=== PATIENT | female | born 1940 | race Caucasian/White ===

== ENCOUNTER 2018-08-11 09:06 | Inpatient (IN) | payer MEDICARE, OTHER ==
[~2018-08-11] VITALS: Ht 172.7 cm; Wt 84.6 kg
--- OUTSIDE RECORDS SUMMARY | 2018-08-11 09:10 | XMS REPORT | Continuity of Care Document ---
Author Author [facility] Interface Address Unknown Phone Unavailable Problems Problem Status Onset Date Classification Date Reported Comments Source ARANESP 100 MCG / [id number] / [id number] / D Active 07/06/2017 [facility] FERAHEME 510MG / [id number] / [id number] / DX: Active 04/09/2017 [facility] M25.561 - PAIN IN RIGHT KNEE Active 12/31/2015 [facility] [place] CKD (<span ID="[id number]">Confirmed</span>) Resolved Problem 08/16/2017 [facility] DM (<span ID="[id number]">Confirmed</span>) Resolved Problem 08/16/2017 [facility] HTN (<span ID="[id number]">Confirmed</span>) Resolved Problem 08/16/2017 [facility] Iron deficiency anemia Resolved Problem 08/16/2017 [facility] Arthritis Resolved Problem 08/16/2017 [facility] ANEMIA IN CHRONIC KIDNEY DISEASE Active [facility] CHRONIC KIDNEY DISEASE, UNSPECIFIED Active [facility] CHRONIC KIDNEY DISEASE, STAGE 4 (SEVERE) Active [facility] Medications Medication Details Route Status Patient Instructions Ordering Provider Order Date Source darbepoetin ryan 100 microgram, 1 mL, Route: SUB-Q, Drug form: INJ, ONCALL, Start date: 07/23/17 11:00:00 CDT, Duration: 8 hr, Stop date: 07/23/17 18:59:00 CDTNotes: (Same as: Aranesp) Non-Formulary Inactive 07/23/2017 [facility] darbepoetin ryan 100 microgram, 1 mL, Route: SUB-Q, Drug form: INJ, ONCALL, Start date: 07/16/17 11:00:00 CDT, Duration: 8 hr, Stop date: 07/16/17 18:59:00 CDTNotes: (Same as: Aranesp) Non-Formulary Inactive 07/16/2017 [facility] darbepoetin ryan 100 microgram, 1 mL, Route: SUB-Q, Drug form: INJ, ONCALL, Start date: 07/15/17 16:00:00 CDT, Duration: 6 hr, Stop date: 07/15/17 21:59:00 CDTNotes: (Same as: Aranesp) Non-Formulary No Longer Active 07/15/2017 [facility] Feraheme + sodium chloride 0.9% 100 mL INJ (for IV set) 100 mL 510 mg, 17 mL, 200 ml/hr, Infuse Over: 30 minutes, Route: IVPB, 100, ONCALL, Start date: 05/05/17 9:00:00 CDT, Duration: 10 hr, Stop date: 05/05/17 18:59:00 CDTNotes: USE IMMEDIATELY - PT IS ON CAMPUS ALREADY Same as: Feraheme Non- Formulary DO NOT administer undiluted IVP. This agent is reserved for use by Nephrologists in patients who are unable to tolerate oral therapy. MEDICATION WASTE Product Size: 510 mg Product Wasted: ___ mg Inactive 05/05/2017 [facility] Feraheme + sodium chloride 0.9% 100 mL INJ (for IV set) 100 mL 510 mg, 200 ml/hr, Infuse Over: 30 minutes, Route: IVPB, 100, ONCALL, Start date: 04/20/17 9:00:00 CDT, Duration: 10 hr, Stop date: 04/20/17 18:59:00 CDTNotes: Same as: Feraheme Non-Formulary DO NOT administer undiluted IVP. This agent is reserved for use by Nephrologists in patients who are unable to tolerate oral therapy. MEDICATION WASTE Product Size: 510 mg Product Wasted: ___ mg Inactive 04/20/2017 [facility] donepezil 10 mg, PO, Bedtime, 0 Refill(s) Active 04/13/2017 [facility] carvedilol 25 MG Oral Tablet [Coreg] 25 mg=1 tab, PO, BID, # 60 tab, 0 Refill(s) Active 04/13/2017 [facility] Insulin Glargine 100 UNT/ML Injectable Solution [Lantus] 24 unit, SUB-Q, Bedtime, 0 Refill(s) Active 04/13/2017 [facility] Diphenhydramine Hydrochloride 25 MG Oral Capsule [Benadryl] 25 mg=1 cap, PO, Bedtime, 0 Refill(s) Active 04/13/2017 [facility] Aspirin 81 mg, PO, Daily, 0 Refill(s) Active 04/13/2017 [facility] Iron Chews 65 mg, PO, BID, 0 Refill(s) Active 04/13/2017 [facility] pravastatin 20 mg oral tablet 20 mg=1 tab, PO, Bedtime, # 30 tab, 0 Refill(s) Active 04/13/2017 [facility] NovoLog 8 unit, SUB-Q, Daily, 0 Refill(s) Active 04/13/2017 [facility] Amlodipine 10 mg, PO, Daily, 0 Refill(s) Active 04/13/2017 [facility] Feraheme + sodium chloride 0.9% 100 mL INJ (for IV set) 100 mL 510 mg, 200 ml/hr, Infuse Over: 30 minutes, Route: IVPB, 100, ONCALL, Start date: 04/13/17 9:00:00 CDT, Duration: 10 hr, Stop date: 04/13/17 18:59:00 CDTNotes: Same as: Feraheme Non-Formulary DO NOT administer undiluted IVP. This agent is reserved for use by Nephrologists in patients who are unable to tolerate oral therapy. MEDICATION WASTE Product Size: 510 mg Product Wasted: ___ mg Inactive 04/13/2017 [facility] Allergies, Adverse Reactions, Alerts Substance Category Reaction Severity Reaction type Status Date Reported Comments Source Immunizations Immunization Date Given Site Status Last Updated Comments Source Results Order Name Results Value Reference Range Date Interpretation Comments Source HEMATOLOGY Hct 37.5 % 36.0 - 48.0 08/05/2017 [facility] HEMATOLOGY Hgb 12.3 g/dL 12.0 - 16.0 08/05/2017 [facility] HEMATOLOGY Hct 35.8 % 36.0 - 48.0 07/29/2017 [facility] HEMATOLOGY Hgb 11.5 g/dL 12.0 - 16.0 07/29/2017 [facility] HEMATOLOGY Hct 32.0 % 36.0 - 48.0 07/22/2017 [facility] HEMATOLOGY Hgb 10.6 g/dL 12.0 - 16.0 07/22/2017 [facility] Knee 1-2 Views unilateral DX Knee 1-2 Views unilateral DX EXAMINATION: Right knee AP and lateral. HISTORY: pain in right knee; right knee arthritis FINDINGS: Frontal and lateral views of the right knee are performed without comparison. There is a 3 component right total knee arthroplasty in near anatomic alignment without periprosthetic fracture or osteolysis. There is no right knee effusion. Arterial atherosclerotic calcifications are noted. IMPRESSION: 1. Right total knee arthroplasty in near-anatomic alignment. 12/31/2015 - - Read by: oJhann Charles MD Dictated Date/time: 12/31/15 14:25 Electronically Signed by: Johann Charles MD 12/31/15 14:26 FINAL REPORT [facility] Vital Signs Vital Sign Value Date Comments Source Heart Rate 60 07/22/2017 [facility] Respitory Rate 18 07/22/2017 [facility] Temperature Oral (F) 97.9 F 07/22/2017 [facility] Systolic (mm Hg) 122 07/22/2017 [facility] Diastolic (mm Hg) 73 07/22/2017 [facility] Height 172.72 cm 07/15/2017 [facility] Weight 76.818 07/15/2017 [facility] BMI Calculated 25.75 07/15/2017 [facility] Heart Rate 61 07/15/2017 [facility] Temperature Oral (F) 97.9 F 07/15/2017 [facility] Respitory Rate 18 07/15/2017 [facility] Systolic (mm Hg) 123 07/15/2017 [facility] Diastolic (mm Hg) 75 07/15/2017 [facility] Systolic (mm Hg) 164 05/05/2017 [facility] Diastolic (mm Hg) 75 05/05/2017 [facility] Respitory Rate 16 05/05/2017 [facility] Heart Rate 58 05/05/2017 [facility] Temperature Oral (F) 97.8 F 05/05/2017 [facility] Respitory Rate 18 04/13/2017 [facility] Systolic (mm Hg) 156 04/13/2017 [facility] Diastolic (mm Hg) 74 04/13/2017 [facility] Heart Rate 64 04/13/2017 [facility] Temperature Oral (F) 98.2 F 04/13/2017 [facility] Weight 79 04/12/2017 [facility] BMI Calculated 27.34 04/12/2017 [facility] Height 170 cm 04/12/2017 [facility] Encounters Location Location Details Encounter Type Encounter Number Reason For Visit Attending Provider ADM Date DC Date Status Source [facility] [id number] Cortez Carrillo Jr 12/31/2015 01/01/2016 [facility] Recurring [id number] Dimple Shepard 04/13/2017 05/13/2017 [facility] Recurring [id number] [place] Josesitojose 07/15/2017 08/14/2017 [facility] Procedures Procedure Code Date Perfomer Comments Source Bladder surveillance - check cystoscopy [id number] [facility] Hip replacement [id number] [facility] Hysterectomy [id number] [facility] Parathyroidectomy [id number] [facility]
--- OUTSIDE RECORDS SUMMARY | 2018-08-11 09:10 | XMS REPORT | Summary of Care ---
Author Author [facility] Organization [facility] Address Unknown Phone Unavailable Encounter VENTURA Mari(FIN) [id number] Date(s): 04/13/17 - 05/12/[address] [facility] [address] [place] [address]- Discharge Disposition: Home or Self Care Attending Physician: Dimple Shepard MD Referring Physician: Dimple Shepard MD Vital Signs Most recent to 1 2 oldest [Reference Range]: Height 170 cm (04/12/17 3:06 PM) Temperature Oral 97.8 DegF 98.2 DegF [96.4-99.1 DegF] (05/05/17 9:18 AM) (04/13/17 9:15 AM) Blood Pressure 164/75 mmHg 156/74 mmHg [90-140/60-90 mmHg] *HI* *HI* (05/05/17 9:18 AM) (04/13/17 9:15 AM) Respiratory Rate 16 BRMIN 18 BRMIN [14-20 BRMIN] (05/05/17 9:18 AM) (04/13/17 9:15 AM) Peripheral Pulse 58 bpm 64 bpm Rate [60-100 bpm] *LOW* (04/13/17 9:15 AM) (05/05/17 9:18 AM) Weight 79 kg (04/12/17 3:06 PM) Body Mass Index 27.34 m2 (04/12/17 3:06 PM) Problem List Condition Effective Dates Status Health Status Informant CKD (chronic kidney Resolved disease)(Confirmed) DM (diabetes Resolved mellitus)(Confirmed) HTN Resolved (hypertension)(Confi rmed) Iron deficiency Resolved anemia(Confirmed) Arthritis(Confirmed) Resolved Allergies, Adverse Reactions, Alerts Substance Reaction Severity Status NKDA Active Medications amLODIPine 10 mg, PO, Daily, 0 Refill(s) Start Date: 04/13/17 Status: Ordered aspirin 81 mg, PO, Daily, 0 Refill(s) Start Date: 04/13/17 Status: Ordered Benadryl 25 mg oral capsule 25 mg=1 cap, PO, Bedtime, 0 Refill(s) Start Date: 04/13/17 Status: Ordered Coreg 25 mg oral tablet 25 mg=1 tab, PO, BID, # 60 tab, 0 Refill(s) Start Date: 04/13/17 Status: Ordered donepezil 10 mg, PO, Bedtime, 0 Refill(s) Start Date: 04/13/17 Status: Ordered Feraheme + sodium chloride 0.9% 100 mL INJ (for IV set) 100 mL 510 mg, 200 ml/hr, Infuse Over: 30 minutes, Route: IVPB, 100, ONCALL, Start date : 04/20/17 9:00:00 CDT, Duration: 10 hr, Stop date: 04/20/17 18:59:00 CDT Notes: Same as: FerahemeNon-FormularyDO NOT administer undiluted IVP. This agen t is reserved for use by Nephrologists in patients who are unable to tolerate or al therapy. MEDICATION WASTE Product Size: 510 mgProduct Wasted: ___ mg Start Date: 04/20/17 Stop Date: 04/20/17 Status: Ordered Feraheme + sodium chloride 0.9% 100 mL INJ (for IV set) 100 mL 510 mg, 17 mL, 200 ml/hr, Infuse Over: 30 minutes, Route: IVPB, 100, ONCALL, Sta rt date: 05/05/17 9:00:00 CDT, Duration: 10 hr, Stop date: 05/05/17 18:59:00 CDT Notes: USE IMMEDIATELY - PT IS ON CAMPUS ALREADYSame as: FerahemeNon-FormularyDO NOT administer undiluted IVP. This agent is reserved for use by Nephrologists in patients who are unable to tolerate oral therapy. MEDICATION WASTE Prod uct Size: 510 mgProduct Wasted: ___ mg Start Date: 05/05/17 Stop Date: 05/05/17 Status: Completed Feraheme + sodium chloride 0.9% 100 mL INJ (for IV set) 100 mL 510 mg, 200 ml/hr, Infuse Over: 30 minutes, Route: IVPB, 100, ONCALL, Start date : 04/13/17 9:00:00 CDT, Duration: 10 hr, Stop date: 04/13/17 18:59:00 CDT Notes: Same as: Scott-FormularyDO NOT administer undiluted IVP. This agen t is reserved for use by Nephrologists in patients who are unable to tolerate or al therapy. MEDICATION WASTE Product Size: 510 mgProduct Wasted: ___ mg Start Date: 04/13/17 Stop Date: 04/13/17 Status: Completed Iron Chews 65 mg, PO, BID, 0 Refill(s) Start Date: 04/13/17 Status: Ordered Lantus 100 units/mL 24 unit, SUB-Q, Bedtime, 0 Refill(s) Start Date: 04/13/17 Status: Ordered NovoLOG 8 unit, SUB-Q, Daily, 0 Refill(s) Start Date: 04/13/17 Status: Ordered pravastatin 20 mg oral tablet 20 mg=1 tab, PO, Bedtime, # 30 tab, 0 Refill(s) Start Date: 04/13/17 Status: Ordered Results No data available for this section Immunizations No data available for this section Procedures Procedure Date Related Diagnosis Body Site Bladder surveillance - check cystoscopy Hip replacement Hysterectomy Parathyroidectomy Social History Social History Type Response Smoking Status Never smoker; Ready to change: Yes; Concerns about tobacco use in household: Yes; Exposure to Tobacco Smoke None; Cigarette Smoking Last 365 Days No; Reg Smoking Cessation Counseling Yes Assessment and Plan No data available for this section
--- OUTSIDE RECORDS SUMMARY | 2018-08-11 09:10 | XMS REPORT | Summary of Care ---
Author Author [facility] Organization [facility] Address Unknown Phone Unavailable Encounter VENTURA Mari(PATRICK) [id number] Date(s): 07/15/17 - 08/13/17 [facility] [address] [place] [address]- [phone] Discharge Disposition: Home or Self Care Attending Physician: Dimple Shepard MD Referring Physician: Franklin Suggs MD Vital Signs Most recent to 1 2 oldest [Reference Range]: Height 172.72 cm (07/15/17 3:35 PM) Temperature Oral 97.9 DegF 97.9 DegF [96.4-99.1 DegF] (07/22/17 1:30 PM) (07/15/17 2:01 PM) Blood Pressure 122/73 mmHg 123/75 mmHg [90-140/60-90 mmHg] (07/22/17 1:30 PM) (07/15/17 2:01 PM) Respiratory Rate 18 BRMIN 18 BRMIN [14-20 BRMIN] (07/22/17 1:30 PM) (07/15/17 2:01 PM) Peripheral Pulse 60 bpm 61 bpm Rate [60-100 bpm] (07/22/17 1:30 PM) (07/15/17 2:01 PM) Weight 76.818 kg (07/15/17 3:35 PM) Body Mass Index 25.75 m2 (07/15/17 3:35 PM) Problem List Condition Effective Dates Status Health Status Informant CKD (chronic kidney Resolved disease)(Confirmed) DM (diabetes Resolved mellitus)(Confirmed) HTN Resolved (hypertension)(Confi rmed) Iron deficiency Resolved anemia(Confirmed) Arthritis(Confirmed) Resolved Allergies, Adverse Reactions, Alerts Substance Reaction Severity Status NKDA Active Medications darbepoetin ryan 100 microgram, 1 mL, Route: SUB-Q, Drug form: INJ, ONCALL, Start date: 07/15/17 16:00:00 CDT, Duration: 6 hr, Stop date: 07/15/17 21:59:00 CDT Notes: (Same as: Radha)Non-Formulary Start Date: 07/15/17 Stop Date: 07/22/17 Status: Deleted darbepoetin ryan 100 microgram, 1 mL, Route: SUB-Q, Drug form: INJ, ONCALL, Start date: 07/23/17 11:00:00 CDT, Duration: 8 hr, Stop date: 07/23/17 18:59:00 CDT Notes: (Same as: Radha)Non-Formulary Start Date: 07/23/17 Stop Date: 07/23/17 Status: Ordered darbepoetin ryan 100 microgram, 1 mL, Route: SUB-Q, Drug form: INJ, ONCALL, Start date: 07/16/17 11:00:00 CDT, Duration: 8 hr, Stop date: 07/16/17 18:59:00 CDT Notes: (Same as: Radha)Non-Formulary Start Date: 07/16/17 Stop Date: 07/16/17 Status: Completed Results HEMATOLOGY 1 2 3 Most recent to oldest [Reference Range]: 12.3 g/dL (08/05/17 2:02 PM) 11.5 g/dL *LOW* (07/29/17 1:59 PM) 10.6 g/dL *LOW* (07/22/17 1:37 PM) Hgb [12.0-16.0 g/dL] 37.5 % (08/05/17 2:02 PM) 35.8 % *LOW* (07/29/17 1:59 PM) 32.0 % *LOW* (07/22/17 1:37 PM) Hct [36.0-48.0 %] Immunizations No data available for this section [...]
--- OUTSIDE RECORDS SUMMARY | 2018-08-11 09:10 | XMS REPORT | Summary of Care ---
Author Author [facility] [place] Organization [facility] [place] Address Unknown Phone Unavailable Encounter [facility] Janer_devaughnmildred(FIN) [id number] Date(s): 12/31/15 - 12/31/15 [facility] [place] [address] [place], [place] [address] [phone] Discharge Disposition: Home Attending Physician: Cortez Scott MD Vital Signs No data available for this section Problem List No data available for this section Allergies, Adverse Reactions, Alerts No data available for this section Medications No data available for this section Results No data available for this section Immunizations No data available for this section Procedures No data available for this section Social History No data available for this section Assessment and Plan No data available for this section
--- OUTSIDE RECORDS SUMMARY | 2018-08-11 09:10 | XMS REPORT | Clinical Summary ---
Author Author [facility] Organization [facility] Address Unknown Phone Unavailable Care Team Providers Care Marketing Traffic Coordinator Name Role Phone Chris Hartmann MD PCP Allergies Active Allergy Reactions Severity Noted Date Comments Codeine 11/08/2017 Current Medications Prescription Sig. Disp. Refills Start End Date Status Date amLODIPine (NORVASC) 10 Take 10 mg by mouth Active mg tablet daily. donepezil (ARICEPT) 10 MG Take 10 mg by mouth Active tablet nightly. aspirin (ECOTRIN) 81 MG Take 81 mg by mouth Active enteric coated tablet daily. pravastatin (PRAVACHOL) Take 20 mg by mouth Active 20 MG tablet daily. lisinopril Take 20 mg by mouth Active (PRINIVIL,ZESTRIL) 20 mg daily. tablet ferrous sulfate 325 (65 Take 65 mg by mouth 2 Active FE) MG tablet (two) times a day. carvedilol (COREG) 25 MG Take 25 mg by mouth 2 Active tablet (two) times a day with meals. insulin ASPART (NovoLOG) Inject 3 Units under the Active 100 unit/mL injection skin 3 (three) times a day before meals. insulin GLARGINE (LANTUS) Inject 13 Units under the Active 100 unit/mL injection skin nightly. (vial) diphenhydrAMINE Take 25 mg by mouth Active (BENADRYL) 25 mg tablet nightly as needed for sleep. hydroCHLOROthiazide Take 12.5 mg by mouth 11/11/19 Discontin (MICROZIDE) 12.5 mg every morning. 18 ued capsule Active Problems Problem Noted Date Dialysis patient (HCC) 11/09/2017 End stage renal disease (HCC) 11/08/2017 Encounters Date Type Specialty Care Team Description 11/08/2017 [facility] General Surgery Maxx Iverson MD End stage renal disease - Encounter (Primary Dx); 11/11/2017 Dialysis patient after 08/10/2017 Social History Tobacco Use Types Packs/Day Years Used Date Former Smoker Quit: 11/08/1998 Smokeless Tobacco: Former User Alcohol Use Drinks/Week oz/Week Comments No Sex Assigned at Date Recorded Not on file Last Filed Vital Signs Vital Sign Reading Time Taken Blood Pressure 130/70 11/11/2017 10:58 AM [employer] Pulse 60 11/11/2017 10:58 AM [employer]EL AUTOM[employer] TECHNICIAN Temperature 36.8 C (98.2 F) 11/11/2017 10:58 AM [employer]IESEL AUTOMOTIVE TECHNICIAN Respiratory Rate 20 11/11/2017 10:58 AM [employer]EL AUTOMOTIVE TECHNICIAN Oxygen Saturation 98% 11/11/2017 10:58 AM [employer]EL AUTOMOTIVE TECHNICIAN Inhaled Oxygen - - Concentration Weight - - Height 172.7 cm (5' 8") 11/09/2017 6:00 AM DIESEL AUTOMOTIVE TECHNICIAN Body Mass Index - - Plan of Treatment Health Maintenance Due Date Last Done Comments SHINGRIX VACCINE (#1) 1990 ZOSTER VACCINE 2000 PNEUMOCOCCAL 2005 POLYSACCHARIDE VACCINE AGE 65 AND OVER PNEUMOCOCCAL-13 2005 INFLUENZA VACCINE 05/04/2018 Procedures Procedure Name Priority Date/Time Associated Diagnosis Comments POC GLUCOSE Routine 11/11/2017 Results for this 11:32 AM [employer]EL [employer] TECHNICIAN procedure are in the results section. POC GLUCOSE Routine 11/11/2017 Results for this 5:41 AM DIESEL AUTOMOTIVE TECHNICIAN procedure are in the results section. POC GLUCOSE Routine 11/10/2017 Results for this 8:13 PM [employer]EL AUTOMOTIVE TECHNICIAN procedure are in the results section. POC GLUCOSE Routine 11/10/2017 Results for this 4:12 PM [employer]EL AUTOMOTIVE TECHNICIAN procedure are in the results section. POC GLUCOSE Routine 11/10/2017 Results for this 11:33 AM DIESEL AUTOMOTIVE TECHNICIAN procedure are in the results section. POC GLUCOSE Routine 11/10/2017 Results for this 9:44 AM DIESEL AUTOMOTIVE TECHNICIAN procedure are in the results section. POC GLUCOSE Routine 11/10/2017 Results for this 5:42 AM DIESEL AUTOMOTIVE TECHNICIAN procedure are in the results section. POC GLUCOSE Routine 11/09/2017 Results for this 4:58 PM [employer]IESEL AUTOMOTIVE TECHNICIAN procedure are in the results section. POC GLUCOSE Routine 11/09/2017 Results for this 12:45 PM [employer]EL AUTOMOTIVE TECHNICIAN procedure are in the results section. POC GLUCOSE Routine 11/09/2017 Results for this 11:53 AM DIESEL AUTOMOTIVE TECHNICIAN procedure are in the results section. XR CHEST 2 VW Routine 11/09/2017 Results for this 9:15 AM DIESEL AUTOMOTIVE TECHNICIAN procedure are in the results section. POC GLUCOSE Routine 11/09/2017 Results for this 6:29 AM DIESEL AUTOMOTIVE TECHNICIAN procedure are in the results section. POC GLUCOSE Routine 11/09/2017 Results for this 5:52 AM DIESEL AUTOMOTIVE TECHNICIAN procedure are in the results section. HEPATITIS B SURFACE AB, Routine 11/09/2017 Results for this QUANTITATIVE 4:26 AM [employer]IESEL AUTOMOTIVE TECHNICIAN procedure are in the results section. ZZESTIMATED GFR Routine 11/09/2017 Results for this 4:16 AM DIESEL AUTOMOTIVE TECHNICIAN procedure are in the results section. HEPATIC FUNCTION PANEL Routine 11/09/2017 Results for this 4:16 AM DIESEL AUTOMOTIVE TECHNICIAN procedure are in the results section. BASIC METABOLIC PANEL Routine 11/09/2017 Results for this 4:16 AM DIESEL AUTOMOTIVE TECHNICIAN procedure are in the results section. HC COMPLETE BLD COUNT Routine 11/09/2017 Results for this W/AUTO DIFF 4:16 AM DIESEL AUTOMOTIVE TECHNICIAN procedure are in the results section. ECG 12-LEAD Routine 11/09/2017 Results for this 2:16 AM DIESEL AUTOMOTIVE TECHNICIAN procedure are in the results section. POC GLUCOSE Routine 11/08/2017 Results for this 9:06 PM [employer]IESEL AUTOMOTIVE TECHNICIAN procedure are in the results section. ZZESTIMATED GFR Routine 11/08/2017 Results for this 8:00 PM DIESEL AUTOMOTIVE TECHNICIAN procedure are in the results section. PROTHROMBIN TIME WITH INR Routine 11/08/2017 Results for this 8:00 PM [employer]IESEL AUTOMOT[employer] TECHNICIAN procedure are in the results section. HC COMPLETE BLD COUNT Routine 11/08/2017 Results for this W/AUTO DIFF 8:00 PM DIESEL AUTOMOTIVE TECHNICIAN procedure are in the results section. BASIC METABOLIC PANEL Routine 11/08/2017 Results for this 8:00 PM DIESEL AUTOMOTIVE TECHNICIAN procedure are in the results section. HEPATITIS B CORE ANTIBODY Routine 11/08/2017 Results for this TOTAL 8:00 PM [employer]IESEL AUTOMOT[employer] TECHNICIAN procedure are in the results section. HEPATITIS C ANTIBODY Routine 11/08/2017 Results for this 8:00 PM [employer]IESEL AUTOMOTIVE TECHNICIAN procedure are in the results section. HEPATITIS B CORE ANTIBODY Routine 11/08/2017 Results for this IGM 8:00 PM [employer]IESEL AUTOMOTIVE TECHNICIAN procedure are in the results section. HEPATITIS B SURFACE Routine 11/08/2017 Results for this ANTIBODY 8:00 PM DIESEL AUTOMOTIVE TECHNICIAN procedure are in the results section. HEPATITIS B SURFACE Routine 11/08/2017 Results for this ANTIGEN 8:00 PM DIESEL AUTOMOTIVE TECHNICIAN procedure are in the results section. HEMODIALYSIS Routine 11/08/2017 4:41 PM DIESEL AUTOMOTIVE TECHNICIAN after 08/10/2017 Results * POC glucose (11/11/2017 11:32 AM) Only the most recent of 13 results within the time period is included. POC glucose 113 (H) 65 - 99 mg/dL [facility] DEPARTMENT OF Comment: PATHOLOGY AND Meter ID: [id number] GENOMIC MEDICINE Construction Grip: Jasbir Vincent Performing Organization Address City/State/Zipcode Phone Number [facility] [place] [address] [place] [address] PATHOLOGY AND GENOMIC MEDICINE * XR Chest 2 Vw (11/09/2017 9:15 AM) Narrative Performed At EXAMINATION:XR CHEST 2 VW RADIANT CLINICAL HISTORY:dialysis setup COMPARISON:July 14, 2016 FINDINGS: The heart is enlarged. The mediastinum is otherwise unremarkable with mild tortuosity of the thoracic aorta. Severe hypertrophic degenerative changes are present involving the thoracic spine. There are chronic changes throughout the lungs with scarring bilaterally. An element of mild interstitial edema is not excluded. There is slight blunting of the right costophrenic sulcus which is stable and probably represents mild pleural thickening. IMPRESSION: Cardiomegaly with chronic changes. An element of mild interstitial edema is not excluded although the findings are probably mostly chronic [id number] Procedure Note Hm Interface, Radiology Results Incoming - 11/09/2017 9:45 AM DIESEL AUTOMOTIVE TECHNICIAN EXAMINATION: XR CHEST 2 VW CLINICAL HISTORY: dialysis setup COMPARISON: July 14, 2016 FINDINGS: The heart is enlarged. The mediastinum is otherwise unremarkable with mild tortuosity of the thoracic aorta. Severe hypertrophic degenerative changes are present involving the thoracic spine. There are chronic changes throughout the lungs with scarring bilaterally. An element of mild interstitial edema is not excluded. There is slight blunting of the right costophrenic sulcus which is stable and probably represents mild pleural thickening. IMPRESSION: Cardiomegaly with chronic changes. An element of mild interstitial edema is not excluded although the findings are probably mostly chronic [id number] Performing Organization Address City/[facility]/Zipcode Phone Number [facility] [address] [place] [address] * Hepatitis B surface Ab, quantitative (11/09/2017 4:26 AM) Hepatitis B surface Ab <3.10 IU/L [facility] Comment: The anti-HBs is less than 10 IU/L and is therefore negative. There is no evidence of recovery from hepatitis B infection or evidence of antibody response to HBV vaccination. An anti-HBs result greater than or equal to 10 IU/L implies immunity. For post-vaccination antibody testing guidelines for the general public refer to MMWR September 25, 2005/Vol. 54(No. 16);10-26, and for healthcare workers refer to MMWR September 22, 2013/Vol. 62(No. 10);10-22. Reference Interval: anti-HBs 9.99 IU/L or less ....... Negative 10.00 IU/L or greater .... Positive Results greater than 1,000.00 IU/L are reported as greater than 1,000.00 IU/L. This assay should not be used for blood donor screening, associated re-entry protocols, or for screening Human Cell, Tissues and Cellular and Tissue-Based Products (HCT/P). Performed by [employer], [address] [place] [address] [id number] [email or web address], Ronnie Antoine MD - Lab. Director Specimen Serum Performing Organization Address City/[facility] Phone Number [employer] [facility] [address] [place] [address] * Estimated GFR (11/09/2017 4:16 AM) Only the most recent of 2 results within the time period is included. GFR Non Af Amer 20 (A) mL/min/1.73 m2 [facility] DEPARTMENT OF PATHOLOGY AND GENOMIC MEDICINE GFR Af Amer 24 (A) mL/min/1.73 m2 [facility] DEPARTMENT OF Comment: PATHOLOGY AND Chronic kidney disease: <60 GENOMIC MEDICINE mL/min/1.73m2 Kidney failure: <15 mL/min/1.73m2 The estimated GFR is calculated from the IDMS-traceable Modification of Diet in Renal Disease Equation. The accuracy of the calculation is poor when the creatinine is normal. Calculated values >90 mL/min/1.73m2 are not reported. This equation has not been validated in children (<18 years), women, the elderly (>70 years), or ethnic groups other than Caucasians and Americans. Specimen Plasma specimen Performing Organization Address City/State/Zipcode Phone Number [facility] DEPARTMENT OF [facility] [place] [address] PATHOLOGY AND GENOMIC MEDICINE * CBC with platelet and differential (11/09/2017 4:16 AM) Only the most recent of 2 results within the time period is included. WBC 6.92 4.50 - 11.00 k/uL [facility] DEPARTMENT OF PATHOLOGY AND GENOMIC MEDICINE RBC 2.95 (L) 4.20 - 5.50 m/uL [facility] DEPARTMENT OF PATHOLOGY AND GENOMIC MEDICINE HGB 9.2 (L) 12.0 - 16.0 g/dL [facility] DEPARTMENT OF PATHOLOGY AND GENOMIC MEDICINE HCT 27.8 (L) 37.0 - 47.0 % [facility] DEPARTMENT OF PATHOLOGY AND GENOMIC MEDICINE MCV 94.2 82.0 - 100.0 fL [facility] DEPARTMENT OF PATHOLOGY AND GENOMIC MEDICINE MCH 31.2 27.0 - 34.0 pg [facility] DEPARTMENT OF PATHOLOGY AND GENOMIC MEDICINE MCHC 33.1 31.0 - 37.0 g/dL [facility] DEPARTMENT OF PATHOLOGY AND GENOMIC MEDICINE RDW - SD 47.1 37.0 - 55.0 fL [facility] DEPARTMENT OF PATHOLOGY AND GENOMIC MEDICINE MPV 15.0 (H) 8.8 - 13.2 fL [facility] DEPARTMENT OF PATHOLOGY AND GENOMIC MEDICINE Platelet count 92 (L) 150 - 400 k/uL [facility] DEPARTMENT OF PATHOLOGY AND GENOMIC MEDICINE Nucleated RBC 0.00 /100 WBC [facility] DEPARTMENT OF PATHOLOGY AND GENOMIC MEDICINE Neutrophils 62.0 39.0 - 69.0 % [facility] DEPARTMENT OF PATHOLOGY AND GENOMIC MEDICINE Lymphocytes 22.4 (L) 25.0 - 45.0 % [facility] DEPARTMENT OF PATHOLOGY AND GENOMIC MEDICINE Monocytes 9.2 0.0 - 10.0 % [facility] DEPARTMENT OF PATHOLOGY AND GENOMIC MEDICINE Eosinophils 5.3 (H) 0.0 - 5.0 % [facility] DEPARTMENT OF PATHOLOGY AND GENOMIC MEDICINE Basophils 0.7 0.0 - 1.0 % [facility] DEPARTMENT OF PATHOLOGY AND GENOMIC MEDICINE Immature granulocytes 0.4Comment: "Immature 0.0 - 1.0 % [facility] DEPARTMENT OF granulocytes" (promyelocytes, PATHOLOGY AND myelocytes, metamyelocytes) [facility] Specimen Blood Performing Organization Address City/State/Zipcode Phone [place] [facility] [place] [address] [place] [address] PATHOLOGY AND GENOMIC MEDICINE * Hepatic function panel (11/09/2017 4:16 AM) Albumin 3.7 3.5 - 5.0 g/dL [facility] DEPARTMENT OF PATHOLOGY AND GENOMIC MEDICINE Total bilirubin 0.3 0.0 - 1.2 mg/dL [facility] DEPARTMENT OF PATHOLOGY AND GENOMIC MEDICINE Bilirubin direct <0.1 0.0 - 0.3 mg/dL [facility] DEPARTMENT OF PATHOLOGY AND GENOMIC MEDICINE Alkaline phosphatase 77 35 - 104 U/L [facility] DEPARTMENT OF PATHOLOGY AND GENOMIC MEDICINE Protein 6.2 (L) 6.3 - 8.3 g/dL [facility] DEPARTMENT OF Comment: PATHOLOGY AND [facility] MEDICINE 4.6-7.0 g/dL 1 week 4.4-7.6 g/dL 7 months-1year 5.1-7.3 g/dL 1-2 years5.6-7 .5 g/dL >3 years6.0-8 .0 g/dL 18-150 6.3-8.3 g/dL ALT 12 5 - 50 U/L [facility] DEPARTMENT OF PATHOLOGY AND GENOMIC MEDICINE AST 10 10 - 35 U/L [facility] DEPARTMENT OF PATHOLOGY AND GENOMIC MEDICINE Specimen Plasma specimen Performing Organization Address City/[facility] Phone Number [place] [phone] [place] [address] PATHOLOGY [facility] * Basic metabolic panel (11/09/2017 4:16 AM) Only the most recent of 2 results within the time period is included. Sodium 145 135 - 148 mEq/L [facility] DEPARTMENT OF PATHOLOGY AND GENOMIC MEDICINE Potassium 3.1 (L) 3.5 - 5.0 mEq/L [facility] DEPARTMENT OF PATHOLOGY AND GENOMIC MEDICINE Chloride 103 98 - 112 mEq/L [facility] DEPARTMENT OF PATHOLOGY AND GENOMIC MEDICINE CO2 29 24 - 31 mEq/L [facility] DEPARTMENT OF PATHOLOGY AND GENOMIC MEDICINE Anion gap 13 7 - 15 mEq/L [facility] DEPARTMENT OF Comment: PATHOLOGY AND Starting from January [facility] , anion gap calculation no longer incorporates potassium. Please note the change. BUN 30 (H) 8 - 23 mg/dL [facility] DEPARTMENT OF PATHOLOGY AND GENOMIC MEDICINE Creatinine 2.4 (H) 0.5 - 0.9 mg/dL [facility] DEPARTMENT OF PATHOLOGY AND GENOMIC MEDICINE Glucose 65 65 - 99 mg/dL [facility] DEPARTMENT OF PATHOLOGY AND GENOMIC MEDICINE Calcium 9.3 8.8 - 10.2 mg/dL [facility] DEPARTMENT OF PATHOLOGY AND GENOMIC MEDICINE Specimen Plasma specimen Performing Organization Address City/[facility]/Zipcode Phone Number [address] [place] [address] PATHOLOGY AND GENOMIC MEDICINE * ECG 12 lead (11/09/2017 2:16 AM) Ventricular rate 69 [facility] Atrial rate 69 [facility] OK interval 194 [facility] QRSD interval 154 [facility] QT interval 436 [facility] QTC interval 467 [facility] P axis 1 56 [facility] QRS axis 1 -54 [facility] T wave axis 10 [facility] EKG impression Normal sinus rhythm-Left axis [facility] deviation-Nonspecific intraventricular block-Abnormal ECG-In automated comparison with ECG of 09-NOV-2017 02:15,-No significant change was found-Right bundle branch block- Performing Organization Address [facility]/Zipcode [place] [address] * Hepatitis C antibody (11/08/2017 8:00 PM) Hepatitis C Ab Nonreactive Non-reactive [facility] DEPARTMENT OF PATHOLOGY AND GENOMIC MEDICINE Specimen Blood Performing Organization Address [facility] Phone Number [address] [place] [address] PATHOLOGY AND [facility] MEDICINE * Hepatitis B core antibody IgM (11/08/2017 8:00 PM) Hepatitis B core IgM Nonreactive Non-reactive [facility] DEPARTMENT PATHOLOGY AND [facility] Specimen Blood Performing Organization Address [facility] Phone Number [address] [place] [address] PATHOLOGY AND [facility] MEDICINE * Hepatitis B core antibody total (11/08/2017 8:00 PM) Hepatitis B core total Ab Non-reactive Non-reactive [facility] DEPARTMENT OF PATHOLOGY AND GENOMIC MEDICINE Specimen Blood Performing Organization Address City/[facility]/[place] [address] PATHOLOGY AND [facility] MEDICINE * Hepatitis B surface antibody (11/08/2017 8:00 PM) Hepatitis B surface Ab Nonreactive Non-reactive [facility] DEPARTMENT OF PATHOLOGY AND GENOMIC MEDICINE Specimen Blood Performing Organization Address City/[facility]/Zipcode Phone Number [address] [place] [address] PATHOLOGY AND GENOMIC MEDICINE * Hepatitis B surface antigen (11/08/2017 8:00 PM) Hepatitis B surface Ag Nonreactive Non-reactive [facility] DEPARTMENT OF PATHOLOGY AND GENOMIC MEDICINE Specimen Blood Performing Organization Address City/[facility]/Zipcode Phone Number [facility] DEPARTMENT OF [address] [place] [address] [place] [address] PATHOLOGY AND GENOMIC MEDICINE * Prothrombin time with INR (11/08/2017 8:00 PM) Prothrombin time 14.5 12.0 - 15.0 sec [facility] DEPARTMENT OF PATHOLOGY AND GENOMIC MEDICINE INR 1.1 [facility] DEPARTMENT OF Comment: PATHOLOGY AND The International Normalized GENOMIC MEDICINE Ratio (INR) is a therapeutic monitoring tool for patients who are stable on oral anticoagulant therapy. An INR of 2.0-3.0 is suggested for deep vein thrombosis/pulmonary embolism. Specimen Blood Performing Organization Address [facility] Phone Number [facility] DEPARTMENT [address] [place] [address] PATHOLOGY AND GENOMIC MEDICINE after 08/10/2017 Insurance Payer Benefit Subscriber ID Type Phone Address Plan / Group [facility] MEDIC[facility] UNITED/CAR xxxxxxxxx HMO E CORINNA HULL
[2018-08-11] MEDS ORDERED: MORPHINE SULFATE 2 MG/ML SYR IV STA (10:24)
[2018-08-11] MEDS ORDERED: ONDANSETRON HCL INJ 2 MG/ML VIAL IV STA (10:24)
[2018-08-11] MEDS ORDERED: SODIUM CHLORIDE 0.9% 250ML 250 ML IV ONE (10:30)
[2018-08-11] MEDS ORDERED: MORPHINE SULFATE 2 MG/ML SYR ONE (11:00)
[2018-08-11] MEDS ORDERED: ONDANSETRON HCL INJ 2 MG/ML VIAL ONE (11:00)
[2018-08-11 11:20] LABS: BASOPHILS # (AUTO) 0.1 (0.0-0.1); BASOPHILS % 0.5 % (0.0-1.0); EOSINOPHILS # (AUTO) 0.4 (0.0-0.4); EOSINOPHILS % 2.8 % (0.0-6.0); HEMATOCRIT 30.1 % (34.2-44.1); HEMOGLOBIN 9.9 g/dL (12.0-16.0); LYMPHOCYTES % 6.9 % (18.0-39.1); MEAN CORPUSCULAR HEMOGLOBIN 33.1 pg (28-32); MEAN CORPUSCULAR HGB CONC 32.9 g/dL (31-35); MEAN CORPUSCULAR VOLUME 100.7 fL (81-99); MONOCYTES # (AUTO) 0.4 (0.2-0.8); MONOCYTES % 2.5 % (4.4-11.3); NEUTROPHILS % 86.6 % (38.7-80.0); PLATELET COUNT 109 x10e3/uL (140-360); RED BLOOD COUNT 2.99 x10e6/uL (3.6-5.1); RED CELL DISTRIBUTION WIDTH 14.1 % (11.7-14.4)
[2018-08-11 11:33] LABS: INR 1.05; PROTHROMBIN TIME 14.7 seconds (11.9-14.5)
[2018-08-11 11:34] LABS: PARTIAL THROMBOPLASTIN TIME 28.8 seconds (23.8-35.5)
[2018-08-11 11:43] LABS: ALBUMIN 3.6 g/dL (3.5-5.0); ALBUMIN/GLOBULIN RATIO 1.1 (0.8-2.0); ANION GAP 20.5 mmol/L (8-16); CALCIUM 9.2 mg/dL (8.4-10.2); CREATININE, SERUM 7.11 mg/dL (0.57-1.11); POTASSIUM 4.5 mmol/L (3.5-5.1)
--- NOTE | 2018-08-11 12:17 | Diagnostic Imaging Report ---
Exam: Left hip radiographs two views, AP radiograph of the pelvis History: Left hip injury Comparison: <None.> Findings: There is a displaced, comminuted left intertrochanteric femoral neck fracture. There is associated apex lateral angulation and impaction measuring up to 3 cm. The femoroacetabular alignment is maintained. AP radiograph of the pelvis demonstrates right hip arthroplasty with severe degenerative changes of bilateral hips. There are moderate degenerative changes of the pubic symphysis and sacroiliac joints bilaterally. Diffuse osteopenia and bowel gas markedly limits evaluation of the sacrum. Atherosclerotic vascular calcifications. Impression: Displaced, comminuted left intertrochanteric femoral neck fracture. Status post right hip arthroplasty. Inability to evaluate the sacrum due to osteopenia and overlying bowel gas. Signed by: Dr. Primo Gale MD on 08/11/2018 12:13 PM
--- NOTE | 2018-08-11 12:21 | Diagnostic Imaging Report ---
EXAMINATION: CHEST SINGLE (PORTABLE) COMPARISON: None FINDINGS: TUBES and LINES: None. LUNGS: Lungs are well inflated. Mild patchy bibasilar opacities, likely atelectasis. There is no evidence of pneumonia or pulmonary edema. PLEURA: No pleural effusion or pneumothorax. Biapical pleural parenchymal opacity. HEART AND MEDIASTINUM: Mildly enlarged cardiomediastinal silhouette. Atherosclerotic calcification of the aortic arch. BONES AND SOFT TISSUES: No acute osseous lesion. Soft tissues are unremarkable. UPPER ABDOMEN: No free air under the diaphragm. IMPRESSION: No acute radiographic abnormality. Mild patchy bibasilar opacities, likely atelectasis. Mild cardiomegaly without pulmonary edema. Signed by: Dr. Primo Gale MD on 08/11/2018 12:18 PM
[2018-08-11 13:45] LABS: BILIRUBIN,URINE NEGATIVE (NEGATIVE); CLARITY,URINE CLEAR (CLEAR); COLOR,URINE YELLOW (YELLOW); KETONES,URINE NEGATIVE (NEGATIVE); LEUKOCYTE ESTERASE ,URINE NEGATIVE (NEGATIVE); NITRITE,URINE NEGATIVE (NEGATIVE); PROTEIN,URINE DIPSTICK 2+ (NEGATIVE); URINE UROBILINOGEN 0.2 mg/dL (0.2 - 1)
[2018-08-11 14:01] LABS: BACTERIA,URINE RARE /HPF; EPITHELIAL CELLS,URINE RARE /LPF; WBC,URINE (MAN) 0-5 /HPF (0-5)
[2018-08-11] MEDS ORDERED: SODIUM CHLORIDE FLUSH 10 ML SYR INJ PRN (14:45)
[2018-08-11] MEDS ORDERED: DEXTROSE 50% SYRINGE 50 ML IV PRN (14:45)
[2018-08-11] MEDS ORDERED: HYDROMORPHONE 1MG/1ML INJ IV PRN (14:45)
--- OUTSIDE RECORDS SUMMARY | 2018-08-11 14:51 | XMS REPORT ---
Author Author [facility] Address Unknown Phone Unavailable Care Team Providers Care Supervisor Claims Name Role Phone Rl HELLER Unavailable Unavailable Problems This patient has no known problems. Allergies, Adverse Reactions, Alerts This patient has no known allergies or adverse reactions. Medications This patient has no known medications. Results Test Description Test Time Test Comments Text Results Atomic Results Result Comments HIP LEFT 2-3 VW (+/- PELVIS) 2018-08-11 12:07:00 [place] [id number] Patient Name: BEN GALLAGHER MR #: [id number] : 1940 Age/Sex: 78/F Req #: [id number] Adm Physician: Ordered by: BHAKTI HELLER MD Report #: [id number] Location: ER Room/Bed: Procedure: [id number] DX/HIP LEFT 2-3 VW (+/- PELVIS) Exam Date: Exam Time: REPORT STATUS: Signed Exam: Left hip radiographs two views, AP radiograph of the pelvis History: Left hip injury Comparison: <None.> Findings: There is a displaced, comminuted left intertrochanteric femoral neck fracture. There is associated apex lateral angulation and impaction measuring up to 3 cm. The femoroacetabular alignment is maintained. AP radiograph of the pelvis demonstrates right hip arthroplasty with severe degenerative changes of bilateral hips. There are moderate degenerative changes of the pubic symphysis and sacroiliac joints bilaterally. Diffuse osteopenia and bowel gas markedly limits evaluation of the sacrum. Atherosclerotic vascular calcifications. Impression: Displaced, comminuted left intertrochanteric femoral neck fracture. Status post right hip arthroplasty. Inability to evaluate the sacrum due to osteopenia and overlying bowel gas. Signed by: Dr. Yo Munoz MD on 08/11/2018 12:13 PM Dictated By: YO MUNOZ MD 1213 Transcribed By: GAYLA on 08/11/18 1213 COPY TO: BHAKTI HELLER MD CHEST SINGLE (PORTABLE) 2018-08-11 12:05:00 [place] [id number] Patient Name: BEN GALLAGHER MR #: [id number] : 1940 Age/Sex: 78/F Req #: [id number] Adm Physician: Ordered by: BHAKTI HELLER MD Report #: [id number] Location: ER Room/Bed: Procedure: [id number] DX/CHEST SINGLE (PORTABLE) Exam Date: 08/11/18 Exam Time: 1110 REPORT STATUS: Signed EXAMINATION: CHEST SINGLE (PORTABLE) COMP ARISON: None FINDINGS: TUBES and LINES: None. LUNGS: Lungs are well inflated. Mild patchy bibasilar opacities, likely atelectasis. There is no evidence of pneumonia or pulmonary edema. PLEURA: No pleural effusion or pneumothorax. Biapical pleural parenchymal opacity. HEART AND MEDIASTINUM: Mildly enlarged cardiomediastinal silhouette. Atherosclerotic calcification of the aortic arch. BONES AND SOFT TISSUES: No acute osseous lesion. Soft tissues are unremarkable. UPPER ABDOMEN: No free air under the diaphragm. IMPRESSION: No acute radiographic abnormality. Mild patchy bibasilar opacities, likely atelectasis. Mild cardiomegaly without pulmonary edema. Signed by: Dr. Yo Munoz MD on 08/11/2018 12:18 PM Dictated By: YO MUNOZ MD 1218 Transcribed By: GAYLA on 08/11/18 1218 COPY TO: BHAKTI HELLER MD
--- OUTSIDE RECORDS SUMMARY | 2018-08-11 14:51 | XMS REPORT | Clinical Summary ---
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 Name Role Phone Chris Hartmann MD PCP [...] Date Type Specialty Care Team Description 11/08/2017 [facility] General Surgery Maxx Iverson MD End [...] Taken Blood Pressure 130/70 11/11/2017 10:58 AM [employer] Pulse 60 11/11/2017 10:58 AM [employer] Temperature 36.8 C (98.2 F) 11/11/2017 10:58 AM [employer] Respiratory Rate 20 11/11/2017 10:58 AM [employer] Oxygen Saturation 98% 11/11/2017 10:58 AM [employer] Inhaled Oxygen - - Concentration Weight - - Height 172.7 cm (5' 8") 11/09/2017 6:00 AM [employer] Body Mass Index - - Plan of Treatment Health Maintenance Due Date Last Done Comments SHINGRIX VACCINE (#1) 1990 ZOSTER VACCINE 2000 PNEUMOCOCCAL 2005 POLYSACCHARIDE VACCINE AGE 65 AND OVER PNEUMOCOCCAL-13 2005 INFLUENZA VACCINE 05/04/2018 Procedures Procedure Name Priority Date/Time Associated Diagnosis Comments POC GLUCOSE Routine 11/11/2017 Results for this 11:32 AM [employer] procedure are in the results section. POC GLUCOSE Routine 11/11/2017 Results for this 5:41 AM [employer] procedure are in the results section. POC GLUCOSE Routine 11/10/2017 Results for this 8:13 PM [employer] procedure are in the results section. POC GLUCOSE Routine 11/10/2017 Results for this 4:12 PM [employer] procedure are in the results section. POC GLUCOSE Routine 11/10/2017 Results for this 11:33 AM [employer] procedure are in the results section. POC GLUCOSE Routine 11/10/2017 Results for this 9:44 AM [employer] procedure are in the results section. POC GLUCOSE Routine 11/10/2017 Results for this 5:42 AM [employer] procedure are in the results section. POC GLUCOSE Routine 11/09/2017 Results for this 4:58 PM [employer] procedure are in the results section. POC GLUCOSE Routine 11/09/2017 Results for this 12:45 PM [employer] procedure are in the results section. POC GLUCOSE Routine 11/09/2017 Results for this 11:53 AM [employer] procedure are in the results section. XR CHEST 2 VW Routine 11/09/2017 Results for this 9:15 AM [employer] procedure are in the results section. POC GLUCOSE Routine 11/09/2017 Results for this 6:29 AM [employer] procedure are in the results section. POC GLUCOSE Routine 11/09/2017 Results for this 5:52 AM [employer] procedure are in the results section. HEPATITIS B SURFACE AB, Routine 11/09/2017 Results for this QUANTITATIVE 4:26 AM [employer] procedure are in the results section. ZZESTIMATED GFR Routine 11/09/2017 Results for this 4:16 AM [employer] procedure are in the results section. HEPATIC FUNCTION PANEL Routine 11/09/2017 Results for this 4:16 AM [employer] procedure are in the results section. BASIC METABOLIC PANEL Routine 11/09/2017 Results for this 4:16 AM [employer] procedure are in the results section. HC COMPLETE BLD COUNT Routine 11/09/2017 Results for this W/AUTO DIFF 4:16 AM [employer] procedure are in the results section. ECG 12-LEAD Routine 11/09/2017 Results for this 2:16 AM [employer] procedure are in the results section. POC GLUCOSE Routine 11/08/2017 Results for this 9:06 PM [employer] procedure are in the results section. ZZESTIMATED GFR Routine 11/08/2017 Results for this 8:00 PM [employer] procedure are in the results section. PROTHROMBIN TIME WITH INR Routine 11/08/2017 Results for this 8:00 PM [employer] procedure are in the results section. HC COMPLETE BLD COUNT Routine 11/08/2017 Results for this W/AUTO DIFF 8:00 PM [employer] procedure are in the results section. BASIC METABOLIC PANEL Routine 11/08/2017 Results for this 8:00 PM [employer] procedure are in the results section. HEPATITIS B CORE ANTIBODY Routine 11/08/2017 Results for this TOTAL 8:00 PM [employer] procedure are in the results section. HEPATITIS C ANTIBODY Routine 11/08/2017 Results for this 8:00 PM [employer] procedure are in the results section. HEPATITIS B CORE ANTIBODY Routine 11/08/2017 Results for this IGM 8:00 PM [employer] procedure are in the results section. HEPATITIS B SURFACE Routine 11/08/2017 Results for this ANTIBODY 8:00 PM [employer] procedure are in the results section. HEPATITIS B SURFACE Routine 11/08/2017 Results for this ANTIGEN 8:00 PM [employer] procedure are in the results section. HEMODIALYSIS Routine 11/08/2017 4:41 PM [employer] after 08/10/2017 Results * POC glucose (11/11/2017 11:32 AM) Only the most recent of 13 results within the time period is included. POC glucose 113 (H) 65 - 99 mg/dL [facility] DEPARTMENT OF Comment: PATHOLOGY AND Meter ID: [id number] GENOMIC MEDICINE Instrument Maintenance Supervisor: Jasbir Vincent Performing Organization Address City/State/Zipcode Phone Number [place] [address] [place] [address] PATHOLOGY AND GENOMIC MEDICINE * XR Chest [...] although the findings are probably mostly chronic [id number] Procedure Note Hm Interface, Radiology Results Incoming - 11/09/2017 9:45 AM [employer] EXAMINATION: XR CHEST 2 VW CLINICAL HISTORY: [...] although the findings are probably mostly chronic [id number] Performing Organization Address City/[facility]/Zipcode Phone Number [facility] [address] [place] [address] * Hepatitis B surface Ab, quantitative (11/09/2017 [...] Cellular and Tissue-Based Products (HCT/P). Performed by [employer], [address] [place] [address] [id number] [email or web address], [email or web address] Antoine MD - Lab. Director Specimen Serum Performing Organization Address City/[facility] Cent[facility]ode Phone Number [employer] ([place]) [facility] [address] [place] [address] * Estimated GFR (11/09/2017 4:16 AM) Only the most recent of 2 results within the time period is included. GFR Non Af Amer 20 (A) mL/min/1.73 m2 [facility] DEPARTMENT OF PATHOLOGY AND GENOMIC MEDICINE GFR Af Amer 24 (A) mL/min/1.73 m2 [facility] DEPARTMENT OF Comment: PATHOLOGY AND Chronic kidney [...] specimen Performing Organization Address City/State/Zipcode Phone Number [facility] DEPARTMENT OF [facility] [place] [address] PATHOLOGY AND GENOMIC MEDICINE * CBC with platelet and differential (11/09/2017 4:16 AM) Only the most recent of 2 results within the time period is included. WBC 6.92 4.50 - 11.00 k/uL [facility] DEPARTMENT OF PATHOLOGY AND GENOMIC MEDICINE RBC 2.95 (L) 4.20 - 5.50 m/uL [facility] DEPARTMENT OF PATHOLOGY AND GENOMIC MEDICINE HGB 9.2 (L) 12.0 - 16.0 g/dL [facility] DEPARTMENT OF PATHOLOGY AND GENOMIC MEDICINE HCT 27.8 (L) 37.0 - 47.0 % [facility] DEPARTMENT OF PATHOLOGY AND GENOMIC MEDICINE MCV 94.2 82.0 - 100.0 fL [facility] DEPARTMENT OF PATHOLOGY AND GENOMIC MEDICINE MCH 31.2 27.0 - 34.0 pg [facility] DEPARTMENT OF PATHOLOGY AND GENOMIC MEDICINE MCHC 33.1 31.0 - 37.0 g/dL [facility] DEPARTMENT OF PATHOLOGY AND GENOMIC MEDICINE RDW - SD 47.1 37.0 - 55.0 fL [facility] DEPARTMENT OF PATHOLOGY AND GENOMIC MEDICINE MPV 15.0 (H) 8.8 - 13.2 fL [facility] DEPARTMENT OF PATHOLOGY AND GENOMIC MEDICINE Platelet count 92 (L) 150 - 400 k/uL [facility] DEPARTMENT OF PATHOLOGY AND GENOMIC MEDICINE Nucleated RBC 0.00 /100 WBC [facility] DEPARTMENT OF PATHOLOGY AND GENOMIC MEDICINE Neutrophils 62.0 39.0 - 69.0 % [facility] DEPARTMENT OF PATHOLOGY AND GENOMIC MEDICINE Lymphocytes 22.4 (L) 25.0 - 45.0 % [facility] DEPARTMENT OF PATHOLOGY AND GENOMIC MEDICINE Monocytes 9.2 0.0 - 10.0 % [facility] DEPARTMENT OF PATHOLOGY AND GENOMIC MEDICINE Eosinophils 5.3 (H) 0.0 - 5.0 % [facility] DEPARTMENT OF PATHOLOGY AND GENOMIC MEDICINE Basophils 0.7 0.0 - 1.0 % [facility] DEPARTMENT OF PATHOLOGY AND GENOMIC MEDICINE Immature granulocytes 0.4Comment: "Immature 0.0 - 1.0 % [facility] DEPARTMENT OF granulocytes" (promyelocytes, PATHOLOGY AND myelocytes, metamyelocytes) [facility] Specimen Blood Performing Organization Address City/State/Zipcode Phone Number [facility] [address] [place] [address] PATHOLOGY AND GENOMIC MEDICINE * Hepatic function panel (11/09/2017 4:16 AM) Albumin 3.7 3.5 - 5.0 g/dL [facility] DEPARTMENT OF PATHOLOGY AND GENOMIC MEDICINE Total bilirubin 0.3 0.0 - 1.2 mg/dL [facility] DEPARTMENT OF PATHOLOGY AND GENOMIC MEDICINE Bilirubin direct <0.1 0.0 - 0.3 mg/dL [facility] DEPARTMENT OF PATHOLOGY AND GENOMIC MEDICINE Alkaline phosphatase 77 35 - 104 U/L [facility] DEPARTMENT OF PATHOLOGY AND GENOMIC MEDICINE Protein 6.2 (L) 6.3 - 8.3 g/dL [facility] DEPARTMENT OF Comment: PATHOLOGY AND [facility] MEDICINE 4.6-7.0 g/dL 1 week 4.4-7.6 g/dL 7 months-1year 5.1-7.3 g/dL 1-2 years5.6-7 .5 g/dL >3 years6.0-8 .0 g/dL 18-150 6.3-8.3 g/dL ALT 12 5 - 50 U/L [facility] DEPARTMENT OF PATHOLOGY AND GENOMIC MEDICINE AST 10 10 - 35 U/L [facility] DEPARTMENT OF PATHOLOGY AND GENOMIC MEDICINE Specimen Plasma specimen Performing Organization Address City/[facility] Phone Number [place] [phone] [place] [address] PATHOLOGY [facility] * Basic metabolic panel (11/09/2017 4:16 AM) Only the most recent of 2 results within the time period is included. Sodium 145 135 - 148 mEq/L [facility] DEPARTMENT OF PATHOLOGY AND GENOMIC MEDICINE Potassium 3.1 (L) 3.5 - 5.0 mEq/L [facility] DEPARTMENT OF PATHOLOGY AND GENOMIC MEDICINE Chloride 103 98 - 112 mEq/L [facility] DEPARTMENT OF PATHOLOGY AND GENOMIC MEDICINE CO2 29 24 - 31 mEq/L [facility] DEPARTMENT OF PATHOLOGY AND GENOMIC MEDICINE Anion gap 13 7 - 15 mEq/L [facility] DEPARTMENT OF Comment: PATHOLOGY AND Starting from January [facility] , anion gap calculation no longer incorporates potassium. Please note the change. BUN 30 (H) 8 - 23 mg/dL [facility] DEPARTMENT OF PATHOLOGY AND GENOMIC MEDICINE Creatinine 2.4 (H) 0.5 - 0.9 mg/dL [facility] DEPARTMENT OF PATHOLOGY AND GENOMIC MEDICINE Glucose 65 65 - 99 mg/dL [facility] DEPARTMENT OF PATHOLOGY AND GENOMIC MEDICINE Calcium 9.3 8.8 - 10.2 mg/dL [facility] DEPARTMENT OF PATHOLOGY AND GENOMIC MEDICINE Specimen Plasma specimen Performing Organization Address City/[facility]/Zipcode Phone Number [address] [place] [address] PATHOLOGY AND GENOMIC MEDICINE * ECG 12 lead (11/09/2017 2:16 AM) Ventricular rate 69 [facility] Atrial rate 69 [facility] SC interval 194 [facility] QRSD interval 154 [...] found-Right bundle branch block- Performing Organization Address [facility]/[place] [address] * Hepatitis C antibody (11/08/2017 8:00 PM) Hepatitis C Ab Nonreactive Non-reactive [facility] DEPARTMENT OF PATHOLOGY AND GENOMIC MEDICINE Specimen Blood Performing Organization Address [facility] Centercode Phone Number [address] [place] [address] PATHOLOGY AND [facility] MEDICINE * Hepatitis B core antibody IgM (11/08/2017 8:00 PM) Hepatitis B core IgM Nonreactive Non-reactive [facility] DEPARTMENT PATHOLOGY AND [facility] Specimen Blood Performing Organization Address [facility] Cent[facility]ode Phone Number [address] [place] [address] PATHOLOGY AND [facility] MEDICINE * Hepatitis B core antibody total (11/08/2017 8:00 PM) Hepatitis B core total Ab Non-reactive Non-reactive [facility] DEPARTMENT OF PATHOLOGY AND GENOMIC MEDICINE Specimen Blood Performing Organization Address City/[facility]/[place] [address] PATHOLOGY AND [facility] MEDICINE * Hepatitis B surface antibody (11/08/2017 8:00 PM) Hepatitis B surface Ab Nonreactive Non-reactive [facility] DEPARTMENT OF PATHOLOGY AND GENOMIC MEDICINE Specimen Blood Performing Organization Address City/[facility]/Zipcode Phone Number [address] [place] [address] PATHOLOGY AND GENOMIC MEDICINE * Hepatitis B surface antigen (11/08/2017 8:00 PM) Hepatitis B surface Ag Nonreactive Non-reactive [facility] DEPARTMENT OF PATHOLOGY AND GENOMIC MEDICINE Specimen Blood Performing Organization Address City/[facility]/Zipcode Phone Number [facility] DEPARTMENT OF [address] [place] [address] [place] [address] PATHOLOGY AND GENOMIC MEDICINE * Prothrombin time with INR (11/08/2017 8:00 PM) Prothrombin time 14.5 12.0 - 15.0 sec [facility] DEPARTMENT OF PATHOLOGY AND GENOMIC MEDICINE INR 1.1 [facility] DEPARTMENT OF Comment: PATHOLOGY AND The International Normalized GENOMIC MEDICINE Ratio (INR) is a therapeutic monitoring tool for patients who are stable on oral anticoagulant therapy. An INR of 2.0-3.0 is suggested for deep vein thrombosis/pulmonary embolism. Specimen Blood Performing Organization Address [facility] [place] [facility] Centercoco Phone Number [facility] DEPARTMENT [address] [place] [address] PATHOLOGY AND GENOMIC MEDICINE after 08/10/2017 Insurance Payer Benefit Subscriber ID Type Phone Address Plan / Group [facility] MEDICARE UNITED/CAR xxxxxxxxx HMO E CORINNA HULL
[2018-08-11] MEDS ORDERED: LISINOPRIL40 MG PO (15:53)
[2018-08-11] MEDS ORDERED: RENVELA800 MG PO (15:53)
[2018-08-11] MEDS ORDERED: PRAVASTATIN SOD20 MG PO (15:53)
[2018-08-11] MEDS ORDERED: VITAMIN E400 UNI1 (15:53)
[2018-08-11] MEDS ORDERED: CARVEDILOL25 MG PO (15:53)
[2018-08-11] MEDS ORDERED: ASPIRIN EC81 MG PO (15:53)
[2018-08-11] MEDS ORDERED: DIPHENHYDRAMINE25 M1 (15:53)
[2018-08-11] MEDS ORDERED: FERROUS SULFAT325 MG (15:53)
[2018-08-11] MEDS ORDERED: VITAMIN D1000 UNI1 PO (15:53)
[2018-08-11] MEDS ORDERED: DONEPEZIL HCL10 MG PO (15:53)
[2018-08-11] MEDS ORDERED: FULL SPECTRUM0.8 MG PO (15:53)
[2018-08-11] MEDS ORDERED: HYDROCHLOROTH12.5 MG PO (15:53)
[2018-08-11] MEDS: HYDROMORPHONE 2MG/ML 2 MG/ML ML IV PRN ×2 (16:15→23:06)
[2018-08-11] MEDS: ONDANSETRON HCL INJ 2 MG/ML VIAL IV PRN ×2 (16:18→23:06)
[2018-08-11] MEDS: INSULIN REGULAR, HUMAN 100 UNIT/1 ML 3ML VIAL SQ SCH ×2 (16:30→21:30)
[2018-08-11 17:36] VITALS: BP 140/72
[2018-08-11 18:13] VITALS: BP 140/72
[2018-08-11] MEDS: EPOETIN ALFA 10000 UNIT/ML VIAL SC SCH (18:30)
--- NOTE | 2018-08-11 19:17 | Consultation ---
DATE OF CONSULTATION: August 11, 2018 REASON FOR CONSULTATION: End-stage renal disease. HISTORY OF PRESENT ILLNESS: The patient is a very pleasant, 78-year-old female with past medical history of diabetes type 2, diabetic neuropathy, hypertension, end-stage renal disease on hemodialysis Wednesday, , Wednesday. She was admitted after a fall and found to have left hip fracture. The patient missed dialysis Wednesday and today. Her last dialysis was Wednesday. Per the patient, she had her birthday on Wednesday and that is why she did not want to go, and this morning she fell while she was trying to sit in a chair, and then felt lightheaded and fell on the floor and started having severe left hip pain. The patient was found to have left hip fracture, and was seen by orthopedics already. Surgery has been planned, but no date yet. PAST MEDICAL HISTORY: As above. PAST SURGICAL HISTORY: Left upper extremity with fistula creation. ALLERGIES: ETODOLAC AND CODEINE. MEDICATIONS: As per MAR. REVIEW OF SYSTEMS: Pertinent positive as per HPI. PHYSICAL EXAMINATION VITAL SIGNS: Blood pressure 140/72, pulse 75, respirations 16, temperature 97.1, pulse oximetry 95% on room air. GENERAL: Awake, alert and oriented times 3. Very pleasant. Not in apparent distress. HEENT: PERRLA. Extraocular muscles intact. NECK: No JVD. HEART: S1 and S2. LUNGS: Clear to auscultation bilaterally. ABDOMEN: Soft. Bowel sounds positive. EXTREMITIES: No edema. NEUROLOGICAL: No focal deficits. LABORATORY DATA: Sodium 137, potassium 4.5, chloride 101, CO2 of 20, BUN 87, creatinine 7.1, glucose 134. White cell count is 15. Hemoglobin 9.9, platelet count 109,000. INR 1.05. ASSESSMENT AND PLAN: 1. End-stage renal disease. Will do hemodialysis tonight and then back on her schedule on Wednesday. 2. Hypertension, controlled. Continue with the home medications. 3. Diabetes type 2 per primary care. 4. Left hip fracture. The patient is cleared from nephrology point of view. 5. Surgery. Orthopedics is on the case. 6. Anemia of chronic kidney disease. Start the patient on luann 7. I discussed with the at bedside. I want to thank Dr. Hathaway for the consult. Job#: [id number] GH MTDD
[2018-08-11 20:00] VITALS: BP 177/78
[2018-08-12] VITALS: BP 135/58
[2018-08-12 04:00] VITALS: BP 163/74
[2018-08-12 06:03] LABS: BASOPHILS % 0.4 % (0.0-1.0); EOSINOPHILS # (AUTO) 0.1 (0.0-0.4); EOSINOPHILS % 0.6 % (0.0-6.0); HEMATOCRIT 27.8 % (34.2-44.1); HEMOGLOBIN 9.4 g/dL (12.0-16.0); LYMPHOCYTES # (AUTO) 0.7 (1.0-3.2); LYMPHOCYTES % 8.5 % (18.0-39.1); MEAN CORPUSCULAR HEMOGLOBIN 32.8 pg (28-32); MEAN CORPUSCULAR HGB CONC 33.8 g/dL (31-35); MEAN CORPUSCULAR VOLUME 96.9 fL (81-99); MONOCYTES # (AUTO) 0.4 (0.2-0.8); MONOCYTES % 4.6 % (4.4-11.3); NEUTROPHILS # (AUTO) 7.3 (2.1-6.9); NEUTROPHILS % 85.5 % (38.7-80.0); PLATELET COUNT 101 x10e3/uL (140-360); RED BLOOD COUNT 2.87 x10e6/uL (3.6-5.1); RED CELL DISTRIBUTION WIDTH 14.1 % (11.7-14.4)
[2018-08-12 06:14] LABS: ANION GAP 16.9 mmol/L (8-16); CALCIUM 9.4 mg/dL (8.4-10.2); CREATININE, SERUM 4.08 mg/dL (0.57-1.11); POTASSIUM 3.9 mmol/L (3.5-5.1)
[2018-08-12] MEDS: INSULIN REGULAR, HUMAN 100 UNIT/1 ML 3ML VIAL SQ SCH ×4 (07:30→21:00)
[2018-08-12 09:11] LABS: CHOL/HDL RATIO 3.1 (3.0-3.6)
[2018-08-12] MEDS: ONDANSETRON HCL INJ 2 MG/ML VIAL IV PRN ×3 (09:20→20:30)
[2018-08-12 10:06] VITALS: BP 151/67
[2018-08-12] MEDS: HYDROMORPHONE 2MG/ML 2 MG/ML ML IV PRN ×2 (10:30→20:30)
[2018-08-12] MEDS: HYDROCHLOROTHIAZIDE 25 MG TAB PO SCH (10:36)
[2018-08-12] MEDS: FOLIC ACID/CYANOCOB/PYRIDOXINE TAB PO SCH (10:37)
[2018-08-12] MEDS: FERROUS SULFATE 325 MG TAB PO SCH ×2 (10:37→17:25)
[2018-08-12] MEDS: SEVELAMER CARBONATE 800 MG TAB PO SCH ×2 (12:00→17:25)
[2018-08-12] MEDS ORDERED: PROMETHAZINE 12.5MG/ NACL 0.9% 12.5 MG/50 ML BAG IV PRN (12:30)
--- NOTE | 2018-08-12 13:06 | History and Physical ---
PRIMARY CARE PHYSICIAN: Dr. Chris Hartmann. [employer] ESTATE INTERNSHIP: Dr. Shepard. CHIEF COMPLAINT: Fall with hip pain. HISTORY OF PRESENT ILLNESS: This is a 78-year-old woman with a history of end-stage renal disease, who had missed dialysis 1 or 2 sessions. Patient tripped at home while walking in living room with trauma to her hip, brought to the hospital, found to have left hip fracture. She was admitted for further evaluation and management. PAST MEDICAL HISTORY: Parathyroid disease; end-stage renal disease, on hemodialysis Wednesday, and Wednesday; hypertension; diabetes mellitus type 2; diabetic neuropathy. PAST SURGICAL HISTORY: Left upper extremity fistula, cataract surgery, parathyroidectomy, hip replacement, and knee replacement. ALLERGIES: PER ELECTRONIC MEDICAL RECORD. FAMILY AND SOCIAL HISTORY: Patient is . She has 2 children. No alcohol, illicits, or cigarettes. MEDICATIONS: Per electronic medical record. REVIEW OF SYSTEMS: Denies any fever, chills, sweats, nausea, vomiting, diarrhea, headache, chest pain, back pain, or vision changes. PHYSICAL EXAMINATION VITAL SIGNS: Have been reviewed. GENERAL: A tired-appearing woman, resting in bed. HEENT: Anicteric. Pupils respond to light. No oral lesions. CARDIOVASCULAR: Normal S1 and S2. LUNGS: Bilateral breath sounds. ABDOMEN: Soft, nontender, nondistended. EXTREMITIES: Left arm fistula is present. Left leg is in traction. SKIN: Dry. PSYCHIATRIC: Flat affect. NEUROLOGIC: Alert and oriented x3. Moving all extremities. LABS: Reviewed. MEDICATIONS: Reviewed. ASSESSMENT: A 78-year-old woman. 1. Acute left hip fracture. 2. Elderly fall with hip fracture. 3. End-stage renal disease, on hemodialysis. 4. Diabetic nephropathy with end-stage renal disease. 5. Diabetic neuropathy. 6. Pulmonary edema. 7. Anemia of chronic disease. 8. Dementia. 9. Hypertension. 10. Hyperlipidemia. PLAN 1. Orthopedic consultation. 2. May need cardiology preoperative evaluation. 3. Nephrology consultation for dialysis. 4. Attempt to remove some fluid by dialysis as patient does have pulmonary edema. 5. Blood pressure control and diabetes control. 1. Obtain hemoglobin A1c and lipid panel. 2. Diabetic diet today. 3. Lovenox if surgery is postponed. 4. Prophylaxis, Lovenox and Pepcid. 5. Disposition, cardiology preoperative evaluation. Job#: [id number] SHARON
--- NOTE | 2018-08-12 14:35 | Consultation ---
DATE OF CONSULTATION: CARDIOLOGY CONSULTATION REQUESTING PHYSICIAN: Juan Pablo Hathaway MD REASON FOR CONSULTATION: Preop clearance. HISTORY OF PRESENT ILLNESS: Ms. Joy is a 78-year-old lady with past medical history as listed below. Reportedly went to sit on a chair yesterday, and she fell down. She was brought to the hospital and was noted to have a left hip fracture. The patient is scheduled to undergo surgery. Denies any chest pain, shortness of breath or palpitations. Denies any loss of consciousness. REVIEW OF SYMPTOMS CONSTITUTIONAL: Has some fatigue and weakness. HEENT: No headache, blurring of vision, seizures or syncope. CARDIOVASCULAR: No chest pain, dyspnea, orthopnea or PND. RESPIRATORY: No cough, fever or expectoration. GI: No abdominal pain, vomiting or diarrhea. : No dysuria, frequency, incontinence. ALLERGIES: SEE LIST. ETODOLAC AND CODEINE. MEDICATIONS: See list. PAST MEDICAL HISTORY 1. History of hypertension. 2. History of diabetes mellitus. 3. History of end-stage renal disease on dialysis 3 times a week. Apparently had dialysis yesterday. PAST SURGICAL HISTORY: History of left upper extremity fistula. SOCIAL HISTORY: Does not smoke or drink. FAMILY HISTORY: Noncontributory. PHYSICAL EXAMINATION GENERAL: A moderately built and nourished lady. Awake, alert, not in any obvious distress. VITALS: Heart rate is 72. Blood pressure 151/67. Respirations 16. Temperature 99.2. HEENT: Atraumatic. NECK: No JVD, bruit, thyromegaly, lymphadenopathy. CHEST: Decreased air entry at the bases. No adventitious sounds appreciated. CARDIOVASCULAR: First and second heart sounds heard. No murmurs, rubs or gallops appreciated. ABDOMEN: Soft, nontender. EXTREMITIES: No edema. LABS: EKG showed sinus rhythm at 75 beats per minute, right bundle branch block and secondary ST-T changes. WBC 8.5, hemoglobin 9.4, hematocrit 27.8, platelets 101. Sodium is 140, potassium 3.9, chloride 102, bicarb 25, BUN 36, creatinine 4.0. Triglycerides 103, cholesterol 144, LDL 77, HDL 46. Chest x-ray shows mild cardiomegaly without pulmonary edema. IMPRESSION 1. Left hip fracture. 2. End-stage renal disease on hemodialysis. 3. Hypertension. 4. Diabetes mellitus. 5. Anemia. PLAN 1. Patient is essentially asymptomatic from cardiac point of view. She is not in CHF. There is no significant cardiac history other than hypertension. 2. She is otherwise hemodynamically stable. Patient can proceed with surgery from cardiac point of view. 3. I discussed my impression and plan of management with the patient, and she understands. As always, I appreciate and thank you very much for your referrals. Job#: [id number]
[2018-08-12 14:53] VITALS: BP 194/91
[2018-08-12 16:15] VITALS: BP 141/79
[2018-08-12] MEDS: ENOXAPARIN SOD INJ 40 MG/0.4 ML SYR SC SCH (17:25)
[2018-08-12 20:00] VITALS: BP 157/70
[2018-08-12] MEDS: DONEPEZIL HCL 5 MG TAB PO SCH (20:30)
[2018-08-12] MEDS: PRAVASTATIN 20 MG TAB PO SCH (20:30)
[2018-08-13] VITALS: BP 149/67
[2018-08-13 04:00] VITALS: BP 148/67
[2018-08-13] MEDS ORDERED: CEFAZOLIN SOD 2 GM in WATER STERILE 10ML VIAL 10 ML IV SCH (05:00)
[2018-08-13 07:24] LABS: ALBUMIN 3.2 g/dL (3.5-5.0); ANION GAP 18.1 mmol/L (8-16); CALCIUM 9.3 mg/dL (8.4-10.2); CREATININE, SERUM 5.23 mg/dL (0.57-1.11); POTASSIUM 4.1 mmol/L (3.5-5.1)
[2018-08-13] MEDS: INSULIN REGULAR, HUMAN 100 UNIT/1 ML 3ML VIAL SQ SCH ×4 (07:30→21:35)
[2018-08-13 08:10] VITALS: BP 169/74
[2018-08-13] MEDS: LISINOPRIL 20 MG TAB PO SCH (09:00)
[2018-08-13] MEDS: SEVELAMER CARBONATE 800 MG TAB PO SCH ×3 (09:00→16:25)
[2018-08-13] MEDS: METOPROLOL TARTRATE 25 MG TAB PO SCH ×2 (09:00→16:24)
[2018-08-13] MEDS: HYDROCHLOROTHIAZIDE 25 MG TAB PO SCH (09:00)
[2018-08-13] MEDS: SODIUM CHLORIDE 0.9% 1000ML 1,000 ML IV SCH ×2 (10:00)
[2018-08-13] MEDS: FERROUS SULFATE 325 MG TAB PO SCH ×2 (10:00→16:24)
[2018-08-13] MEDS: FOLIC ACID/CYANOCOB/PYRIDOXINE TAB PO SCH (10:00)
[2018-08-13] MEDS ORDERED: SODIUM CHLORIDE 0.9% 1000ML 2,000 ML IV PRN (10:15)
[2018-08-13] MEDS ORDERED: EPOETIN ALFA 10000 UNIT/ML VIAL SC PRN (10:15)
[2018-08-13] MEDS: ENOXAPARIN SOD INJ 40 MG/0.4 ML SYR SC SCH (10:27)
[2018-08-13 13:44] VITALS: BP 136/69
[2018-08-13 16:22] VITALS: BP 158/71
[2018-08-13] MEDS: EPOETIN ALFA 10000 UNIT/ML VIAL SC SCH (16:29)
[2018-08-13 20:00] VITALS: BP 140/67
[2018-08-13] MEDS: PRAVASTATIN 20 MG TAB PO SCH (21:34)
[2018-08-13] MEDS: DONEPEZIL HCL 5 MG TAB PO SCH (21:34)
[2018-08-14] VITALS: BP 142/66
[2018-08-14 04:00] VITALS: BP 155/68
[2018-08-14] MEDS: ONDANSETRON HCL INJ 2 MG/ML VIAL IV PRN ×2 (04:30→18:05)
[2018-08-14 05:55] LABS: BASOPHILS % 0.4 % (0.0-1.0); EOSINOPHILS # (AUTO) 0.3 (0.0-0.4); EOSINOPHILS % 2.7 % (0.0-6.0); HEMATOCRIT 28.5 % (34.2-44.1); HEMOGLOBIN 9.4 g/dL (12.0-16.0); LYMPHOCYTES # (AUTO) 1.3 (1.0-3.2); LYMPHOCYTES % 11.9 % (18.0-39.1); MEAN CORPUSCULAR HEMOGLOBIN 33.6 pg (28-32); MEAN CORPUSCULAR VOLUME 101.8 fL (81-99); MONOCYTES % 9.7 % (4.4-11.3); NEUTROPHILS # (AUTO) 7.9 (2.1-6.9); NEUTROPHILS % 74.6 % (38.7-80.0); PLATELET COUNT 114 x10e3/uL (140-360); RED CELL DISTRIBUTION WIDTH 14.3 % (11.7-14.4)
[2018-08-14] MEDS ORDERED: BACITRACIN 50,000 UNIT VIAL ONE (06:49)
[2018-08-14] MEDS: INSULIN REGULAR, HUMAN 100 UNIT/1 ML 3ML VIAL SQ SCH ×4 (07:30→22:38)
[2018-08-14] MEDS ORDERED: CEFAZOLIN SOD 2 GM/D5W 50ML 50 ML IV ONE (07:47)
[2018-08-14 07:56] LABS: ANION GAP 15.9 mmol/L (8-16); CALCIUM 9.5 mg/dL (8.4-10.2); CREATININE, SERUM 4.62 mg/dL (0.57-1.11); POTASSIUM 3.9 mmol/L (3.5-5.1)
[2018-08-14] MEDS: SEVELAMER CARBONATE 800 MG TAB PO SCH ×3 (08:00→16:23)
[2018-08-14] MEDS: HYDROCHLOROTHIAZIDE 25 MG TAB PO SCH (08:18)
[2018-08-14] MEDS: LISINOPRIL 20 MG TAB PO SCH (08:18)
[2018-08-14] MEDS: FOLIC ACID/CYANOCOB/PYRIDOXINE TAB PO SCH (08:18)
[2018-08-14] MEDS: METOPROLOL TARTRATE 25 MG TAB PO SCH ×2 (08:18→16:23)
[2018-08-14] MEDS: FERROUS SULFATE 325 MG TAB PO SCH ×2 (08:18→16:22)
[2018-08-14] MEDS ORDERED: ONDANSETRON HCL INJ 2 MG/ML VIAL IV PRN (10:00)
[2018-08-14] MEDS ORDERED: HYDROMORPHONE 0.2MG/ML-SOD CHL 30ML PCA SYRINGE IV PRN (10:00)
[2018-08-14] MEDS ORDERED: NALOXONE HCL INJ 0.4 MG/ML AMP IV PRN (10:00)
[2018-08-14 10:28] VITALS: BP 143/67
[2018-08-14] MEDS: SODIUM CHLORIDE 0.9% 1000ML 1,000 ML IV SCH ×4 (10:30→21:47)
[2018-08-14] MEDS ORDERED: ONDANSETRON HCL INJ 2 MG/ML VIAL ONE (10:33)
[2018-08-14] MEDS ORDERED: HYDROMORPHONE 0.2MG/ML-SOD CHL 30ML PCA SYRINGE IV ONE (10:43)
--- NOTE | 2018-08-14 11:08 | Diagnostic Imaging Report ---
HIP LEFT 2-3 VW (+/- PELVIS) - 2 views HISTORY: Pain COMPARISON: 08/11/2018 FINDINGS: Limited by body habitus. Interval intramedullary disha and screw fixation of left femoral intertrochanteric fracture. Hardware is intact. Mild postsurgical soft tissue emphysema, swelling, and skin erin. Severe degenerative changes of the left hip. Again seen right hip arthroplasty. Intact hardware. IMPRESSION: Interval intramedullary disha and screw fixation of left femoral intertrochanteric fracture. Hardware is intact. Mild postsurgical soft tissue emphysema, swelling, and skin erin. Signed by: Dr. Kamlesh Parish MD on 08/14/2018 11:05 AM
--- NOTE | 2018-08-14 11:09 | Diagnostic Imaging Report ---
FEMUR ONE VIEW LEFT - 1 view HISTORY: Pain COMPARISON: 08/11/2018 FINDINGS: See impression. IMPRESSION: Interval intramedullary disha and screw fixation of left femoral intertrochanteric fracture. Hardware is intact. Mild postsurgical soft tissue emphysema, swelling, and skin erin. Signed by: Dr. Kamlesh Parish MD on 08/14/2018 11:06 AM
[2018-08-14] MEDS: CEFAZOLIN SOD 1 GM/D5W 50ML 50 ML IV SCH ×2 (13:09→22:20)
[2018-08-14 13:52] VITALS: BP 155/70
[2018-08-14] MEDS: ENOXAPARIN SOD INJ 40 MG/0.4 ML SYR SC SCH (16:23)
[2018-08-14 17:11] VITALS: BP 150/66
[2018-08-14 20:00] VITALS: BP 131/66
[2018-08-14] MEDS: DONEPEZIL HCL 5 MG TAB PO SCH (21:47)
[2018-08-14] MEDS: PRAVASTATIN 20 MG TAB PO SCH (21:47)
[2018-08-15] VITALS (8 sets, daily range): BP systolic 124–152; BP diastolic 60–68
[2018-08-15] MEDS: CEFAZOLIN SOD 1 GM/D5W 50ML 50 ML IV SCH (06:20)
[2018-08-15] MEDS: SODIUM CHLORIDE 0.9% 1000ML 1,000 ML IV SCH ×3 (06:30→16:30)
[2018-08-15 06:34] LABS: CALCIUM 8.9 mg/dL (8.4-10.2); CREATININE, SERUM 5.51 mg/dL (0.57-1.11)
[2018-08-15 07:18] LABS: BASOPHILS % 0.2 % (0.0-1.0); EOSINOPHILS # (AUTO) 0.4 (0.0-0.4); EOSINOPHILS % 3.4 % (0.0-6.0); HEMATOCRIT 23.5 % (34.2-44.1); HEMOGLOBIN 7.6 g/dL (12.0-16.0); LYMPHOCYTES # (AUTO) 0.9 (1.0-3.2); LYMPHOCYTES % 8.1 % (18.0-39.1); MEAN CORPUSCULAR HGB CONC 32.3 g/dL (31-35); MEAN CORPUSCULAR VOLUME 102.2 fL (81-99); MONOCYTES # (AUTO) 0.8 (0.2-0.8); MONOCYTES % 7.5 % (4.4-11.3); NEUTROPHILS # (AUTO) 8.9 (2.1-6.9); NEUTROPHILS % 80.1 % (38.7-80.0); PLATELET COUNT 95 x10e3/uL (140-360); RED CELL DISTRIBUTION WIDTH 14.6 % (11.7-14.4)
[2018-08-15] MEDS: INSULIN REGULAR, HUMAN 100 UNIT/1 ML 3ML VIAL SQ SCH ×4 (08:30→21:26)
[2018-08-15] MEDS: SEVELAMER CARBONATE 800 MG TAB PO SCH ×3 (09:16→18:00)
[2018-08-15] MEDS: FERROUS SULFATE 325 MG TAB PO SCH ×2 (09:16→18:00)
[2018-08-15] MEDS: HYDROCHLOROTHIAZIDE 25 MG TAB PO SCH (09:16)
[2018-08-15] MEDS: METOPROLOL TARTRATE 25 MG TAB PO SCH ×2 (09:16→16:56)
[2018-08-15] MEDS: LISINOPRIL 20 MG TAB PO SCH (09:16)
[2018-08-15] MEDS: FOLIC ACID/CYANOCOB/PYRIDOXINE TAB PO SCH (09:16)
[2018-08-15] MEDS: ACETAMINOPHEN 1000 MG/100 ML IV PRN ×2 (09:16→16:56)
[2018-08-15] MEDS ORDERED: SODIUM CHLORIDE 0.9% 250ML 250 ML IV ONE (09:45)
[2018-08-15] MEDS ORDERED: KETAMINE HCL INJ 50 MG/ML 10 ML VIAL ONE (14:47)
[2018-08-15] MEDS ORDERED: FENTANYL CITRATE/PF 100MCG/2 ML INJ ONE (14:47)
[2018-08-15] MEDS ORDERED: MORPHINE SULFATE INJ 10 MG/ML ONE (14:47)
[2018-08-15] MEDS ORDERED: LIDOCAINE HCL 2% LOCAL INJ 5 ML SDV VIAL INJ ONE (14:51)
[2018-08-15] MEDS ORDERED: ONDANSETRON HCL INJ 2 MG/ML VIAL ONE (14:51)
[2018-08-15] MEDS ORDERED: PROPOFOL IV EMULSION 10 MG/ML 20 ML VIAL ONE (14:51)
[2018-08-15] MEDS ORDERED: DESFLURANE 240 ML BTL INH ONE (14:51)
[2018-08-15] MEDS ORDERED: ETOMIDATE 2 MG/ML 10 ML INJ IV ONE (14:51)
[2018-08-15] MEDS ORDERED: ACETAMINOPHEN 1000 MG/100 ML IV ONE (14:51)
[2018-08-15] MEDS ORDERED: SODIUM CHLORIDE 0.9% 250ML 250 ML ONE (15:56)
[2018-08-15] MEDS: RIVAROXABAN 10 MG TABLET PO SCH (18:00)
[2018-08-15 20:56] LABS: HEMATOCRIT 27.9 % (34.2-44.1); HEMOGLOBIN 9.4 g/dL (12.0-16.0)
[2018-08-15] MEDS: PRAVASTATIN 20 MG TAB PO SCH (21:26)
[2018-08-15] MEDS: DONEPEZIL HCL 5 MG TAB PO SCH (21:26)
[2018-08-16] VITALS (7 sets, daily range): BP systolic 123–177; BP diastolic 60–84
[2018-08-16] MEDS: TRAMADOL/APAP 37.5MG-325MG TAB PO PRN ×2 (00:05→17:50)
[2018-08-16] MEDS: SODIUM CHLORIDE 0.9% 1000ML 1,000 ML IV SCH (02:30)
[2018-08-16 05:53] LABS: HEMOGLOBIN 9.4 g/dL (12.0-16.0)
[2018-08-16] MEDS: INSULIN REGULAR, HUMAN 100 UNIT/1 ML 3ML VIAL SQ SCH ×4 (07:30→22:12)
[2018-08-16] MEDS: SEVELAMER CARBONATE 800 MG TAB PO SCH ×3 (08:00→17:50)
[2018-08-16] MEDS: LISINOPRIL 20 MG TAB PO SCH (09:00)
[2018-08-16] MEDS: HYDROCHLOROTHIAZIDE 25 MG TAB PO SCH (09:00)
[2018-08-16] MEDS: METOPROLOL TARTRATE 25 MG TAB PO SCH ×2 (09:00→17:50)
[2018-08-16] MEDS: FERROUS SULFATE 325 MG TAB PO SCH ×2 (13:32→17:50)
[2018-08-16] MEDS: DOCUSATE SODIUM 100 MG CAP PO SCH ×3 (13:32→22:10)
[2018-08-16] MEDS: FOLIC ACID/CYANOCOB/PYRIDOXINE TAB PO SCH (13:32)
[2018-08-16] MEDS: SENNOSIDES 8.6 MG TAB PO SCH ×3 (13:37→22:10)
[2018-08-16] MEDS: RIVAROXABAN 10 MG TABLET PO SCH (17:50)
[2018-08-16] MEDS: EPOETIN ALFA 10000 UNIT/ML VIAL SC SCH (17:50)
--- NOTE | 2018-08-16 18:06 | Operative Report ---
DATE OF PROCEDURE: August 14, 2018 PREOPERATIVE DIAGNOSIS: Left intertrochanteric hip fracture. POSTOPERATIVE DIAGNOSIS: Left intertrochanteric hip fracture. PROCEDURE PERFORMED: Closed reduction of the left intertrochanteric hip fracture followed by a left gamma nail. GAS STATION MANAGER: None. ANESTHESIA: General endotracheal intubation anesthesia. IV FLUIDS: Per the anesthesia record. BRIEF DESCRIPTION OF THE PATIENT'S OPERATIVE PROCEDURE: Ms. Joy was taken to the operating room and placed in supine position on the fracture table. Following the induction of general anesthesia as well as endotracheal intubation, the patient's left lower extremity was placed in well-padded longitudinal traction and the right lower extremity was placed in well-padded lithotomy position. Fluoroscopic evaluation of the hip joint demonstrated displaced intertrochanteric hip fracture on the left. Traction was applied to the left lower extremity and the leg was manipulated and a repeat fluoroscopy demonstrated acceptable reduction of the injury. The patient's thigh and flank were then prepped and draped in standard surgical fashion. The case was begun by creating incision roughly at the level of the greater trochanter. This incision was carried through the skin only. Blunt dissection was used to deepen incision to the level of the greater trochanter. A cannulated awl was placed on the tip of the trochanter and advanced within the femur. A guidewire was advanced within the medullary canal of the femur. Position of the guidewire was confirmed using fluoroscopy in both the AP and lateral planes. Sequential reaming was undertaken. Measurements were taken and appropriate sized nail was chosen. The nail was inserted in the medullary canal without difficulty. A 2nd incision was carried somewhat more distally down the lateral aspect of the thigh. Dissection was carried to the lateral aspect of the femur. The guide to the compression screw was advanced into the lateral aspect of the femur and the guide pin was advanced from lateral to medial through the neck and into the head of the femur. The position of the guide pin was again checked using fluoroscopy in both AP and lateral planes. Measurements were taken and a reamer was used to create a channel for the implant. The compression screw was then advanced through the neck into the head of the femur and compression was placed across patient's fracture site. The nail was visualized proximally in both the AP and lateral planes and reduction was found to be appropriate. The nail was then locked distally with 2 screws using a free-hand technique. All wounds were copiously irrigated. The nail was visualized in it entirety and found to be in appropriate position and the fracture was found to be reduced. All wounds were then closed in a multilayer fashion. Sterile dressings were applied. The patient was then awakened and taken to post anesthesia care unit in stable condition. Job#: [id number] NEGRITO
[2018-08-16] MEDS: DONEPEZIL HCL 5 MG TAB PO SCH (22:10)
[2018-08-16] MEDS: PRAVASTATIN 20 MG TAB PO SCH (22:10)
[2018-08-16] MEDS: INSULIN DETEMIR 100 UNIT/ML PEN SQ SCH (22:11)
[2018-08-17] VITALS (7 sets, daily range): BP systolic 130–161; BP diastolic 65–74
[2018-08-17] MEDS: INSULIN DETEMIR 100 UNIT/ML PEN SQ SCH ×2 (07:30→20:20)
[2018-08-17] MEDS: INSULIN REGULAR, HUMAN 100 UNIT/1 ML 3ML VIAL SQ SCH ×4 (07:30→20:20)
[2018-08-17 08:08] LABS: BASOPHILS # (AUTO) 0.1 (0.0-0.1); BASOPHILS % 0.5 % (0.0-1.0); EOSINOPHILS # (AUTO) 0.5 (0.0-0.4); EOSINOPHILS % 4.1 % (0.0-6.0); HEMATOCRIT 29.1 % (34.2-44.1); HEMOGLOBIN 9.7 g/dL (12.0-16.0); LYMPHOCYTES # (AUTO) 1.1 (1.0-3.2); LYMPHOCYTES % 10.1 % (18.0-39.1); MEAN CORPUSCULAR HEMOGLOBIN 32.9 pg (28-32); MEAN CORPUSCULAR HGB CONC 33.3 g/dL (31-35); MEAN CORPUSCULAR VOLUME 98.6 fL (81-99); NEUTROPHILS # (AUTO) 8.2 (2.1-6.9); NEUTROPHILS % 75.5 % (38.7-80.0); PLATELET COUNT 110 x10e3/uL (140-360); RED BLOOD COUNT 2.95 x10e6/uL (3.6-5.1); RED CELL DISTRIBUTION WIDTH 16.1 % (11.7-14.4)
[2018-08-17] MEDS: SEVELAMER CARBONATE 800 MG TAB PO SCH ×3 (09:07→17:31)
[2018-08-17] MEDS: HYDROCHLOROTHIAZIDE 25 MG TAB PO SCH (09:28)
[2018-08-17] MEDS: DOCUSATE SODIUM 100 MG CAP PO SCH ×2 (09:28→20:20)
[2018-08-17] MEDS: FERROUS SULFATE 325 MG TAB PO SCH ×2 (09:28→17:30)
[2018-08-17] MEDS: LISINOPRIL 20 MG TAB PO SCH (09:29)
[2018-08-17] MEDS: CEPHALEXIN 500 MG CAP PO SCH ×2 (09:29→20:22)
[2018-08-17] MEDS: SENNOSIDES 8.6 MG TAB PO SCH ×2 (09:29→20:20)
[2018-08-17] MEDS: METOPROLOL TARTRATE 25 MG TAB PO SCH ×2 (09:29→17:31)
[2018-08-17] MEDS: FOLIC ACID/CYANOCOB/PYRIDOXINE TAB PO SCH (09:29)
[2018-08-17] MEDS: TRAMADOL/APAP 37.5MG-325MG TAB PO PRN (15:31)
[2018-08-17] MEDS: RIVAROXABAN 10 MG TABLET PO SCH (17:31)
[2018-08-17] MEDS: PRAVASTATIN 20 MG TAB PO SCH (20:20)
[2018-08-17] MEDS: DONEPEZIL HCL 5 MG TAB PO SCH (20:20)
[2018-08-18] VITALS (7 sets, daily range): BP systolic 129–174; BP diastolic 61–80
[2018-08-18] MEDS: TRAMADOL/APAP 37.5MG-325MG TAB PO PRN (06:00)
[2018-08-18] MEDS: INSULIN DETEMIR 100 UNIT/ML PEN SQ SCH ×2 (07:30→21:15)
[2018-08-18] MEDS: INSULIN REGULAR, HUMAN 100 UNIT/1 ML 3ML VIAL SQ SCH ×4 (07:30→21:15)
[2018-08-18] MEDS: CEPHALEXIN 500 MG CAP PO SCH ×2 (09:04→20:40)
[2018-08-18] MEDS: METOPROLOL TARTRATE 25 MG TAB PO SCH ×2 (09:04→19:04)
[2018-08-18] MEDS: FERROUS SULFATE 325 MG TAB PO SCH ×2 (09:04→19:04)
[2018-08-18] MEDS: SEVELAMER CARBONATE 800 MG TAB PO SCH ×3 (09:04→19:04)
[2018-08-18] MEDS: HYDROCHLOROTHIAZIDE 25 MG TAB PO SCH (09:04)
[2018-08-18] MEDS: DOCUSATE SODIUM 100 MG CAP PO SCH ×2 (09:04→20:42)
[2018-08-18] MEDS: SENNOSIDES 8.6 MG TAB PO SCH ×2 (09:05→20:40)
[2018-08-18] MEDS: LISINOPRIL 20 MG TAB PO SCH (09:05)
[2018-08-18] MEDS: NIFEDIPINE CR 30 MG TAB PO SCH (09:05)
[2018-08-18] MEDS: FOLIC ACID/CYANOCOB/PYRIDOXINE TAB PO SCH (09:05)
[2018-08-18] MEDS ORDERED: SODIUM CHLORIDE 0.9% 1000ML 2,000 ML IV PRN (11:00)
[2018-08-18] MEDS: RIVAROXABAN 10 MG TABLET PO SCH (19:04)
[2018-08-18] MEDS: PRAVASTATIN 20 MG TAB PO SCH (20:40)
[2018-08-18] MEDS: DONEPEZIL HCL 5 MG TAB PO SCH (20:40)
[2018-08-19] VITALS (7 sets, daily range): BP systolic 123–150; BP diastolic 64–79
[2018-08-19] MEDS: TRAMADOL/APAP 37.5MG-325MG TAB PO PRN ×2 (00:29→10:32)
[2018-08-19] MEDS: INSULIN REGULAR, HUMAN 100 UNIT/1 ML 3ML VIAL SQ SCH ×3 (07:30→16:30)
[2018-08-19] MEDS: DOCUSATE SODIUM 100 MG CAP PO SCH (08:44)
[2018-08-19] MEDS: SEVELAMER CARBONATE 800 MG TAB PO SCH ×3 (08:44→17:28)
[2018-08-19] MEDS: FOLIC ACID/CYANOCOB/PYRIDOXINE TAB PO SCH (08:57)
[2018-08-19] MEDS: HYDROCHLOROTHIAZIDE 25 MG TAB PO SCH (08:57)
[2018-08-19] MEDS: FERROUS SULFATE 325 MG TAB PO SCH ×2 (08:57→17:28)
[2018-08-19] MEDS: CEPHALEXIN 500 MG CAP PO SCH (08:57)
[2018-08-19] MEDS: METOPROLOL TARTRATE 25 MG TAB PO SCH ×2 (08:58→17:41)
[2018-08-19] MEDS: LISINOPRIL 20 MG TAB PO SCH (08:58)
[2018-08-19] MEDS: SENNOSIDES 8.6 MG TAB PO SCH (08:59)
[2018-08-19] MEDS: NIFEDIPINE CR 30 MG TAB PO SCH (08:59)
[2018-08-19] MEDS: INSULIN DETEMIR 100 UNIT/ML PEN SQ SCH (09:32)
[2018-08-19] MEDS: RIVAROXABAN 10 MG TABLET PO SCH (17:28)
--- NOTE | 2018-08-19 17:49 | Discharge Summary ---
DISCHARGE DIAGNOSES: 1. Status post left hip open reduction and internal fixation performed by Orthopedics. 2. Medically debilitated. 3. End-stage renal disease on dialysis. 4. Diabetic nephropathy. 5. Diabetes. 6. Pulmonary edema. 7. Anemia of chronic disease. 8. Dementia. 9. Hypertension. CONSULTANTS: We had Orthopedics, Nephrology and Cardiology. VITAL SIGNS: Temperature is 97.1, pulse 67, respiratory rate is 18, blood pressure 131/79, pulse ox 94% on room air. LAB FINDINGS: Show white count of 7.8, hemoglobin 11.7, hematocrit , platelets of 110. Coagulations are normal. CHEMISTRY: Sodium is 136, potassium is 4, chloride is 104, bicarbonate is 21, anion gap of 15, BUN is 46, creatinine is 5.5, glucose is 190. LFTs were normal. Urinalysis was negative. MICROBIOLOGY: Urine culture was negative. IMAGING STUDIES: Hip x-ray showed a displaced comminuted left intertrochanteric femoral neck fracture, and then postop x-ray shows interval intramedullary disha and screw fixation of left femoral intertrochanteric fracture. HOSPITAL COURSE: This is a 78-year-old female who came in after having a fall, found to have a left intertrochanteric femur fracture on imaging studies. Cardiology was consulted for cardiac clearance. Orthopedics was consulted, in which the patient underwent a status post left intratrochanteric ORIF. Patient did well throughout the hospital course. Patient is a known hemodialysis patient, in which Nephrology was consulted. Patient received several dialysis treatments while here in the hospital. Patient's labs were stable. Patient worked with PT and OT. Patient will be discharged to a detention facility for further rehabilitation. Patient also received 2 units of packed RBCs while in the hospital. On the day of discharge vital signs stable, labs reviewed and stable. Patient seen and evaluated and examined thoroughly on the day of discharge with no new complaints. Patient verbalized understanding and agreed with the plan of care, to follow up accordingly as an outpatient with the primary care physician in 1 week and Orthopedics in 2 weeks' time. DISCHARGE MEDICATIONS: See med reconciliation form. DISPOSITION: senior care facility. CONDITION: Stable. DIET: Heart healthy. In the event of any worsening symptoms, the patient is advised to come back to the ED for further evaluation. Discharge summary took greater than 35 minutes. HARRY MENDIOLA MD Job#: [id number] EV
== END 2018-08-19 17:38 | DRG 480 ==
LOC: ER 09:06 → ERHOLD 14:48 → MED/SURG 17:37
PROVIDERS: ADMIT Internal Medicine; ATTEND Internal Medicine
PROC: 5A1D70Z Performance of Urinary Filtration, Intermittent, Less than 6 Hours Per Day (ICD-10-PCS; 2018-08-11)
PROC: 5A1D70Z Performance of Urinary Filtration, Intermittent, Less than 6 Hours Per Day (ICD-10-PCS; 2018-08-13)
PROC: 0QS736Z Reposition Left Upper Femur with Intramedullary Internal Fixation Device, Percutaneous Approach (ICD-10-PCS; principal; 2018-08-14 08:00)
PROC: 5A1D70Z Performance of Urinary Filtration, Intermittent, Less than 6 Hours Per Day (ICD-10-PCS; 2018-08-16)
PROC: 5A1D70Z Performance of Urinary Filtration, Intermittent, Less than 6 Hours Per Day (ICD-10-PCS; 2018-08-18)
DX: S72.142A Displaced intertrochanteric fracture of left femur, initial encounter for closed fracture (principal); N18.6 End stage renal disease; J81.1 Chronic pulmonary edema; I13.2 Hypertensive heart and chronic kidney disease with heart failure and with stage 5 chronic kidney disease, or end stage renal disease; I50.32 Chronic diastolic (congestive) heart failure; W18.30XA Fall on same level, unspecified, initial encounter; E11.22 Type 2 diabetes mellitus with diabetic chronic kidney disease; D63.1 Anemia in chronic kidney disease; F03.90 Unspecified dementia, unspecified severity, without behavioral disturbance, psychotic disturbance, mood disturbance, and anxiety; E78.5 Hyperlipidemia, unspecified; E11.40 Type 2 diabetes mellitus with diabetic neuropathy, unspecified; Z79.4 Long term (current) use of insulin; I45.10 Unspecified right bundle-branch block; Z99.2 Dependence on renal dialysis
CPT/HCPCS: 36415; 51700; 71045; 76001; 80048; 80053; 80061; 81001; 82948; 83036; 85014; 85018; 85025; 85610; 85730; 86707; 86803; 86850; 86900; 86920; 87086; 87340; 87350; 90962; 93005; 93306; 97139; 99284; C1713; J0690; J1650; J2001; J2270; J2405; J2550; J7030; J7050; P9016; Q4081

== ENCOUNTER → 2018-10-28 | Outpatient (CLI) | payer MEDICARE ==
[~2018-10-28] MED LIST: ASPIRIN EC81 MG PO; CARVEDILOL25 MG PO; DIPHENHYDRAMINE25 M1; DONEPEZIL HCL10 MG PO; FERROUS SULFAT325 MG; FULL SPECTRUM0.8 MG PO; HYDROCHLOROTH12.5 MG PO; LISINOPRIL40 MG PO; PRAVASTATIN SOD20 MG PO; RENVELA800 MG PO; VITAMIN D1000 UNI1 PO; VITAMIN E400 UNI1
--- NOTE | 2018-10-28 14:20 | Diagnostic Imaging Report ---
Radiographs of the left heel/calcaneus - 2 views HISTORY: Pain COMPARISON: None available. FINDINGS: Bones: No acute displaced fracture. Osseous alignment is within normal limits. Joints: Scattered degenerative change. No osseous erosion. Small posterior and inferior calcaneal bone spurs. Soft tissues: Scattered vascular calcification. Soft tissue swelling posteriorly. IMPRESSION: Scattered degenerative change. No osseous erosion. Small posterior and inferior calcaneal bone spurs. Scattered vascular calcification. Soft tissue swelling posteriorly. Signed by: Dr. Dennis Frazier M.D. on 10/28/2018 2:17 PM
== END ==
LOC: RAD 13:27
PROVIDERS: ATTEND Family Medicine
DX: E11.8 Type 2 diabetes mellitus with unspecified complications (principal)

== ENCOUNTER 2018-11-02 09:17 | Outpatient (RCR) | payer MEDICARE ==
[~2018-11-02 09:17] MED LIST changes: +LIDOCAINE VISC 2% SOLN 15 ML UDC ONE; +LIDOCAINE/PRILOCAINE 2.5-2.5% KIT ONE; +MUPIROCIN 2% OINT 22 GM TUBE ONE
[2018-11-02] MEDS ORDERED: MUPIROCIN 2% OINT 22 GM TUBE ONE (13:37)
[2018-11-02] MEDS ORDERED: LIDOCAINE/PRILOCAINE 2.5-2.5% KIT ONE (13:37)
== END 2018-11-03 ==
LOC: WCC 09:17
PROVIDERS: ATTEND Family Medicine
DX: E11.8 Type 2 diabetes mellitus with unspecified complications (principal); L89.622 Pressure ulcer of left heel, stage 2; N18.9 Chronic kidney disease, unspecified; I10 Essential (primary) hypertension; M13.80 Other specified arthritis, unspecified site; M21.371 Foot drop, right foot; Z74.01 Bed confinement status
CPT/HCPCS: 87071; 87075; 87186; 87205

== ENCOUNTER 2018-11-30 12:02 | Outpatient (RCR) | payer MEDICARE ==
[~2018-11-30 12:02] MED LIST changes: -LIDOCAINE VISC 2% SOLN 15 ML UDC ONE; -MUPIROCIN 2% OINT 22 GM TUBE ONE
[2018-11-30] MEDS ORDERED: MUPIROCIN 2% OINT 22 GM TUBE ONE (13:54)
[2018-11-30] MEDS ORDERED: COLLAGENASE OINTMENT 30 GM TUBE ONE (13:54)
[2018-11-30] MEDS ORDERED: LIDOCAINE/PRILOCAINE 2.5-2.5% KIT ONE (13:54)
== END 2018-12-01 ==
LOC: WCC 12:02
PROVIDERS: ATTEND Family Medicine
DX: E11.8 Type 2 diabetes mellitus with unspecified complications (principal); L89.622 Pressure ulcer of left heel, stage 2; N18.9 Chronic kidney disease, unspecified; I10 Essential (primary) hypertension; M21.371 Foot drop, right foot; M13.80 Other specified arthritis, unspecified site; Z74.01 Bed confinement status
CPT/HCPCS: 36415; 82948

== ENCOUNTER 2018-12-21 12:17 | Outpatient (RCR) | payer MEDICARE ==
[~2018-12-21 12:17] MED LIST changes: +MUPIROCIN 2% OINT 22 GM TUBE ONE
[2018-12-21] MEDS ORDERED: COLLAGENASE OINTMENT 30 GM TUBE ONE (18:37)
[2018-12-21] MEDS ORDERED: LIDOCAINE VISC 2% SOLN 15 ML UDC ONE (18:37)
== END 2019-01-01 ==
LOC: WCC 12:17
PROVIDERS: ATTEND Family Medicine
DX: E11.8 Type 2 diabetes mellitus with unspecified complications (principal); L89.622 Pressure ulcer of left heel, stage 2; I10 Essential (primary) hypertension; M13.80 Other specified arthritis, unspecified site; M21.371 Foot drop, right foot; N18.9 Chronic kidney disease, unspecified; Z74.01 Bed confinement status

== ENCOUNTER 2019-01-18 12:31 | Outpatient (RCR) | payer MEDICARE | END 2019-01-31 | LOC: WCC 12:31 | PROVIDERS: ATTEND Family Medicine | DX: E11.8 Type 2 diabetes mellitus with unspecified complications (principal); L89.622 Pressure ulcer of left heel, stage 2; N18.9 Chronic kidney disease, unspecified; I10 Essential (primary) hypertension; M13.80 Other specified arthritis, unspecified site; M21.371 Foot drop, right foot; Z74.01 Bed confinement status | CPT/HCPCS: 36415; 82948 ==

== ENCOUNTER 2019-06-16 12:46 | Emergency (ER) | payer MEDICARE, OTHER ==
[~2019-06-16] VITALS: Ht 172.7 cm; Wt 84.4 kg
[~2019-06-16 12:46] MED LIST changes: -LIDOCAINE/PRILOCAINE 2.5-2.5% KIT ONE; -MUPIROCIN 2% OINT 22 GM TUBE ONE
--- OUTSIDE RECORDS SUMMARY | 2019-06-16 12:49 | XMS REPORT | Clinical Summary ---
Author Author [facility] Address Unknown Phone Unavailable Care Team Providers Care School Office Assistant Name Role Phone Chris Hartmann MD PCP Allergies Comments Active Allergy Reactions Severity Noted Date Codeine 11/08/2017 Medications End Date Status Medication Sig Dispensed Refills Start Date Active amLODIPine (NORVASC) 10 Take 10 mg by 0 mg tablet mouth daily. Active donepezil (ARICEPT) 10 MG Take 10 mg by 0 tablet mouth nightly. Active aspirin (ECOTRIN) 81 MG Take 81 mg by 0 enteric coated tablet mouth daily. Active pravastatin (PRAVACHOL) Take 20 mg by 0 20 MG tablet mouth daily. Active lisinopril Take 20 mg by 0 (PRINIVIL,ZESTRIL) 20 mg mouth daily. tablet Active ferrous sulfate 325 (65 Take 65 mg by 0 FE) MG tablet mouth 2 (two) times a day. Active carvedilol (COREG) 25 MG Take 25 mg by 0 tablet mouth 2 (two) times a day with meals. Active insulin ASPART (NovoLOG) Inject 3 0 100 unit/mL injection Units under the skin 3 (three) times a day before meals. Active insulin GLARGINE (LANTUS) Inject 13 0 100 unit/mL injection Units under (vial) the skin nightly. Active diphenhydrAMINE Take 25 mg by 0 (BENADRYL) 25 mg tablet mouth nightly as needed for sleep. Active Problems Problem Noted Date Dialysis patient 11/09/2017 End stage renal disease 11/08/2017 Social History Date Tobacco Use Types Packs/Day Years Used Quit: 11/08/1998 Former Smoker Smokeless Tobacco: Former User Drinks/Week oz/Week Comments Alcohol Use No Sex Assigned at Date Recorded Not on file Industry Job Start Date Occupation Not on file Not on file Not on file Travel End Travel History Travel Start No recent travel history available. Last Filed Vital Signs Not on file Plan of Treatment Health Maintenance Due Date Last Done Comments SHINGLES VACCINES (#1) 1990 65+ PNEUMOCOCCAL VACCINE 2005 (1 of 2 - PCV13) INFLUENZA VACCINE 05/04/2019 Results Not on fileafter 06/15/2018 Insurance Type Payer Benefit Subscriber ID Effective Phone Address Plan / Dates Group HMO [employer] MED[employer]ARE [employer] xxxxxxxxx 2017-P HEALTHCARE resent MEDICARE Advance Directives For more information, please contact: [phone] Patient Operator Technician Explanation Type Date Recorded Advance Directives, 11/08/2017 2:07 PM Living Will and Medical Power of Ice Cutter
--- OUTSIDE RECORDS SUMMARY | 2019-06-16 12:49 | XMS REPORT | Continuity of Care Document ---
Author Author [employer] Organization [employer] Address Unknown Phone Unavailable Care Team Providers Care Remedial Project Manager Name Role Phone [facility] Swipe[employer] Information [place] Unavailable Unavailable Problems Problem Status Onset Date Classification Date Reported Comments Source ARANESP 100 MCG / [id number] / [id number] / D Active 07/06/2017 [facility] FERAHEME 510MG / [id number] / [id number] / DX: Active 04/09/2017 [facility] M25.561 - PAIN IN RIGHT KNEE Active 12/31/2015 [facility] [place] Chronic kidney disease (disorder) Resolved Problem 08/16/2017 [facility] Diabetes mellitus (disorder) Resolved Problem 08/16/2017 [facility] Hypertensive disorder, systemic arterial (disorder) Resolved Problem 08/16/2017 [facility] Iron deficiency anemia (disorder) Resolved Problem 08/16/2017 [facility] Arthritis (disorder) Resolved Problem 08/16/2017 [facility] ANEMIA IN CHRONIC KIDNEY DISEASE Active [facility] CHRONIC KIDNEY DISEASE, UNSPECIFIED Active [facility] CHRONIC KIDNEY DISEASE, STAGE 4 (SEVERE) Active [facility] Medications Medication Details Route Status Patient Instructions Ordering Provider Order Date Source darbepoetin ryan 100 microgram, 1 mL, Route: SUB-Q, Drug form: INJ, ONCALL, Start date: 07/23/17 11:00:00 CDT, Duration: 8 hr, Stop date: 07/23/17 18:59:00 CDTNotes: (Same as: Aranesp) Non-Formulary Inactive 07/23/2017 [facility] darbepoetin ryan 100 microgram, 1 mL, Route: SUB-Q, Drug form: INJ, ONCALL, Start date: 07/16/17 11:00:00 CDT, Duration: 8 hr, Stop date: 07/16/17 18:59:00 CDTNotes: (Same as: Aranesp) Non-Formulary Inactive 07/16/2017 [facility] darbepoetin ryan 100 microgram, 1 mL, Route: SUB-Q, Drug form: INJ, ONCALL, Start date: 07/15/17 16:00:00 CDT, Duration: 6 hr, Stop date: 07/15/17 21:59:00 CDTNotes: (Same as: Aranesp) Non-Formulary No Longer Active 07/15/2017 [facility] Feraheme + sodium chloride 0.9% 100 [...] mg Product Wasted: ___ mg Inactive 05/05/2017 [facility] Feraheme + sodium chloride 0.9% 100 [...] mg Product Wasted: ___ mg Inactive 04/20/2017 [facility] donepezil 10 mg, PO, Bedtime, 0 Refill(s) Active 04/13/2017 [facility] carvedilol 25 MG Oral Tablet [Coreg] 25 mg=1 tab, PO, BID, # 60 tab, 0 Refill(s) Active 04/13/2017 [facility] Insulin Glargine 100 UNT/ML Injectable Solution [Lantus] 24 unit, SUB-Q, Bedtime, 0 Refill(s) Active 04/13/2017 [facility] Diphenhydramine Hydrochloride 25 MG Oral Capsule [Benadryl] 25 mg=1 cap, PO, Bedtime, 0 Refill(s) Active 04/13/2017 [facility] Aspirin 81 mg, PO, Daily, 0 Refill(s) Active 04/13/2017 [facility] Iron Chews 65 mg, PO, BID, 0 Refill(s) Active 04/13/2017 [facility] pravastatin 20 mg oral tablet 20 mg=1 tab, PO, Bedtime, # 30 tab, 0 Refill(s) Active 04/13/2017 [facility] NovoLog 8 unit, SUB-Q, Daily, 0 Refill(s) Active 04/13/2017 [facility] Amlodipine 10 mg, PO, Daily, 0 Refill(s) Active 04/13/2017 [facility] Feraheme + sodium chloride 0.9% 100 [...] mg Product Wasted: ___ mg Inactive 04/13/2017 [facility] Aspirin (Aspirin Ec) 81 Mg Tablet.dr Abarca Active [facility] Carvedilol 25 Mg Tablet Twice A Day Active [facility] Cholecalciferol (Vitamin D3) (Vitamin D) 1,000 Unit Tablet Daily Active [facility] Diphenhydramine Hcl 25 Mg Capsule Active [facility] Donepezil Hcl 10 Mg Tablet Daily Active [facility] Ferrous Sulfate 325 Mg Tablet Active [facility] Folic Acid/Vitamin B Comp W-C (Full Spectrum B With Vit C Tab) 0.8 Mg Tablet Daily Active [facility] Hydrochlorothiazide 12.5 Mg Tablet Daily Active [facility] Lisinopril 40 Mg Tablet Twice A Day Active [facility] Pravastatin Sodium 20 Mg Tablet Bedtime Active [facility] Sevelamer Hcl (Renvela) 800 Mg Tab Three Times Daily With Meals Active AND WITH SNACKS [facility] Vitamin E Mixed (Vitamin E) 400 Unit Capsule Active [facility] Allergies, Adverse Reactions, Alerts Substance Category Reaction Severity Reaction type Status Date Reported Comments Source Codeine Mild Allergy to Substance Active 02/14/2010 [facility] Etodolac Mild Allergy to Substance Active 02/14/2010 [facility] Immunizations No Data Provided for This Section Results Order Name Results Value Reference Range Date Interpretation Comments Source Capillary blood glucose measurement by glucometer (mass/volume) 192 70 - 120 01/04/2019 [facility] Capillary blood glucose measurement by glucometer (mass/volume) 84 70 - 120 11/09/2018 [facility] Bacteria identification in wound by culture Organism: ENTEROBACTER CLOACAE 10/19/2018 [facility] Capillary blood glucose measurement by glucometer (mass/volume) 120 70 - 120 08/19/2018 [facility] Serum hepatitis B virus e antigen detection by enzyme immunoassay Negative Negative 08/18/2018 [facility] Serum hepatitis B virus e antigen detection by enzyme immunoassay Negative Negative 08/18/2018 [facility] Blood leukocytes automated count (number/volume) 10.87 4.8 - 10.8 08/17/2018 [facility] Blood erythrocytes automated count (number/volume) 2.95 3.6 - 5.1 08/17/2018 [facility] Blood hemoglobin measurement (moles/volume) 9.7 12.0 - 16.0 08/17/2018 [facility] Automated blood hematocrit (volume fraction) 29.1 34.2 - 44.1 08/17/2018 [facility] Automated erythrocyte mean corpuscular volume 98.6 81 - 99 08/17/2018 [facility] Automated erythrocyte mean corpuscular hemoglobin (mass per erythrocyte) 32.9 28 - 32 08/17/2018 [facility] Automated erythrocyte mean corpuscular hemoglobin concentration measurement (mass/volume) 33.3 31 - 35 08/17/2018 [facility] RDW BldCo-Rto 16.1 11.7 - 14.4 08/17/2018 [facility] Automated blood platelet count (count/volume) 110 140 - 360 08/17/2018 [facility] Automated blood segmented neutrophil count as percentage of total leukocytes 75.5 38.7 - 80.0 08/17/2018 [facility] Automated blood lymphocyte count as percentage ot total leukocytes 10.1 18.0 - 39.1 08/17/2018 [facility] Automated blood monocyte count as percentage of total leukocytes 9.0 4.4 - 11.3 08/17/2018 [facility] Automated blood eosinophil count as percentage of total leukocytes 4.1 0.0 - 6.0 08/17/2018 [facility] Automated blood basophil count as percentage of total leukocytes 0.5 0.0 - 1.0 08/17/2018 [facility] IM GRANULOCYTES % 0.8 0.0 - 1.0 08/17/2018 [facility] Automated blood neutrophil count 8.2 2.1 - 6.9 08/17/2018 [facility] Blood lymphocytes count (number/volume) 1.1 1.0 - 3.2 08/17/2018 [facility] Blood monocytes automated count (number/volume) 1.0 0.2 - 0.8 08/17/2018 [facility] Automated blood eosinophil count 0.5 0.0 - 0.4 08/17/2018 [facility] Automated blood basophil count (count/volume) 0.1 0.0 - 0.1 08/17/2018 [facility] Absolute Immature Granulocyte (auto 0.09 0 - 0.1 08/17/2018 [facility] Serum or plasma sodium measurement (moles/volume) 136 136 - 145 08/15/2018 [facility] Serum or plasma potassium measurement (moles/volume) 4.0 3.5 - 5.1 08/15/2018 [facility] Serum or plasma chloride measurement (moles/volume) 104 98 - 107 08/15/2018 [facility] Serum or plasma carbon dioxide, total measurement (moles/volume) 21 22 - 29 08/15/2018 [facility] Serum or plasma anion gap 15.0 8 - 16 08/15/2018 [facility] Serum or plasma urea nitrogen measurement (mass/volume) 46 7 - 26 08/15/2018 [facility] Serum or plasma creatinine measurement (mass/volume) 5.51 0.57 - 1.11 08/15/2018 [facility] Serum or plasma urea nitrogen/creatinine mass ratio 8 6 - 25 08/15/2018 [facility] Estimated glomerular filtration rate (GFR) determination 7 60 08/15/2018 [facility] Glucose measurement 138 74 - 118 08/15/2018 [facility] Serum or plasma calcium measurement (mass/volume) 8.9 8.4 - 10.2 08/15/2018 [facility] Serum or plasma total bilirubin measurement (mass/volume) 0.4 0.2 - 1.2 08/13/2018 [facility] Aspartate Amino Transf (AST/SGOT) 16 5 - 34 08/13/2018 [facility] Serum or plasma alanine aminotransferase measurement (enzymatic activity/volume) 13 0 - 55 08/13/2018 [facility] Serum or plasma protein measurement (mass/volume) 6.5 6.5 - 8.1 08/13/2018 [facility] Serum or plasma albumin measurement (mass/volume) 3.2 3.5 - 5.0 08/13/2018 [facility] Plasma globulin measurement (mass/volume) 3.3 2.3 - 3.5 08/13/2018 [facility] Serum or plasma albumin/globulin mass ratio 1.0 0.8 - 2.0 08/13/2018 [facility] Serum or plasma alkaline phosphatase measurement (enzymatic activity/volume) 79 40 - 150 08/13/2018 [facility] Serum or plasma alkaline phosphatase measurement (enzymatic activity/volume) 79 40 - 150 08/13/2018 [facility] Hemoglobin A1c Percent 5.9 4.0 - 7.0 08/12/2018 [facility] Serum or plasma triglyceride measurement (mass/volume) 103 0 - 149 08/12/2018 [facility] Serum or plasma cholesterol measurement (mass/volume) 144 0 - 199 08/12/2018 [facility] Serum or plasma cholesterol in LDL measurement (mass/volume) 77 60 - 130 08/12/2018 [facility] Serum or plasma cholesterol in HDL measurement (mass/volume) 46 40 - 60 08/12/2018 [facility] Serum or plasma total cholesterol/cholesterol in HDL mass ratio 3.1 3.0 - 3.6 08/12/2018 [facility] Hemoglobin A1c Percent 5.9 4.0 - 7.0 08/12/2018 [facility] Serum or plasma total cholesterol/cholesterol in HDL mass ratio 3.1 3.0 - 3.6 08/12/2018 [facility] Qualitative serum or plasma hepatitis B virus e antibody by enzyme immunoassay Negative Negative 08/11/2018 [facility] Serum or plasma hepatitis B virus surface antigen detection by immunoassay Negative 08/11/2018 [facility] Serum hepatitis C virus antibody detection <0.1 08/11/2018 [facility] Qualitative serum or plasma hepatitis B virus e antibody by enzyme immunoassay Negative Negative 08/11/2018 [facility] Serum hepatitis C virus antibody detection <0.1 08/11/2018 [facility] Urine color determination YELLOW YELLOW 08/11/2018 [facility] Urine clarity CLEAR CLEAR 08/11/2018 [facility] Specific gravity of Urine by Test strip 1.015 1.010 - 1.025 08/11/2018 [facility] Urine pH measurement by automated test strip 7 5 - 7 08/11/2018 [facility] Urine leukocyte esterase detection by dipstick NEGATIVE NEGATIVE 08/11/2018 [facility] Urine nitrite detection NEGATIVE NEGATIVE 08/11/2018 [facility] Urine protein measurement by test strip (mass/volume) 2+ NEGATIVE 08/11/2018 [facility] Urine glucose detection 2+ NEGATIVE 08/11/2018 [facility] Urine ketones detection by automated test strip NEGATIVE NEGATIVE 08/11/2018 [facility] Urine urobilinogen measurement by test strip (mass/volume) 0.2 0.2 - 1 08/11/2018 [facility] Urine total bilirubin measurement (mass/volume) NEGATIVE NEGATIVE 08/11/2018 [facility] Urine erythrocytes detection NEGATIVE NEGATIVE 08/11/2018 [facility] Automated urine sediment leukocyte count by microscopy (number/high power field) 0-5 0 - 5 08/11/2018 [facility] Erythrocytes detection in urine sediment by light microscopy NONE 0 - 5 08/11/2018 [facility] Bacteria detection in urine sediment by light microscopy RARE NONE 08/11/2018 [facility] Epithelial cells detection in urine sediment by light microscopy RARE NONE 08/11/2018 [facility] Prothrombin time (PT) in platelet poor plasma by coagulation assay 14.7 11.9 - 14.5 08/11/2018 [facility] INR in Platelet poor plasma by Coagulation assay 1.05 08/11/2018 [facility] Activated partial thromboplastin time (aPTT) in platelet poor plasma bycoagulation assay 28.8 23.8 - 35.5 08/11/2018 [facility] HEMATOLOGY Hct 37.5 36.0 - 48.0 08/05/2017 [facility] HEMATOLOGY Hgb 12.3 12.0 - 16.0 08/05/2017 [facility] HEMATOLOGY Hct 35.8 36.0 - 48.0 07/29/2017 [facility] HEMATOLOGY Hgb 11.5 12.0 - 16.0 07/29/2017 [facility] HEMATOLOGY Hct 32.0 36.0 - 48.0 07/22/2017 [facility] HEMATOLOGY Hgb 10.6 12.0 - 16.0 07/22/2017 [facility] Pathology Reports No Data Provided for This Section Diagnostic Reports Report Value Date Source Knee 1-2 Views unilateral DX EXAMINATION: Right [...] total knee arthroplasty in near-anatomic alignment. 12/31/2015 [facility] Consultation Notes No Data Provided for This Section Discharge Summaries No Data Provided for This Section History and Physicals No Data Provided for This Section Vital Signs Vital Sign Value Date Comments Source Heart Rate 60 07/22/2017 [facility] Respitory Rate 18 07/22/2017 [facility] Temperature Oral (F) 97.9 F 07/22/2017 [facility] Systolic (mm Hg) 122 07/22/2017 [facility] Diastolic (mm Hg) 73 07/22/2017 [facility] Height 172.72 cm 07/15/2017 [facility] Weight 76.818 07/15/2017 [facility] BMI Calculated 25.75 07/15/2017 [facility] Heart Rate 61 07/15/2017 [facility] Temperature Oral (F) 97.9 F 07/15/2017 [facility] Respitory Rate 18 07/15/2017 [facility] Systolic (mm Hg) 123 07/15/2017 [facility] Diastolic (mm Hg) 75 07/15/2017 [facility] Systolic (mm Hg) 164 05/05/2017 [facility] Diastolic (mm Hg) 75 05/05/2017 [facility] Respitory Rate 16 05/05/2017 [facility] Heart Rate 58 05/05/2017 [facility] Temperature Oral (F) 97.8 F 05/05/2017 [facility] Respitory Rate 18 04/13/2017 [facility] Systolic (mm Hg) 156 04/13/2017 [facility] Diastolic (mm Hg) 74 04/13/2017 [facility] Heart Rate 64 04/13/2017 [facility] Temperature Oral (F) 98.2 F 04/13/2017 [facility] Weight 79 04/12/2017 [facility] BMI Calculated 27.34 04/12/2017 [facility] Height 170 cm 04/12/2017 [facility] Encounters Location Location Details Encounter Type Encounter Number Reason For Visit Attending Provider ADM Date DC Date Status Source [facility] - [facility] [id number] Cortez Carrillo 12/31/2015 01/01/2016 [facility] Recurring [id number] Dimple Shepard 04/13/2017 05/13/2017 [facility] Recurring [id number] Franklin Suggs 07/15/2017 08/14/2017 [facility] Discharged Inpatient [id number] LEANNE BOND MD 08/11/2018 08/19/2018 [facility] Discharged Recurring [id number] SHERRIE WONG MD 10/19/2018 11/03/2018 [facility] Registered Clinic [id number] SHERRIE WONG MD 10/28/2018 [facility] Discharged Recurring [id number] SHERRIE WONG MD 11/09/2018 12/01/2018 [facility] Discharged Recurring [id number] SHERRIE WONG MD 12/07/2018 01/01/2019 [facility] Discharged Recurring [id number] SHERRIE WONG MD 01/18/2019 01/31/2019 [facility] Procedures Procedure Code Date Perfomer Comments Source PERFORMANCE OF URINARY FILTRATION, <6 HRS/DAY [id number] 08/18/2018 HILDA [facility] REPOSITION LEFT UPPER FEMUR WITH INTRAMED FIX, PERC APPROACH [id number] 08/14/2018 BREANNA [facility] Bladder surveillance - check cystoscopy [id number] [facility] Hip replacement [id number] [facility] Hysterectomy [id number] [facility] Parathyroidectomy [id number] [facility] Assessment and Plan No Data Provided for This Section Plan of Care Plan of Care Date Source Prescriptions See Medication Section 02/01/2019 [facility] Prescriptions See Medication Section 12/02/2018 [facility] Discharge Date 08/19/18 5:38pm Disposition TRANSFER INTERMEDIATE Prescriptions See Medication Section Additional Instructions/Education ok to transfer to snf once cleared toe touch weightbearing left LE for 2 months keep wound dry/clean - do not get wet rtc - dr Simmons in 10-14 days - call [phone] for appt call with fevers greater than 101.5 that are sustained, excessive drainage from wounds or a change in pain continue dvt prophylaxis 08/19/2018 [facility] Social History Social History Date Source No social history information available. 02/01/2019 [facility] Social History TypeResponse Smoking Status Never smoker; Ready to change: Yes; Concerns about tobacco use in household: Yes; Exposure to Tobacco Smoke None; Cigarette Smoking Last 365 Days No; Reg Smoking Cessation Counseling Yes 07/16/2017 [facility] No data available for this section 01/01/2016 [facility] Family History No Data Provided for This Section Advance Directives Order Name Results Value Date Source Advance Directives Advance Directives Directive Response Recorded Date/Time Does the patient have an advance directive? No 08/11/18 6:09pm If yes, is advance directive on file with [employer]? No 12/26/09 1:04pm If not on file with [facility] will patient provide a copy? No 08/11/18 9:25am Do you have a Directive to Physician? No 01/03/19 2:59pm Do you have a Medical Power of Last Code Striper? No 01/03/19 2:59pm Do you have an out of hospital Do Not Resuscitate Order? No 01/03/19 2:59pm Do you have any special needs we should be aware of? No 01/03/19 2:59pm Do you have a support person here with you today? No 01/03/19 2:59pm Did patient receive Notice of Privacy Practices? Yes 01/03/19 2:59pm Did patient receive patient rights and responsibilities? Yes 01/03/19 2:59pm 02/01/2019 [facility] Advance Directives Advance Directives Directive Response Recorded Date/Time Does the patient have an advance directive? No 08/11/18 6:09pm If yes, is advance directive on file with [facility]? No 12/26/09 1:04pm If not on file with [facility] will patient provide a copy? No 08/11/18 9:25am Do you have a Directive to Physician? No 11/08/18 2:40pm Do you have a Medical Power of Last Code Striper? No 11/08/18 2:40pm Do you have an out of hospital Do Not Resuscitate Order? No 11/08/18 2:40pm Do you have any special needs we should be aware of? No 11/08/18 2:40pm Do you have a support person here with you today? No 11/08/18 2:40pm Did patient receive Notice of Privacy Practices? Yes 11/08/18 2:40pm Did patient receive patient rights and responsibilities? Yes 11/08/18 2:40pm 12/02/2018 [facility] Advance Directives Advance Directives Directive Response Recorded Date/Time Does the patient have an advance directive? No 08/11/18 6:09pm If yes, is advance directive on file with [facility]? No 12/26/09 1:04pm If not on file with [facility] will patient provide a copy? No 08/11/18 9:25am Do you have a Directive to Physician? No 08/11/18 9:25am Do you have a Medical Power of Last Code Striper? No 08/11/18 9:25am Do you have an out of hospital Do Not Resuscitate Order? No 08/11/18 9:25am Do you have any special needs we should be aware of? No 08/11/18 9:25am Do you have a support person here with you today? Yes 08/11/18 9:25am Did patient receive Notice of Privacy Practices? Yes 08/11/18 9:25am Did patient receive patient rights and responsibilities? Yes 08/11/18 9:25am 08/19/2018 [facility] Functional Status No Data Provided for This Section
[2019-06-16] MEDS ORDERED: ULTRAM50 MG PO (14:02)
--- NOTE | 2019-06-16 14:41 | Diagnostic Imaging Report ---
Exam: PA and lateral chest radiograph Comparison: August 11, 2018 Clinical history: Congestion Findings: There is mild cardiomegaly. There is no evidence of consolidation. Mild blunting of the right costophrenic sulcus is noted likely represents pleural effusion versus pleural thickening. There is no evidence of pneumothorax. The regional osseous structures are unchanged. Impression: 1. Mild cardiomegaly. Signed by: Dr. Darrell Redding MD on 06/16/2019 2:38 PM
== END 2019-06-16 15:09 | disposition home or self-care (01) ==
LOC: ER 12:46
DX: B02.9 Zoster without complications (principal); I12.0 Hypertensive chronic kidney disease with stage 5 chronic kidney disease or end stage renal disease; E11.22 Type 2 diabetes mellitus with diabetic chronic kidney disease; N18.6 End stage renal disease; Z99.2 Dependence on renal dialysis; Z96.641 Presence of right artificial hip joint; Z96.651 Presence of right artificial knee joint
CPT/HCPCS: 71046; 99283

== ENCOUNTER 2020-02-24 10:22 | Inpatient (IN) | payer MEDICARE, OTHER ==
[~2020-02-24] VITALS: Ht 170.2 cm; Wt 75.9 kg
[~2020-02-24 10:22] MED LIST changes: -DIPHENHYDRAMINE25 M1; +DIPHENHYDRAMINE25 M1 PO; -FERROUS SULFAT325 MG; +FERROUS SULFAT325 MG PO; +ULTRAM50 MG PO; -VITAMIN E400 UNI1; +VITAMIN E400 UNI1 PO
--- OUTSIDE RECORDS SUMMARY | 2020-02-24 10:24 | XMS REPORT | Continuity of Care Document ---
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 Phone [facility] [employer] Unavailable Un available Problems Problem Status Onset Date Classification Date Reported Comments Source ARANESP 100 MCG / [id number] / CPT= 15836 / D Active 07/06/2017 [facility] FERAHEME 510MG / 87456 / ITC=Q4123 / DX: Active 04/09/2017 [facility] M25.561 - PAIN IN RIGHT KNEE A ctive 12/31/2015 [facility] Chronic kidney disease (disorder) Resolved Problem [facility] Diabetes mellitus (disorder) R esolved Problem [facility] Hypertensive disorder, systemic arterial (disorder) Resolved Problem 08/16/2017 [facility] Iron deficiency anemia (disorder) Resolved Problem [facility] Arthritis (disorder) Resolved Problem 08/16/2017 [facility] ANEMIA IN CHRONIC KIDNEY DISEASE Active [facility] CHRONIC KIDNEY DISEASE, UNSPECIFIED Active [facility] CHRONIC KIDNEY DISEASE, STAGE 4 (SEVERE) Active [facility] Medications Medication Details Route Status Patient Instructions Ordering Provider Order Date Source darbepoetin ryan Notes: (Same as: Aranesp) Non- Formulary Inactive 07/23/2017 [facility] darbepoetin ryan Notes: (Same as: Aranesp) Non- Formulary Inactive 07/16/2017 [facility] darbepoetin ryan Notes: (Same as: Aranesp) Non- Formulary No Longer Active 07/15/2017 [facility] Feraheme + sodium chloride 0.9% 100 mL I NJ (for IV set) 100 mL Notes: USE IMMEDIATELY - PT IS ON CAMPUS ALREADY Same as: Feraheme Non- Formulary DO NOT administer undiluted IVP. This agent is reserved for use by Nephrologists in patients who are unable to tolerate oral therapy. MEDICATION WASTE Product Size: 510 mg Product Wasted: ___ mg Inactive 05/05/2017 [facility] Feraheme + sodium chloride 0.9% 100 mL I NJ (for IV set) 100 mL Notes: Same as: Feraheme Non-Formulary DO NOT administer undiluted IVP. This agent is reserved for use by Nephrologists in patients who are unable to tolerate oral therapy. MEDICATION WASTE Product Size: 510 mg Product Wasted: ___ mg Inactive 04/20/2017 [facility] donepezil 10 mg, PO, Bedtime, 0 Refill(s) Active 04/13/2017 [facility] carvedilol 25 MG Oral Tablet [Coreg] 25 mg = 1 tab, PO, BID, # 60 tab, 0 Refill(s) Active 04/13/2017 [facility] Insulin Glargine 100 UNT/ML Injectable S olution [Lantus] 24 unit, SUB-Q, Bedtime, 0 Refill(s) Active 04/13/2017 [facility] Diphenhydramine Hydrochloride 25 MG Oral Capsule [Benadryl] 25 mg = 1 cap, PO, Bedtime, 0 Refill(s) Active 04/13/2017 [facility] Aspirin 81 mg, PO, Daily, 0 Re fill(s) Active 04/13/2017 [facility] Iron Chews 65 mg, PO, BID, 0 R efill(s) Active 04/13/2017 [facility] pravastatin 20 mg oral tablet 20 mg = 1 tab, PO, Bedtime, # 30 tab, 0 Refill(s) Active 04/13/2017 [facility] NovoLog 8 unit, SUB-Q, Daily, 0 Refill(s) Active 04/13/2017 [facility] Amlodipine 10 mg, PO, Daily, 0 Refill(s) Active 04/13/2017 [facility] Feraheme + sodium chloride 0.9% 100 mL I NJ (for IV set) 100 mL Notes: Same as: Feraheme Non-Formulary DO NOT administer undiluted IVP. This agent is reserved for use by Nephrologists in patients who are unable to tolerate oral therapy. MEDICATION WASTE Product Size: 510 mg Product Wasted: ___ mg Inactive 04/13/2017 [facility] Allergies, Adverse Reactions, Alerts No Known Medication Allergies Immunizations No Data Provided for This Section Results Order Name Results Value Reference Range Date Interpretation Comments Source HEMATOLOGY Hct 37.5 36.0 - 48.0 08/05/2017 [facility] HEMATOLOGY Hgb 12.3 12.0 - 16.0 08/05/2017 [facility] HEMATOLOGY Hct 35.8 36.0 - 48.0 07/29/2017 [facility] HEMATOLOGY Hgb 11.5 12.0 - 16.0 07/29/2017 [facility] HEMATOLOGY Hct 32.0 36.0 - 48.0 07/22/2017 [facility] HEMATOLOGY Hgb 10.6 12.0 - 16.0 07/22/2017 [facility] Pathology Reports No Data Provided for This Section Diagnostic Reports Report Value Date Source Knee 1-2 Views unilateral DX E XAMINATION: Right knee AP and lateral. HISTORY: pain in right knee; right knee arthritis FINDINGS: Frontal and lateral views of the right knee are performed without comparison. There is a 3 component right total knee arthroplasty in near anatomic alignment without periprosthetic fracture or osteolysis. There is no right knee effusion. Arterial atherosclerotic calcifications are noted. IMPRESSION: 1. Right total knee arthroplasty in near -anatomic alignment. 12/31/2015 [facility] Consultation Notes No Data Provided for This Section Discharge Summaries No Data Provided for This Section History and Physicals No Data Provided for This Section Vital Signs Vital Sign Value Date Comments Source Heart Rate 60 07/22/2017 [facility] Respitory Rate 18 07/22/2017 [facility] Temperature Oral (F) 97.9 F 07/22/2017 [facility] Systolic (mm Hg) 122 07/22/2017 [facility] Diastolic (mm Hg) 73 07/22/2017 [facility] Height 172.72 cm 07/15/2017 [facility] Weight 76.818 07/15/2017 [facility] BMI Calculated 25.75 07/15/2017 [facility] Heart Rate 61 07/15/2017 [facility] Temperature Oral (F) 97.9 F 07/15/2017 [facility] Respitory Rate 18 07/15/2017 [facility] Systolic (mm Hg) 123 07/15/2017 [facility] Diastolic (mm Hg) 75 07/15/2017 [facility] Systolic (mm Hg) 164 05/05/2017 [facility] Diastolic (mm Hg) 75 05/05/2017 [facility] Respitory Rate 16 05/05/2017 [facility] Heart Rate 58 05/05/2017 [facility] Temperature Oral (F) 97.8 F 05/05/2017 [facility] Respitory Rate 18 04/13/2017 [facility] Systolic (mm Hg) 156 04/13/2017 [facility] Diastolic (mm Hg) 74 04/13/2017 [facility] Heart Rate 64 04/13/2017 [facility] Temperature Oral (F) 98.2 F 04/13/2017 [facility] Weight 79 0 04/12/2017 [facility] BMI Calculated 27.34 04/12/2017 [facility] Height 170 cm 04/12/2017 [facility] Encounters Location Location Details Encounter Type Encounter Number Reason For Visit Attending Provider ADM Date DC Date Status Source [facility] [place] [facility] [id number] Cortez Carrillo Jr 12/31/2015 01/01/2016 [facility] Recurring [id number] Dimple Drea 04/13/2017 05/13/2017 [facility] Recurring [id number] [place] Josesitojose 07/15/2017 08/14/2017 [facility] Procedures Procedure Code Date Perfomer Comments Source Bladder surveillance - check cystoscopy [id number] [facility] Hip replacement [id number] [facility] Hysterectomy [id number] [facility] st Parathyroidectomy [id number] [facility] Assessment and Plan No Data Provided for This Section Plan of Care No Data Provided for This Section Social History Social History Date Source Social History TypeResponse Smoking Status Never smoker; Ready to change: Yes; Concerns about tobacco use in household: Yes; Exposure to Tobacco Smoke None; Cigarette Smoking Last 365 Days No; Reg Smoking Cessation Counseling Yes 07/16/2017 [facility] No data available for this section 01/01/2016 [facility] Family History No Data Provided for This Section Advance Directives No Data Provided for This Section Functional Status No Data Provided for This Section
--- OUTSIDE RECORDS SUMMARY | 2020-02-24 10:24 | XMS REPORT | Clinical Summary ---
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
--- OUTSIDE RECORDS SUMMARY | 2020-02-24 10:25 | XMS REPORT ---
Author Author [facility] t Organization [facility] t Address [address] [place] [address] Phone Unavailable Care Team Providers Care Consumer Science Teacher Name Role Phone KRISTINA TEJEDA MDH PCP CONSTANTIN CHAN Attphys Unavailable SHERRIE WONG Attphys Unavailable LEANNE BOND Attphybarry Unavailable Lila Shepard Attphys Alexi Carrillo Jr Attphys LEANNE BOND Admphys Unavailable Payers Payer Name Policy Type Policy Number Effective Date Expiration Date [facility] [id number] 2017 00:00:00 [facility] Care Improvement Plus [id number] 2017 00:00:00 [facility] Care Improvement Plus [id number] 2017 00:00:00 [facility] Care Improvement Plus [id number] 2017 00:00:00 [facility] Care Improvement Plus [id number] 2017 00:00:00 [facility] Care Improvement Plus [id number] 2017 00:00:00 [facility] Problems Condition Name Condition Details Condition Category Status Onset Date Resolution Date Last Treatment Date Treating Clinician Comments Source Dialysis patient Dialysis patient Disease Active 2017-11-09 00:00:00 James Cortes End stage renal disease End stage renal disease Disease Active 2017-11-08 00:00:[address] ARANESP 100 MCG / J0881 / CPT= 02609 / D ARANESP 100 MCG / J0881 / CPT= 41676 / D Active 07/06/2017 [facility] Diagnosis Ac tive 2017-07-06 00:00:00 2017-08-25 10:57:00 [facility] FERAHEME 510MG / 03602 / PTD=M9635 / DX: FERAHEME 510MG / 31247 / EAV=V3403 / DX: Active 04/09/2017 [facility] Diagnosis Ac ti 2017-04-09 00:00:00 2017-05-05 14:47:00 [facility] M25.561 - PAIN IN RIGHT KNEE M 25.561 - PAIN IN RIGHT KNEE Active 12/31/2015 [facility] Diagnosis Active 2015-12-31 00:0 1:00 2015-12-31 14:15:00 [facility] Chronic kidney disease (disorder) Chronic kidney disease (disorder) Resolved Problem 08/16/2017 [facility] Problem Resolved 2017-08-16 01:19:36 [facility] Diabetes mellitus (disorder) D iabetes mellitus (disorder) Resolved Problem 08/16/2017 [facility] Problem Resolved 2017-08-16 01:19:36 [facility] Hypertensive disorder, systemic arterial (disorder) Hypertensive disorder, systemic arterial (disorder) Resolved Problem 08/16/2017 [facility] Problem Resolved 2017-08-16 01:19:36 [facility] Iron deficiency anemia (disorder) Iron deficiency anemia (disorder) Resolved Problem 08/16/2017 [facility] Problem Resolved 2017-08-16 01:19:36 [facility] Arthritis (disorder) Arth ritis (disorder) Resolved Problem 08/16/2017 [facility] Problem Resolved 2017-08-16 01:19: 36 [facility] ANEMIA IN CHRONIC KIDNEY DISEASE ANEMIA IN CHRONIC KIDNEY DISEASE Active [facility] Diagnosis Active 2017-08-25 10:57:00 [facility] CHRONIC KIDNEY DISEASE, UNSPECIFIED CHRONIC KIDNEY DISEASE, UNSPECIFIED Active [facility] Diagnosis Active 2017-05-05 14:47:00 [facility] CHRONIC KIDNEY DISEASE, STAGE 4 (SEVERE) CHRONIC KIDNEY DISEASE, STAGE 4 (SEVERE) Active [facility] Diagnosis Active 2017-08-25 10:57:00 [facility] Allergies, Adverse Reactions, Alerts Allergy Name Allergy Type Status Severity Reaction(s) Onset Date Inacti ve Date Treating Clinician Comments Source Codeine Propensity to adverse reactions to drug Active 2017-11-08 00:00:00 James Cortes Codeine Allergy to Substance Active Mild 2010-02-14 00:00:00 [facility] Etodolac Allergy to Substance Active Mild 2010-02-14 00:00:00 [facility] Social History Social Habit Start Date Stop Date Quantity Comments Source Sex Assigned At Kate cartagena Sophia Alcohol intake 2017-11-08 00:00:00 2017-11-08 00:00:00 Current non-drinker of alcohol (finding) James Cortes Social History 2016-01-01 04:59:00 2016-01-01 04:59:00 [facility] History of tobacco use 1998-11-08 00:00:00 Current smoker James Cortes Smoking Status Start Date Stop Date Source Former smoker 2017-11-08 00:00:00 2017-11-08 00:00:00 [facility] Medications Ordered Medication Name Filled Medication Name Start Date Stop Da te Current Medication? 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 James Cortes donepezil (ARICEPT) 10 MG tablet 2017-11-11 12:26:54 Yes 10mg QD Take 10 mg by mouth nightly. James Cortes aspirin (ECOTRIN) 81 MG enteric coated tablet 2017-11-11 12:26:5 4 Yes 81mg QD Take 81 mg by mouth daily. Shobha Cortes pravastatin (PRAVACHOL) 20 MG tablet 2017-11-11 12:26:54 Ye s 20mg QD Take 20 mg by mouth daily. James romo lisinopril (PRINIVIL,ZESTRIL) 20 mg tablet 2017-11-11 12:26:54 Yes 20mg QD Take 20 mg by mouth daily. Ana Rosa Cortes ferrous sulfate 325 (65 FE) MG tablet 2017-11-11 12:26:54 Y es 65mg Q.5D Take 65 mg by mouth 2 (two) times a day. James Cortes carvedilol (COREG) 25 MG tablet 2017-11-11 12:26:54 Yes 25mg Q.5D Take 25 mg by mouth 2 (two) times a day with meals. James Cortes insulin ASPART (NovoLOG) 100 unit/mL injection 2017-11-11 12:26: 54 Yes 3U Q.[id number] Inject 3 Units under the ski n 3 (three) times a day before meals. James Cortes insulin GLARGINE (LANTUS) 100 unit/mL injection (vial) 2017-11-11 12:26:54 Yes 13U QD Inject 13 Units under the skin nightly. James Cortes diphenhydrAMINE (BENADRYL) 25 mg tablet 2017-11-11 12:26:54 Yes 25mg QD Take 25 mg by mouth nightly as needed for sleep. James Cortes darbepoetin ryan 2017-07-23 16:00:00 Yes Notes: (Same as: Radha) Non-Formulary [facility] darbepoetin ryan 2017-07-16 16:00:00 No Notes: (Same as: Radha) Non-Formulary [facility] darbepoetin ryan 2017-07-15 21:00:00 No Notes: (Same as: Aranesp) Non-Formulary [facility] Feraheme + sodium chloride 0.9% 100 mL INJ (for IV set) 100 mL 2017-05-05 14:00:00 No Notes: USE IMMEDIATELY - PT IS ON CAMPUS ALREADY Same as: Feraheme Non-Formulary DO NOT administer undiluted IVP. This agent is reserved for use by Nephrologists in patients who are unable to tolerate oral therapy. MEDICATION WASTE Product Size: 510 mg Product Wasted: ___ mg [facility] Feraheme + sodium chloride 0.9% 100 mL INJ (for IV set) 100 mL 2017-04-20 14:00:00 Yes Notes: Cristopher e as: Feraheme Non-Formulary DO NOT administer undiluted IVP. This agent is reserved for use by Nephrologists in patients who are unable to tolerate oral therapy. MEDICATION WASTE Product Size: 510 mg Product Wasted: ___ mg [facility] ast donepezil 2017-04-13 20:01:00 Yes 10 mg, PO, Bedtime, 0 Refill(s) [facility] carvedilol 25 MG Oral Tablet [Coreg] 2017-04-13 20:01:00 Ye s 25 mg = 1 tab, PO, BID, # 60 tab, 0 Refill(s) [facility] Insulin Glargine 100 UNT/ML Injectable Solution [Lantus] 2017-04-13 20:01:00 Yes 24 unit, SUB-Q, Bedtime, 0 Refil l(s) [facility] Diphenhydramine Hydrochloride 25 MG Oral Capsule [Benadryl] 2017-04-13 20:01:00 Yes 25 mg = 1 cap, PO, Bedtime, 0 Refill(s) [facility] Aspirin 2017-04-13 20:01:00 Yes 81 mg, PO, D aily, 0 Refill(s) [facility] Iron Chews 2017-04-13 20:01:00 Yes 65 mg, PO , BID, 0 Refill(s) [facility] pravastatin 20 mg oral tablet 2017-04-13 20:01:00 Yes 20 mg = 1 tab, PO, Bedtime, # 30 tab, 0 Refill(s) [facility] NovoLog 2017-04-13 20:01:00 Yes 8 un it, SUB-Q, Daily, 0 Refill(s) [facility] Amlodipine 2017-04-13 20:01:00 Yes 1 0 mg, PO, Daily, 0 Refill(s) [facility] Feraheme + sodium chloride 0.9% 100 mL INJ (for IV set) 100 mL 2017-04-13 14:00:00 No Notes: Cristopher sawant as: Feraheme Non-Formulary DO NOT administer undiluted IVP. This agent is reserved for use by Nephrologists in patients who are unable to tolerate oral therapy. MEDICATION WASTE Product Size: 510 mg Product Wasted: ___ [facility] Aspirin (Aspirin Ec) 81 Mg Tablet. Aspirin (Aspirin Ec) 81 Mg Tab let. Yes 81 Daily [facility] Carvedilol 25 Mg Tablet Carvedilol 25 Mg Tablet Yes 25 Twice A Day [facility] Cholecalciferol (Vitamin D3) (Vitamin D) 1,000 Unit [place] Cholecalciferol (Vitamin D3) (Vitamin D) 1,000 Unit Tablet Yes 1000 Daily [facility] Diphenhydramine Hcl 25 Mg Capsule Diphenhydramine Hcl 25 Mg Capsule Yes [facility] Donepezil Hcl 10 Mg Tablet Donepezil Hcl 10 Mg Tablet Yes 10 Daily [facility] Ferrous Sulfate 325 Mg Tablet Ferrous Sulfate 325 Mg Tablet Ye s [facility] Folic Acid/Vitamin B Comp W-C (Full Spectrum B With Vi t C Tab) 0.8 Mg Tablet Folic Acid/Vitamin B Comp W-C (Full Spectrum B With Vit C Tab) 0.8 Mg Tablet Yes 1 Daily [facility] Hydrochlorothiazide 12.5 Mg Tablet Hydrochlorothiazide 12.5 Mg Tablet Yes 12.5 Daily [facility] Lisinopril 40 Mg Tablet Lisinopril 40 Mg Tablet Yes .5 Twice A Day [facility] Pravastatin Sodium 20 Mg Tablet Pravastatin Sodium 20 Mg Tablet Yes 20 Bedtime [facility] Sevelamer Hcl (Renvela) 800 Mg Tab Sevelamer Hcl (Renvela) 800 Mg Tab Yes 3 Three Times Daily With Meals [facility] Vitamin E Mixed (Vitamin E) 400 Unit Capsule Vitamin E Mixed (Vitamin E) 400 Unit Capsule Yes [facility] Vital Signs Vital Name Observation Time Observation Value Comments Source Heart Rate 2017-07-22 18:30:00 [place] Respitory Rate 2017-07-22 18:30:00 [facility] Temperature Oral (F) 2017-07-22 18:30:00 97.9 F [facility] Systolic (mm Hg) 2017-07-22 18:30:00 [facility] Diastolic (mm Hg) 2017-07-22 18:30:00 [facility] Height 2017-07-15 20:35:00 172.72 cm [facility] Weight 2017-07-15 20:35:00 [facility] BMI Calculated 2017-07-15 20:35:00 Aliyah theast Heart Rate 2017-07-15 19:01:00 [facility] Temperature Oral (F) 2017-07-15 19:01:00 97.9 F [facility] Respitory Rate 2017-07-15 19:01:00 Aliyah theast Systolic (mm Hg) 2017-07-15 19:01:00 [facility] Diastolic (mm Hg) 2017-07-15 19:01:00 [place] Systolic (mm Hg) 2017-05-05 14:18:00 [facility] Diastolic (mm Hg) 2017-05-05 14:18:00 [facility] Respitory Rate 2017-05-05 14:18:00 Aliyah theast Heart Rate 2017-05-05 14:18:00 [facility] Temperature Oral (F) 2017-05-05 14:18:00 97.8 F [facility] Respitory Rate 2017-04-13 14:15:00 Aliyah theast Systolic (mm Hg) 2017-04-13 14:15:00 [facility] Diastolic (mm Hg) 2017-04-13 14:15:00 [facility] Heart Rate 2017-04-13 14:15:00 [facility] Temperature Oral (F) 2017-04-13 14:15:00 98.2 F [facility] Weight 2017-04-12 20:06:00 [facility] BMI Calculated 2017-04-12 20:06:00 Aliyah theast Height 2017-04-12 20:06:00 170 cm [facility] Procedures Procedure Date / Time Performed Performing Clinician Sour e X-ray of chest, two views 2019-06-16 00:00:00 CONSTANTIN CHAN CH I [facility] Bladder surveillance - check cystoscopy [facility] Hip replacement [facility] Hysterectomy [facility] Parathyroidectomy [facility] Plan of Care Planned Activity Planned Date Details Comments Source Future Scheduled Test 2020-05-04 00:00:00 INFLUENZA VACCINE [code = INFLUENZA VACCINE] [facility] Future Scheduled Test 2005 00:00:00 65+ PNEUMOCOCCAL V ACCINE (1 of 2 - PCV13) [code = 65+ PNEUMOCOCCAL VACCINE (1 of 2 - PCV13)] [facility] Future Scheduled Test 1990 00:00:00 SHINGLES VACCINES (#1) [code = SHINGLES VACCINES (#1)] [facility] Encounters Start Date/Time End Date/Time Encounter Type Admission Type Attendi [facility] Care Department Encounter ID Source 2019-06-16 12:46:00 2019-06-16 12:46:00 Registered Emergency Room 1 CONSTANTIN CHAN [facility] [id number] [facility] 2019-01-04 13:55:00 2019-01-31 23:59:00 Discharged Recurring [facility] [id number] [facility] 2018-12-07 09:35:00 2019-01-01 23:59:00 Discharged Recurring [facility] [id number] [facility] 2018-11-09 10:45:00 2018-12-01 23:59:00 Discharged Recurring [facility] [id number] [facility] 2018-10-19 08:52:00 2018-11-03 23:59:00 Discharged Recurring [facility] [id number] [facility] 2018-10-28 13:27:00 2018-10-28 13:27:00 Registered Clinic 3 SHERRIE WONG [facility] [id number] [facility] 2018-08-11 14:48:00 2018-08-19 17:38:00 Discharged Inpatient 1 LEANNE BOND [facility] [id number] [facility] 2017-07-15 18:40:00 2017-08-14 05:59:00 Recurring [facility] [id number] [facility] 2017-07-15 13:40:00 2017-08-13 23:59:00 Outpatient Drea Klever robertmichelle [facility] [id number] 2017-04-13 13:55:00 2017-05-13 04:59:00 Recurring [facility] [id number] [facility] 2017-04-13 08:55:00 2017-05-12 23:59:00 Outpatient Drea Klever robertmichelle [facility] [id number] 2015-12-31 19:05:00 2016-01-01 04:59:00 Outpt Diag Services [facility] Outpatient Imaging - [facility] [id number] [facility] 2015-12-31 14:05:00 2015-12-31 23:59:00 Outpatient Cortez Carrillo [facility] [id number] Results Test Description Test Time Test Comments Results Result Comments Source CHEST 2 VIEWS 2019-06-16 14:35:00 [facility] [address] [address] Patient Name: BEN GALLAGHER MR #: [id number] : 1940 Age/Sex: 78/F Req #: [id number] Adm Physician: Ordered by: CONSTANTIN CHAN DO Report #: [id number] Location: ER Room/Bed: Procedure: [id number] DX/CHEST 2 VIEWS Exam Date: 06/16/19 Exam Time: 1415 REPORT STATUS: Signed Exam: PA and lateral chest radiograph Comparison: August 11, 2018 Clinical history: Congestion Findings: There is mild cardiomegaly. There is no evidence of consolidation. Mild blunting of the right costophrenic sulcus is noted likely represents pleural effusion versus pleural thickening. There is no evidence of pneumothorax. The regional osseous structures are unchanged. Impression: 1. Mild cardiomegaly. Signed by: Dr. Darrell Redding MD on 06/16/2019 2:38 PM Dictated By: CASSIE REDDING MD 1438 Transcribed By: GAYLA on 06/16/19 1438 COPY TO: CONSTANTIN CHAN DO Bedside Glucose 2019-01-04 15:47:00 Test Item Bedside Glucose (test code = 96134-7) 192 70-120 Meter ID: [id number] [facility]2019-01-25 14:15:[address] [address] Patient Name: BEN GALLAGHER MR #: [id number] : 1940 Age/Sex: 78/F Req #: [id number] Adm Physician: Ordered by: SHERRIE WONG MD Report #: [id number] Location: [facility] Room/Bed: Procedure: [id number] D X/HEEL LT Exam Date: 10/28/18 Exam Time: 1339 REPORT STATUS: Signed Radiographs of t he left heel/calcaneus - 2 views HISTORY: Pain COMPARISON: None availabl e. FINDINGS: Bones: No acute displaced fracture. Osseous align ment is within normal limits. Joints: Scattered degenerative change. No o sseous erosion. Small posterior and inferior calcaneal bone spurs. Soft t issues: Scattered vascular calcification. Soft tissue swelling posteriorly. IMPRESSION: Scattered degenerative change. No osseous erosion. Small po sterior and inferior calcaneal bone spurs. Scattered vascular calcificati on. Soft tissue swelling posteriorly. Signed by: Dr. Mercedes Frazier M.D. on 2:17 PM Dictated By: MERCEDES FRAZIER MD, MD 1417 Transcribed By: GAYLA on 10/28/18 14 17 COPY TO: SHERRIE WONG MD Wound [id number] 08:50:00* Test Item Value Reference Range Interpretation Comments Wound Culture (test code = 6462-6) Organism: EN[facility]OBACTER CLOACAE [facility] [id number] 11:05:[address] [address] Patient Name: BEN GALLAGHER MR #: [id number] : 1940 Age/Sex: 78/F Req #: [id number] Adm Physician: LEANNE BOND MD Ordered by: SAMIR CARLOS MD Report #: [id number] Location: MED/SURG Room/Bed: [facility] Procedure: [id number] D X/FEMUR ONE VIEW LEFT Exam Date: Exam Time: REPORT STATUS: Signed FEMUR ONE VIEW L EFT - 1 view HISTORY: Pain COMPARISON: 08/11/2018 FINDINGS: S ee impression. IMPRESSION: Interval intramedullary disha and screw fixatio n of left femoral intertrochanteric fracture. Hardware is intact. Mild postsur gical soft tissue emphysema, swelling, and skin erin. Signed by: Dr. Nhung Whelan MD on 08/14/2018 11:06 AM Dictated By: KARUNA WHELAN MD El ectronically Signed By: KARUNA WHELAN MD on 08/14/181105 Transcribed By: MICHELLE BOYCE on 08/14/181105 COPY TO: SAMIR CARLOS MD HIP LEFT 2-3 VW (+/- PELVIS)2018-08-14 11:02:[address] [address] Patient Name: BEN GALLAGHER MR #: [id number] : 1940 Age/Sex: 78/F Req #: [id number] Adm Physician: LEANNE BOND MD Ordered by: SAMIR CARLOS MD Report #: [id number] Location: MED/SURG Room/Bed: [facility] Procedure: [id number] D X/HIP LEFT 2-3 VW (+/- PELVIS) Exam Date: Exam Time : REPORT STATUS: Signed HIP LEF T 2-3 VW (+/- PELVIS) - 2 views HISTORY: Pain COMPARISON: 08/11/2018 FINDINGS: Limited by body habitus. Interval intramedullary disha and scr ew fixation of left femoral intertrochanteric fracture. Hardware is intact. Mi ld postsurgical soft tissue emphysema, swelling, and skin erin. Severe de generative changes of the left hip. Again seen right hip arthroplasty. Intact hardware. IMPRESSION: Interval intramedullary disha and screw fixation of left femoral intertrochanteric fracture. Hardware is intact. Mild postsurgi kyung soft tissue emphysema, swelling, and skin erin. Signed by: Dr. Katie Whelan MD on 08/14/2018 11:05 AM Dictated By: KARUNA WHELAN MD Elec tronically Signed By: KARUNA WHELAN MD on 08/14/181104 Transcribed By: GAYLA on 08/14/181104 COPY TO: SAMIR CARLOS MD HIP LEFT 2-3 VW (+/- PELVIS)2018-08-11 12:07:[address] [address] Patient Name: BEN GALLAGHER MR #: [id number] : 1940 Age/Sex: 78/F Req #: [id number] Adm Physician: Ordered by: BHAKTI HELLER MD Report #: [id number] Location: ER Room/Bed: Procedure: [id number] DX /HIP LEFT 2-3 VW (+/- PELVIS) Exam Date: Exam Time: REPORT STATUS: Signed Exam: Le ft hip radiographs two views, AP radiograph of [...] 12:13 PM Dictated By: YO MUNOZ MD 12 Transcribed By: MISAEL CHAN on 08/11/181212 COPY TO: BHAKTI HELLER MD CHEST SINGLE (PORTABLE)2018-08-11 12:05:[address] [address] Patient Name: BEN GALLAGHER MR #: [id number] : 1940 Age/Sex: 78/F Req #: [id number] Adm Physician: Ordered by: BHAKTI HELLER MD Report #: [id number] Location: ER Room/Bed: Procedure: [id number] DX /CHEST SINGLE (PORTABLE) Exam Date: 08/11/18 Exam Ti me: 1110 REPORT STATUS: Signed E XAMINATION: CHEST SINGLE (PORTABLE) COMPARISON: None FINDIN GS: TUBES and LINES: None. LUNGS: Lungs are well inflated. Mild patchy bibasilar opacities, likely atelectasis. There is no evidence of pneumonia or pulmonary edema. PLEURA: No pleural effusion or pneumothorax. Biapical pl eural parenchymal opacity. HEART AND MEDIASTINUM: Mildly enlarged cardi omediastinal silhouette. Atherosclerotic calcification of the aortic arch. BONES AND SOFT TISSUES: No acute osseous lesion. Soft tissues are unremar kable. UPPER ABDOMEN: No free air under the diaphragm. IMPRESSION: No acute radiographic abnormality. Mild patchy bibasilar opacities, li lisa atelectasis. Mild cardiomegaly without pulmonary edema. Signed by: Dr. Yo Munoz MD on 08/11/2018 12:18 PM Dictated By: YO MUNOZ MD 1218 Transcribed By: TOO Loaiza on 08/11/18 1218 COPY TO: BHAKTI HELLER MD HEMATOLOGY 2017-08-05 19:02:0037.5[id number] 19:02:0012.3[facility] [id number] 18:59:0035.8[facility] HospitalTy[id number] 18:59:0011.5[facility] HospitalVgr[id number] 18:37:0032.0[facility] HospitalNtwxtawirQXJFAATSDU6878-21-74 18:37:0010.6[facility]
[2020-02-24] MEDS ORDERED: FUROSEMIDE INJ 10 MG/ML 10 ML VIAL IV ONE (10:45)
[2020-02-24] MEDS ORDERED: SODIUM CHLORIDE 0.9% IV ONE (11:00)
[2020-02-24] MEDS ORDERED: FUROSEMIDE IV ONE (11:00)
[2020-02-24] MEDS ORDERED: CEFTRIAXONE SOD 1 GM/NS 50 ML 50 ML IV ONE (11:00)
[2020-02-24 11:16] LABS: BASOPHILS # (AUTO) 0.1 (0.0-0.1); BASOPHILS % 0.6 % (0.0-1.0); EOSINOPHILS # (AUTO) 0.8 (0.0-0.4); EOSINOPHILS % 5.9 % (0.0-6.0); HEMATOCRIT 28.4 % (34.2-44.1); HEMOGLOBIN 8.9 g/dL (12.0-16.0); LYMPHOCYTES # (AUTO) 1.1 (1.0-3.2); MEAN CORPUSCULAR HEMOGLOBIN 32.4 pg (28-32); MEAN CORPUSCULAR HGB CONC 31.3 g/dL (31-35); MEAN CORPUSCULAR VOLUME 103.3 fL (81-99); MONOCYTES # (AUTO) 0.9 (0.2-0.8); MONOCYTES % 6.7 % (4.4-11.3); NEUTROPHILS # (AUTO) 10.8 (2.1-6.9); NEUTROPHILS % 77.5 % (38.7-80.0); PLATELET COUNT 104 x10e3/uL (140-360); RED BLOOD COUNT 2.75 x10e6/uL (3.6-5.1); RED CELL DISTRIBUTION WIDTH 15.7 % (11.7-14.4)
--- NOTE | 2020-02-24 11:16 | Emergency Department Note ---
History of Present Illnes History of Present Illness Chief Complaint: Respiratory History of Present Illness This is a 79 year old female SENT OVER FROM DIALYSIS FOR POSSIBLE PNE UMONIA C/O COUGH WITH DARK PHLEGM AND DIFFICULTY BREATHING X 1 WEEK DENIES CP PT PRESENTS WITH COUGH AND SOB DENIES HOME O2 USE FORMER SMOKER DOES NOT DRINK DOES DIALYSIS T//S. Historian: Patient, Family Member Arrival Mode: Car Funnel Coater Required: No Onset (how long ago): week(s) (1) Location: LUNGS Quality: COUGH, SOB Radiation: non-radiation Severity: moderate Onset quality: gradual Duration (how long): week(s) (1) Timing of current episode: constant Progression: worsening Context: recent illness Relieving factors: none Exacerbating factors: other (WORSE SOB WITH COUGH) Associated symptoms: cough, shortness of breath, other (NO FEVER/CHILLS) Treatments prior to arrival: none, other (PT WENT TO [facility] FOR SCHEDULED DIALYSIS TODAY, TOLD TO GO TO ER DUE TO O2 SAT 90% ON RA) Past Medical/Family History Physician Review I have reviewed the patient's past medical and family history. Any updates have been documented here. Past Medical History Recent Fever: No Clinical Suspicion of Infectio: Yes New/Unexplained Change in Ment: No Past Medical History: Hypertension, Diabetes, ESRD, Hemodyalisis, GERD Other Medical History: r hip replace; hysterectomy; parathyroidectomy, r knee replace; cataract sx; bladder susp. Past Surgical History: Hysterectomy, Hip Replacement, Knee Replacement Other Surgery: Right hip replacement, Right knee Replacement PARATHYROIDECTOMY Social History Smoking Cessation: Former smoker (AND SMOKES DAILY (SECONDARY SMOKE)) Alcohol Use: None Any Illegal Drug Use: No TB Exposure/Symptoms: No Physically hurt or threatened: No Other Last Tetanus: UNK Any Pre-Existing Lines (PICC,: No Is patient up to date on immun: Yes Last Flu: UTD Last Pneumovax: UTD Review of Systems Review of Systems Constitutional: no symptoms EENTM: no symptoms Cardiovascular: no symptoms Respiratory: as per HPI, cough, dyspnea, dyspnea on exertion Gastrointestinal: no symptoms Genitourinary: no symptoms Musculoskeletal: no symptoms Neurological: no symptoms Psychological: no symptoms Endocrine: no symptoms Hematological/Lymphatic: no symptoms Review of other systems All other systems reviewed and negative. Physical Exam Related Data Allergies: Coded Allergies: codeine (Verified Allergy, Mild, 02/14/10) etodolac (Verified Allergy, Mild, 02/14/10) Triage Vital Signs Vital Signs Date Time Temp Pulse Resp B/P (MAP) Pulse Ox O2 Delivery O2 Flow Rate FiO2 02/24/20 10:24 98.6 104 26 156/89 95 Vital signs reviewed: Yes Physical Exam CONSTITUTIONAL Constitutional: well-developed, well-nourished HENT HENT: normocephalic, atraumatic, oropharynx clear/moist, nose normal HENT L/R: left ext ear normal, right ext ear normal EYES Eyes: PERRL, conjunctivae normal NECK Neck: ROM normal PULMONARY Pulmonary: effort normal, respiratory distress (MILD, WITH TACHYPNEA), rales, rhonchi, other (DECREASED BS's THROUGHOUT, mild exp-wheezes diffusely) CARDIOVASCULAR Cardiovascular: regular rhythm, heart sounds normal, capillary refill normal, normal rate GASTROINTESTINAL Abdominal: soft, nontender, bowel sounds normal GENITOURINARY Genitourinary: exam deferred SKIN Skin: warm, dry MUSCULOSKELETAL Musculoskeletal: ROM normal NEUROLOGICAL Neurological: alert, oriented x 3, no gross motor or sensory deficits PSYCHOLOGICAL Psychological: mood/affect normal, judgement normal Results Laboratory Lab results reviewed: No Imaging Imaging results reviewed: No Diagnostics Tests Diagnostic test(s) reviewed: Yes Procedures 12 Lead ECG Interpretation Funnel Coater: Interpreted by ED physician Date: February 24, 2020 Time: 11:00 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 Assessment & Plan Reassessment Reassessment LIKELY PNEUMONIA, COUGH X 1 WEEK WITH PROGRESSIVE SOB, H/O ESRD AND NO HD SINCE . TACHYPNEIC BUT O2 SAT 95% ON RA. Check cbc, chem's, blood cx's, cxr, cardiac enzymes, bnp, Covid19 swab. Rule out pneumonia, bronchitis, Covid19, CHF, volume overload, STEMI/NSTEMI Assessment & Plan Final Impression: (1) Pneumonia (2) ESRD (end stage renal disease) on dialysis Assessment & Plan Admit, pt started on by PCP, had Covid19 test done on (not resulted yet), I ordered Rocephin and Doxycycline - I spoke with Dr Cedillo, Dr Greco, Dr Lay, and Dr Mendez (nephrology) Depart Disposition: ADMITTED Last Vital Signs Date Time Temp Pulse Resp B/P (MAP) Pulse Ox O2 Delivery O2 Flow Rate FiO2 02/24/20 10:24 98.6 104 26 156/89 95 Home Meds Active Scripts Tramadol Hcl (ULTRAM) 50 Mg Tablet, 50 MG PO Q6H PRN for Mild Pain (1-3) or Fever>100.8, #20 TAB Prov:ESTELLE ESPARZAJUNIE Murguia HELP DESK MANAGER 06/16/19 Reported Medications Cholecalciferol (Vitamin D3) (VITAMIN D) 1,000 Unit Tablet, 1000 UNIT PO DAILY, #30 TAB 08/11/18 Ferrous Sulfate (FERROUS SULFATE) 325 Mg Tablet 08/11/18 Diphenhydramine Hcl (DIPHENHYDRAMINE HCL) 25 Mg Capsule 08/11/18 Vitamin E Mixed (VITAMIN E) 400 Unit Capsule 08/11/18 Aspirin (ASPIRIN EC) 81 Mg Tablet.dr, 81 MG PO DAILY, #30 TAB 08/11/18 Folic Acid/Vitamin B Comp W-C (FULL SPECTRUM B WITH VIT C TAB) 0.8 Mg Tablet, 1 TAB PO DAILY 08/11/18 Pravastatin Sodium (PRAVASTATIN SODIUM) 20 Mg Tablet, 20 MG PO HS 08/11/18 Donepezil Hcl (DONEPEZIL HCL) 10 Mg Tablet, 10 MG PO DAILY 08/11/18 Hydrochlorothiazide (HYDROCHLOROTHIAZIDE) 12.5 Mg Tablet, 12.5 MG PO DAILY 08/11/18 Lisinopril (LISINOPRIL) 40 Mg Tablet, 0.5 TAB PO BID 08/11/18 Sevelamer Hcl (RENVELA) 800 Mg Tab, 3 TAB PO TIDWM AND WITH SNACKS 08/11/18 Carvedilol (CARVEDILOL) 25 Mg Tablet, 25 MG PO BID 08/11/18 Medications in the ED Ceftriaxone Sodium 50 ml @ 100 mls/hr ONCE ONCE IV ; Start 02/24/20 at 11:00; Stop 02/24/20 at 11:29 Doxycycline Hyclate 100 ml @ 100 mls/hr Q12H IV ; Start 02/24/20 at 11:00; Stop 03/02/20 at 10:59 Albuterol 1 gm RQ4H PRN INH SHORTNESS OF BREATH; Start 02/24/20 at 10:45; Stop 03/25/20 at 10:44 Furosemide 100 mg ONCE ONCE IV ; Start 02/24/20 at 10:45; Stop 02/24/20 at 10:45; Status DC Furosemide 100 mg/ Sodium Chloride 60 ml @ 120 mls/hr ONCE ONCE IV ; Start 02/24/20 at 11:00; Stop 02/24/20 at 11:29 MABLE MADISON MD February 24, 2020 11:16
--- NOTE | 2020-02-24 11:27 | NUR ---
FAMILY WILL BRING BACK MEDS FOR RECONCILATION
[2020-02-24] MEDS ORDERED: DEXTROSE 50% SYRINGE 50 ML IV PRN (11:30)
--- OUTSIDE RECORDS SUMMARY | 2020-02-24 11:32 | XMS REPORT ---
Author Author [facility] t Organization [facility] t Address [address] [place] [address] Phone Unavailable Care Team Providers Care Track Inspector Name Role Phone KRISTINA TEJEDA MDH PCP CONSTANTIN CHAN Attphys Unavailable SHERRIE WONG Attphys Unavailable LEANNE BOND Attphybarry Unavailable Lila Shepard Attphys Alexi Carrillo Jr Attphys LEANNE BOND Admphys Unavailable Payers Payer Name Policy Type Policy Number Effective Date Expiration Date [facility] [id number] 2017 00:00:00 [facility] Care Improvement Plus [id number] 2017 00:00:00 [facility] Care Improvement Plus [id number] 2017 00:00:00 [facility] [employer] Improvement Plus [id number] 2017 00:00:00 [facility] [employer] Improvement Plus [id number] 2017 00:00:00 [facility] [employer] Improvement Plus [id number] 2017 00:00:00 [facility] Problems Condition Name Condition Details Condition Category Status Onset Date Resolution Date Last Treatment Date Treating Clinician Comments Source Dialysis patient Dialysis patient Disease Active 2017-11-09 00:00:00 James Cortes End stage renal disease End stage renal disease Disease Active 2017-11-08 00:00:[address] ARANESP 100 MCG / J0881 / CPT= 21324 / D ARANESP 100 MCG / J0881 / CPT= 27119 / D Active 07/06/2017 [facility] Diagnosis Ac tive 2017-07-06 00:00:00 2017-08-25 10:57:00 [facility] FERAHEME 510MG / 32523 / SGG=[id number] / DX: FERAHEME 510MG / 54522 / DZM=[id number] / DX: Active 04/09/2017 [facility] Diagnosis Ac ti 2017-04-09 00:00:00 2017-05-05 14:47:00 M [facility] M25.561 - PAIN IN RIGHT KNEE M 25.561 - PAIN IN RIGHT KNEE Active 12/31/2015 [facility] [place] Diagnosis Active 2015-12-31 00:0 1:00 2015-12-31 14:15:00 [facility] [place] Chronic kidney disease (disorder) Chronic kidney disease (disorder) Resolved Problem 08/16/2017 [place] Problem Resolved 2017-08-16 01:19:36 [facility] Diabetes mellitus (disorder) D iabetes mellitus (disorder) Resolved Problem 08/16/2017 [place] Problem Resolved 2017-08-16 01:19:36 [facility] Hypertensive disorder, systemic arterial (disorder) Hypertensive disorder, systemic arterial (disorder) Resolved Problem 08/16/2017 [place] Problem Resolved 2017-08-16 01:19:36 [facility] Iron deficiency anemia (disorder) Iron deficiency anemia (disorder) Resolved Problem 08/16/2017 [facility] Problem Resolved 2017-08-16 01:19:36 [facility] Arthritis (disorder) Arth ritis (disorder) Resolved Problem 08/16/2017 [facility] Problem Resolved 2017-08-16 01:19: 36 [facility] ANEMIA IN CHRONIC KIDNEY DISEASE ANEMIA IN CHRONIC KIDNEY DISEASE Active [facility] Diagnosis Active 2017-08-25 10:57:00 [facility] CHRONIC KIDNEY DISEASE, UNSPECIFIED CHRONIC KIDNEY DISEASE, UNSPECIFIED Active [facility] Diagnosis Active 2017-05-05 14:47:00 [facility] CHRONIC KIDNEY DISEASE, STAGE 4 (SEVERE) CHRONIC KIDNEY DISEASE, STAGE 4 (SEVERE) Active [facility] Diagnosis Active 2017-08-25 10:57:00 [facility] Allergies, Adverse Reactions, Alerts Allergy Name Allergy Type Status Severity Reaction(s) Onset Date Inacti ve Date Treating Clinician Comments Source Codeine Propensity to adverse reactions to drug Active 2017-11-08 00:00:00 James Cortes Codeine Allergy to Substance Active Mild 2010-02-14 00:00:00 [facility] Etodolac Allergy to Substance Active Mild 2010-02-14 00:00:00 [facility] Social History Social Habit Start Date Stop Date Quantity Comments Source Sex Assigned At Kate cartagena Sophia Alcohol intake 2017-11-08 00:00:00 2017-11-08 00:00:00 Current non-drinker of alcohol (finding) James Cortes Social History 2016-01-01 04:59:00 2016-01-01 04:59:00 [facility] History of tobacco use 1998-11-08 00:00:00 Current smoker James Cortes Smoking Status Start Date Stop Date Source Former smoker 2017-11-08 00:00:00 2017-11-08 00:00:00 [facility] Medications Ordered Medication Name Filled Medication Name Start Date Stop Da te Current Medication? Ordering Clinician Indication Dosage Frequency Signature (SIG) Comments Components Source Tramadol Hcl (Ultram) 50 Mg Tablet Tramadol Hcl (Ultram) 50 Mg Tablet 2019-06-16 00:00:00 Yes Eliud Vargas Program Director/Traffic Director 50 Every 6 Hours as needed for Mild Pain (1-3) Or Fever>100.8 [facility] amLODIPine (NORVASC) 10 mg [...] unit/mL injection 2017-11-11 12:26: 54 Yes 3U Q.[id number] Inject 3 Units under the ski n [...] 16:00:00 Yes Notes: (Same as: Radha) Non-Formulary [facility] darbepoetin ryan 2017-07-16 16:00:00 No Notes: (Same as: Radha) Non-Formulary [facility] darbepoetin ryan 2017-07-15 21:00:00 No Notes: (Same as: Aranesp) Non-Formulary [facility] Feraheme + sodium chloride 0.9% 100 mL INJ (for IV set) 100 mL 2017-05-05 14:00:00 No Notes: USE IMMEDIATELY - PT IS ON CAMPUS ALREADY Same as: Feraheme Non-Formulary DO NOT administer undiluted IVP. This agent is reserved for use by Nephrologists in patients who are unable to tolerate oral therapy. MEDICATION WASTE Product Size: 510 mg Product Wasted: ___ mg [facility] Feraheme + sodium chloride 0.9% 100 mL INJ (for IV set) 100 mL 2017-04-20 14:00:00 Yes Notes: Cristopher e as: Feraheme Non-Formulary DO NOT administer undiluted IVP. This agent is reserved for use by Nephrologists in patients who are unable to tolerate oral therapy. MEDICATION WASTE Product Size: 510 mg Product Wasted: ___ mg [facility] ast donepezil 2017-04-13 20:01:00 Yes 10 mg, PO, Bedtime, 0 Refill(s) [facility] carvedilol 25 MG Oral Tablet [Coreg] 2017-04-13 20:01:00 Ye s 25 mg = 1 tab, PO, BID, # 60 tab, 0 Refill(s) [facility] Insulin Glargine 100 UNT/ML Injectable Solution [Lantus] 2017-04-13 20:01:00 Yes 24 unit, SUB-Q, Bedtime, 0 Refil l(s) [facility] Diphenhydramine Hydrochloride 25 MG Oral Capsule [Benadryl] 2017-04-13 20:01:00 Yes 25 mg = 1 cap, PO, Bedtime, 0 Refill(s) [facility] Aspirin 2017-04-13 20:01:00 Yes 81 mg, PO, D aily, 0 Refill(s) [facility] Iron Chews 2017-04-13 20:01:00 Yes 65 mg, PO , BID, 0 Refill(s) [facility] pravastatin 20 mg oral tablet 2017-04-13 20:01:00 Yes 20 mg = 1 tab, PO, Bedtime, # 30 tab, 0 Refill(s) [facility] NovoLog 2017-04-13 20:01:00 Yes 8 un it, SUB-Q, Daily, 0 Refill(s) [facility] Amlodipine 2017-04-13 20:01:00 Yes 1 0 mg, PO, Daily, 0 Refill(s) [facility] Feraheme + sodium chloride 0.9% 100 mL INJ (for IV set) 100 mL 2017-04-13 14:00:00 No Notes: Cristopher sawant as: Feraheme Non-Formulary DO NOT administer undiluted IVP. This agent is reserved for use by Nephrologists in patients who are unable to tolerate oral therapy. MEDICATION WASTE Product Size: 510 mg Product Wasted: [facility] Aspirin (Aspirin Ec) 81 Mg Tablet. Aspirin (Aspirin Ec) 81 Mg Tab let. Yes 81 Daily [facility] Carvedilol 25 Mg Tablet Carvedilol 25 Mg Tablet Yes 25 Twice A Day [facility] Cholecalciferol (Vitamin D3) (Vitamin D) 1,000 Unit [place] b[place] Cholecalciferol (Vitamin D3) (Vitamin D) 1,000 Unit Tablet Yes 1000 Daily [facility] Diphenhydramine Hcl 25 Mg Capsule Diphenhydramine Hcl 25 Mg Capsule Yes [facility] Donepezil Hcl 10 Mg Tablet Donepezil Hcl 10 Mg Tablet Yes 10 Daily [facility] Ferrous Sulfate 325 Mg Tablet Ferrous Sulfate 325 Mg Tablet Ye s [facility] Folic Acid/Vitamin B Comp W-C (Full Spectrum B With Vi t C Tab) 0.8 Mg Tablet Folic Acid/Vitamin B Comp W-C (Full Spectrum B With Vit C Tab) 0.8 Mg Tablet Yes 1 Daily [facility] Hydrochlorothiazide 12.5 Mg Tablet Hydrochlorothiazide 12.5 Mg Tablet Yes 12.5 Daily [facility] Lisinopril 40 Mg Tablet Lisinopril 40 Mg Tablet Yes .5 Twice A Day [facility] Pravastatin Sodium 20 Mg Tablet Pravastatin Sodium 20 Mg Tablet Yes 20 Bedtime [facility] Sevelamer Hcl (Renvela) 800 Mg Tab Sevelamer Hcl (Renvela) 800 Mg Tab Yes 3 Three Times Daily With Meals [facility] Vitamin E Mixed (Vitamin E) 400 Unit Capsule Vitamin E Mixed (Vitamin E) 400 Unit Capsule Yes [facility] Vital Signs Vital Name Observation Time Observation Value Comments Source Heart Rate 2017-07-22 18:30:00 [place] Respitory Rate 2017-07-22 18:30:00 [facility]ast Temperature Oral (F) 2017-07-22 18:30:00 97.9 F [facility] Systolic (mm Hg) 2017-07-22 18:30:00 [facility] Diastolic (mm Hg) 2017-07-22 18:30:00 [facility] Height 2017-07-15 20:35:00 172.72 cm [facility] Weight 2017-07-15 20:35:00 [facility] BMI Calculated 2017-07-15 20:35:00 Aliyah [facility] Heart Rate 2017-07-15 19:01:00 [facility] Temperature Oral (F) 2017-07-15 19:01:00 97.9 F [facility] Respitory Rate 2017-07-15 19:01:00 [facility] Systolic (mm Hg) 2017-07-15 19:01:00 [facility] Diastolic (mm Hg) 2017-07-15 19:01:00 [place] Systolic (mm Hg) 2017-05-05 14:18:00 [facility] Diastolic (mm Hg) 2017-05-05 14:18:00 [facility] Respitory Rate 2017-05-05 14:18:00 [facility] the[facility] Heart Rate 2017-05-05 14:18:00 [facility] Temperature Oral (F) 2017-05-05 14:18:00 97.8 F [facility] Respitory Rate 2017-04-13 14:15:00 [facility] Systolic (mm Hg) 2017-04-13 14:15:00 [facility] Diastolic (mm Hg) 2017-04-13 14:15:00 [facility] Heart Rate 2017-04-13 14:15:00 [facility] Temperature Oral (F) 2017-04-13 14:15:00 98.2 F [facility] Weight 2017-04-12 20:06:00 [facility] BMI Calculated 2017-04-12 20:06:00 [facility] Height 2017-04-12 20:06:00 170 cm [facility] Procedures Procedure Date / Time Performed Performing Clinician Sour e X-ray of chest, two views 2019-06-16 00:00:00 CONSTANTIN CHAN [facility] Bladder surveillance - check cystoscopy [facility] Hip replacement [facility] Hysterectomy [facility] Parathyroidectomy [facility] Plan of Care Planned Activity Planned Date Details Comments Source Future Scheduled Test 2020-05-04 00:00:00 INFLUENZA VACCINE [code = INFLUENZA VACCINE] [facility] Future Scheduled Test 2005 00:00:00 65+ PNEUMOCOCCAL V ACCINE (1 of 2 - PCV13) [code = 65+ PNEUMOCOCCAL VACCINE (1 of 2 - PCV13)] [facility] Future Scheduled Test 1990 00:00:00 SHINGLES VACCINES (#1) [code = SHINGLES VACCINES (#1)] [facility] Encounters Start Date/Time End Date/Time Encounter Type Admission Type Attendi [facility] Care Department Encounter ID Source 2019-06-16 12:46:00 2019-06-16 12:46:00 Registered Emergency Room 1 CONSTANTIN CHAN [facility] [id number] [facility] 2019-01-04 13:55:00 2019-01-31 23:59:00 Discharged Recurring [facility] [id number] [facility] 2018-12-07 09:35:00 2019-01-01 23:59:00 Discharged Recurring [facility] [id number] [facility] 2018-11-09 10:45:00 2018-12-01 23:59:00 Discharged Recurring [facility] [id number] [facility] 2018-10-19 08:52:00 2018-11-03 23:59:00 Discharged Recurring [facility] [id number] [facility] 2018-10-28 13:27:00 2018-10-28 13:27:00 Registered Clinic 3 SHERRIE WONG [facility] [id number] [facility] 2018-08-11 14:48:00 2018-08-19 17:38:00 Discharged Inpatient 1 LEANNE BOND [facility] [id number] [facility] 2017-07-15 18:40:00 2017-08-14 05:59:[address] [facility] [id number] [facility] 2017-07-15 13:40:00 2017-08-13 23:59:00 Outpatient Drea Klever [facility]bertmichelle [facility] [id number] 2017-04-13 13:55:00 2017-05-13 04:59:[address] [facility] [id number] [facility] 2017-04-13 08:55:00 2017-05-12 23:59:00 Outpatient Drea Klever robertmichelle [facility] [id number] 2015-12-31 19:05:00 2016-01-01 04:59:[address] [facility] [place] [id number] [facility] [place] 2015-12-31 14:05:00 2015-12-31 23:59:00 Outpatient Cortez Carrillo [facility] [id number] Results Test Description Test Time Test Comments Results Result Comments Source CHEST 2 VIEWS 2019-06-16 14:35:00 [facility] [address] [address] Patient Name: BEN GALLAGHER MR #: [id number] : 1940 Age/Sex: 78/F Req #: [id number] Adm Physician: Ordered by: CONSTANTIN CHAN DO Report #: [id number] Location: ER Room/Bed: Procedure: [id number] DX/CHEST 2 VIEWS Exam Date: 06/16/19 Exam [...] Test Item Bedside Glucose (test code = 11869-8) 192 70-120 Meter ID: [id number]2019-01-25 14:15:[address] [address] Patient Name: BEN GALLAGHER MR #: [id number] : 1940 Age/Sex: 78/F Req #: [id number] Adm Physician: Ordered by: SHERRIE WONG MD Report #: [id number] Location: [facility] Room/Bed: Procedure: [id number] D X/HEEL LT Exam Date: 10/28/18 Exam [...] 17 COPY TO: SHERRIE WONG MD Wound [id number] 08:50:00* Test Item Value Reference Range Interpretation Comments Wound Culture (test code = 6462-6) Organism: ENTEROBACTER CLOACAE [facility] [id number] 11:05:00 [address] [address] Patient Name: BEN GALLAGHER MR #: [id number] : 1940 Age/Sex: 78/F Req #: [id number] Adm Physician: LEANNE BOND MD Ordered by: SAMIR CARLOS MD Report #: [id number] Location: MED/SURG Room/Bed: [facility] Procedure: [id number] D X/FEMUR ONE VIEW LEFT Exam Date: [...] HIP LEFT 2-3 VW (+/- PELVIS)2018-08-14 11:02:00 [address] [place] [address] Patient Name: BEN GALLAGHER MR #: [id number] : 1940 Age/Sex: 78/F Req #: [id number] Adm Physician: LEANNE BOND MD Ordered by: SAMIR CARLOS MD Report #: [id number] Location: MED/SURG Room/Bed: [facility] Procedure: [id number] D X/HIP LEFT 2-3 VW (+/- PELVIS) [...] HIP LEFT 2-3 VW (+/- PELVIS)2018-08-11 12:07:00 [address] [place] [address] Patient Name: BEN GALLAGHER MR #: [id number] : 1940 Age/Sex: 78/F Req #: [id number] Adm Physician: Ordered by: HBAKTI HELLER MD Report #: [id number] Location: ER Room/Bed: Procedure: [id number] DX /HIP LEFT 2-3 VW (+/- PELVIS) [...] on 08/11/2018 12:13 PM Dictated By: YO UMNOZ MD 12 Transcribed By: MISAEL CHAN on 08/11/181212 COPY TO: BHAKTI HELLER MD CHEST SINGLE (PORTABLE)2018-08-11 12:05:00 [place] [address] Patient Name: BEN GALLAGHER MR #: [id number] : 1940 Age/Sex: 78/F Req #: [id number] Adm Physician: Ordered by: BHAKTI HELLER MD Report #: [id number] Location: ER Room/Bed: Procedure: [id number] DX /CHEST SINGLE (PORTABLE) Exam Date: 08/11/18 [...] COPY TO: BHAKTI HELLER MD HEMATOLOGY 2017-08-05 19:02:0037.5[id number] 19:02:0012.3[facility] [id number] 18:59:0035.8[facility] CenterRzhrzhmefGVFYNFLEDJ3027-12-80 18:59:0011.5[facility] CenterPubctjpsdHRAWBKKIUM4455-13-71 18:37:0032.0[facility] CenterIqkzkjwksADODUZLUBX8458-19-18 18:37:0010.6[facility]
--- OUTSIDE RECORDS SUMMARY | 2020-02-24 11:32 | XMS REPORT | Continuity of Care Document ---
Author Author [employer] Address Unknown Phone Unavailable Care Team Providers Care Medical Historian Name Role Phone [facility] Lit Building Directory Information Exchange Unavailable Un available Problems Problem Status Onset Date Classification Date Reported Comments Source ARANESP 100 MCG / [id number] / CPT= 54208 / D Active 07/06/2017 [facility] FERAHEME 510MG / 42454 / CUL=[id number] / DX: Active 04/09/2017 [facility] M25.561 - PAIN IN RIGHT KNEE A ctive 12/31/2015 [facility] [place] Chronic kidney disease (disorder) Resolved Problem [facility] Diabetes mellitus (disorder) R esolved Problem [facility] Hypertensive disorder, systemic arterial (disorder) Resolved Problem 08/16/2017 [facility] Iron deficiency anemia (disorder) Resolved Problem [facility] Arthritis (disorder) Resolved Problem 08/16/2017 [facility] ANEMIA IN CHRONIC KIDNEY DISEASE Active [facility] CHRONIC KIDNEY DISEASE, UNSPECIFIED Active [facility] CHRONIC KIDNEY DISEASE, STAGE 4 (SEVERE) Active [facility] Medications Medication Details Route Status Patient Instructions Ordering Provider Order Date Source darbepoetin ryan Notes: (Same as: Aranesp) Non- Formulary Inactive 07/23/2017 [facility] darbepoetin ryan Notes: (Same as: Aranesp) Non- Formulary Inactive 07/16/2017 [facility] darbepoetin ryan Notes: (Same as: Aranesp) Non- Formulary No Longer Active 07/15/2017 [facility] Feraheme + sodium chloride 0.9% 100 mL I NJ (for IV set) 100 mL Notes: USE IMMEDIATELY - PT IS ON CAMPUS ALREADY Same as: Feraheme Non- Formulary DO NOT administer undiluted IVP. This agent is reserved for use by Nephrologists in patients who are unable to tolerate oral therapy. MEDICATION WASTE Product Size: 510 mg Product Wasted: ___ mg Inactive 05/05/2017 [facility] Feraheme + sodium chloride 0.9% 100 mL I NJ (for IV set) 100 mL Notes: Same as: Feraheme Non-Formulary DO NOT administer undiluted IVP. This agent is reserved for use by Nephrologists in patients who are unable to tolerate oral therapy. MEDICATION WASTE Product Size: 510 mg Product Wasted: ___ mg Inactive 04/20/2017 [facility] donepezil 10 mg, PO, Bedtime, 0 Refill(s) Active 04/13/2017 [facility] carvedilol 25 MG Oral Tablet [Coreg] 25 mg = 1 tab, PO, BID, # 60 tab, 0 Refill(s) Active 04/13/2017 [facility] Insulin Glargine 100 UNT/ML Injectable S olution [Lantus] 24 unit, SUB-Q, Bedtime, 0 Refill(s) Active 04/13/2017 [facility] Diphenhydramine Hydrochloride 25 MG Oral Capsule [Benadryl] 25 mg = 1 cap, PO, Bedtime, 0 Refill(s) Active 04/13/2017 [facility] Aspirin 81 mg, PO, Daily, 0 Re fill(s) Active 04/13/2017 [facility] Iron Chews 65 mg, PO, BID, 0 R efill(s) Active 04/13/2017 [facility] pravastatin 20 mg oral tablet 20 mg = 1 tab, PO, Bedtime, # 30 tab, 0 Refill(s) Active 04/13/2017 [facility] NovoLog 8 unit, SUB-Q, Daily, 0 Refill(s) Active 04/13/2017 [facility] Amlodipine 10 mg, PO, Daily, 0 Refill(s) Active 04/13/2017 [facility] Feraheme + sodium chloride 0.9% 100 mL I NJ (for IV set) 100 mL Notes: Same as: Feraheme Non-Formulary DO NOT administer undiluted IVP. This agent is reserved for use by Nephrologists in patients who are unable to tolerate oral therapy. MEDICATION WASTE Product Size: 510 mg Product Wasted: ___ mg Inactive 04/13/2017 [facility] Allergies, Adverse Reactions, Alerts No Known Medication Allergies Immunizations No Data Provided for This Section Results Order Name Results Value Reference Range Date Interpretation Comments Source HEMATOLOGY Hct 37.5 36.0 - 48.0 08/05/2017 [facility] HEMATOLOGY Hgb 12.3 12.0 - 16.0 08/05/2017 [facility] HEMATOLOGY Hct 35.8 36.0 - 48.0 07/29/2017 [facility] HEMATOLOGY Hgb 11.5 12.0 - 16.0 07/29/2017 [facility] HEMATOLOGY Hct 32.0 36.0 - 48.0 07/22/2017 [facility] HEMATOLOGY Hgb 10.6 12.0 - 16.0 07/22/2017 [facility] Pathology Reports No Data Provided for [...] Date Comments Source Heart Rate 60 07/22/2017 [facility] Respitory Rate 18 07/22/2017 [facility] Temperature Oral (F) 97.9 F 07/22/2017 [facility] Systolic (mm Hg) 122 07/22/2017 [facility] Diastolic (mm Hg) 73 07/22/2017 [facility] Height 172.72 cm 07/15/2017 [facility] Weight 76.818 07/15/2017 [facility] BMI Calculated 25.75 07/15/2017 [facility] Heart Rate 61 07/15/2017 [facility] Temperature Oral (F) 97.9 F 07/15/2017 [facility] Respitory Rate 18 07/15/2017 [facility] Systolic (mm Hg) 123 07/15/2017 [facility] Diastolic (mm Hg) 75 07/15/2017 [facility] Systolic (mm Hg) 164 05/05/2017 [facility] Diastolic (mm Hg) 75 05/05/2017 [facility] Respitory Rate 16 05/05/2017 [facility] Heart Rate 58 05/05/2017 [facility] Temperature Oral (F) 97.8 F 05/05/2017 [facility] Respitory Rate 18 04/13/2017 [facility] Systolic (mm Hg) 156 04/13/2017 [facility] Diastolic (mm Hg) 74 04/13/2017 [facility] Heart Rate 64 04/13/2017 [facility] Temperature Oral (F) 98.2 F 04/13/2017 [facility] Weight 79 0 04/12/2017 [facility] BMI Calculated 27.34 04/12/2017 [facility] Height 170 cm 04/12/2017 [facility] Encounters Location Location Details Encounter Type Encounter Number Reason For Visit Attending Provider ADM Date DC Date Status Source [facility] [place] Out[facility] Di[facility] Services [id number] Cortez Carrillo Jr 12/31/2015 01/01/2016 ABNER Amaya [facility] Rec[facility]ring [id number] Dimple Drea 04/13/2017 05/13/2017 [facility] Recurring [id number] [place] Josesitojose 07/15/2017 08/14/2017 [facility] Procedures Procedure Code Date Perfomer Comments Source Bladder surveillance - check cystoscopy [id number] [facility] Hip replacement [id number] [facility] Hysterectomy [id number] [facility] st Parathyroidectomy [id number] [facility] Assessment and Plan No Data Provided for This Section Plan of Care No Data Provided for This Section Social History Social History Date Source Social History TypeResponse Smoking Status Never smoker; Ready to change: Yes; Concerns about tobacco use in household: Yes; Exposure to Tobacco Smoke None; Cigarette Smoking Last 365 Days No; Reg Smoking Cessation Counseling Yes 07/16/2017 [facility] No data available for this section 01/01/2016 ABNER Amaya Family History No Data Provided for This Section Advance Directives No Data Provided for This Section Functional Status No Data Provided for This Section
--- OUTSIDE RECORDS SUMMARY | 2020-02-24 11:32 | XMS REPORT | Clinical Summary ---
Author Author [employer] Address Unknown Phone Unavailable Care Team Providers Care Biometrician Name Role Phone Chris Hartmann MD PCP [...] MEDICARE UNITED xxxxxxxxx 2017-P HEALTHCARE resent MEDICARE [phone] Advance Directives For more information, please contact: [phone] Patient Event Set Up Specialist Explanation Type Date Recorded Advance Directives, 11/08/2017 2:07 PM Living Will and Medical Power of Mental Telepathist
[2020-02-24] MEDS ORDERED: FUROSEMIDE INJ 10 MG/ML 4 ML VIAL ONE (11:36)
[2020-02-24] MEDS: ALBUTEROL SULFATE HFA 8GM INHALATION AEROSOL INH PRN (11:55)
--- NOTE | 2020-02-24 11:56 | Diagnostic Imaging Report ---
Examination: Single AP view of the chest. COMPARISON: Chest 2 views 06/16/2019 INDICATION: Shortness of breath and cough IMPRESSION: 1. Lines and Tubes: None 2. Lungs are well-inflated. Prominence/coarsening of the interstitial markings predominantly in the lung bases again seen, however, slightly increased since the prior exam. Mild prominence of the interstitial markings is also seen in the upper lungs. No definite consolidation. Findings may represent chronic lung changes with superimposed edema or viral infection. Stable blunting of the right lateral costophrenic sulcus, which may reflect small volume pleural effusion or pleural thickening. 3. Mild enlargement of the cardiac silhouette Central pulmonary venous congestion. 4. No acute bony abnormalities. Signed by: Dr. Sulaiman Peñaloza M.D. on 02/24/2020 11:53 AM
[2020-02-24 12:04] LABS: PARTIAL THROMBOPLASTIN TIME 21.9 seconds (23.8-35.5)
[2020-02-24 12:10] LABS: INR 1.04; PROTHROMBIN TIME 14.2 seconds (11.9-14.5)
[2020-02-24 12:16] LABS: ALBUMIN 2.8 g/dL (3.5-5.0); ALBUMIN/GLOBULIN RATIO 0.6 (0.8-2.0); ANION GAP 25.2 mmol/L (8-16); CALCIUM 10.6 mg/dL (8.4-10.2); CREATININE, SERUM 8.4 mg/dL (0.57-1.11); MAGNESIUM 2.4 MG/DL (1.3-2.1); POTASSIUM 4.2 mmol/L (3.5-5.1)
[2020-02-24 12:24] LABS: CREATINE KINASE MB 1.9 ng/mL (0-5.0)
--- NOTE | 2020-02-24 12:24 | NUR ---
PT ARRIVED TO ROOM 184. PT AWAKE, ALERT, ORIENTED X3, PRODUCTIVE COUGH NOTED, PT WEARING MASK. PT IN STABLE CONDITION AT THIS TIME. WILL CONTINUE TO MONITOR.
[2020-02-24] MEDS: DOXYCYCLINE 100MG/NS 100ML 100 ML IV SCH ×2 (12:27→23:20)
[2020-02-24 12:30] VITALS: BP 110/56
[2020-02-24 12:31] VITALS: BP 110/56
[2020-02-24] MEDS: INSULIN LISPRO 100 UNIT/1 ML 3ML VIAL SQ SCH ×3 (12:35→21:00)
[2020-02-24] MEDS: CEFTRIAXONE SOD 1 GM/NS 50 ML 50 ML IV SCH (14:10)
[2020-02-24] MEDS ORDERED: SODIUM CHLORIDE 0.9% 1000ML 1,000 ML ONE (14:39)
--- NOTE | 2020-02-24 15:07 | Consultation ---
DATE OF CONSULTATION: REASON FOR CONSULTATION: Shortness of breath and cough. HISTORY OF PRESENT ILLNESS: This patient who is a 79-year-old, who have history of end-stage renal disease, on hemodialysis. She has been sick for 2 days with fever, chills, and cough. She has had some productive cough, started 3 days ago, getting progressively worse. She was on dialysis and she was sent here. The patient was currently lying in bed comfortably because we are in the middle of COVID-19 outbreak. The patient is being admitted to rule out COVID-19. PAST MEDICAL HISTORY: Hypertension, diabetes mellitus with neuropathy, end-stage disease on dialysis. She has pneumonia before, the patient is on dialysis, history of GERD, history of right hip fracture with replacement, hysterectomy, parathyroidectomy, right total knee replacement, cataract surgeries, bladder suspension, hysterectomy, IV access for dialysis. ALLERGIES: NKA. SOCIAL HISTORY: There is currently no smoking, drug abuse, or alcohol abuse. She used to smoke, but quit a year or so ago. REVIEW OF SYSTEMS: HEENT: There is no headache, visual changes, or hearing changes. GI: There is no nausea. No vomiting. No diarrhea. CARDIAC: There is no arrhythmia. NEURO: No seizure activity. SKIN: There is no rash. PHYSICAL EXAMINATION: GENERAL: She is currently alert, oriented, does not seem to be in acute distress. VITAL SIGNS: Stable, currently afebrile. HEENT: She is not icteric. NECK: Supple. CHEST: Few rhonchi bilateral. COR: S1 and S2. No S3, S4, or murmur. ABDOMEN: Soft. IMPRESSION: 1. Pneumonia, community acquired. Agree with Rocephin. Agree with doxycycline. 2. End-stage disease, on dialysis. 3. We will check the patient COVID-19. We will keep her on droplet aspiration for the time being. If that is negative, could be transferred out. We will follow. MD LYN Paz/MODL /[id number]
[2020-02-24 15:38] LABS: PLATELET ESTIMATE SLIGHTLY DECREASED; PLATELET MORPHOLOGY COMMENT NORMAL; RBC MORPHOLOGY COMMENT NORMAL
[2020-02-24 15:58] VITALS: BP 117/67
--- NOTE | 2020-02-24 16:49 | Consultation ---
DATE OF CONSULTATION: Pulmonary Critical Care Consultation CHIEF COMPLAINT: Dyspnea and history of end-stage renal disease. HISTORY OF PRESENT ILLNESS: The patient is a 79-year-old woman. She has end-stage renal disease. She apparently missed a session of dialysis. She felt more short of breath when she went to dialysis today. This concerning the dialysis nursing staff and they sent her to the ER. She was subsequently admitted and is receiving dialysis in the hospital. She denies any fever. She has minimal cough. She is not having any chest pain. PAST SURGICAL HISTORY: Status post dialysis access graft. PAST MEDICAL HISTORY: 1. Diabetes. 2. End-stage renal disease. 3. Gastroesophageal reflux. ALLERGIES: THE PATIENT HAS NO KNOWN DRUG ALLERGIES. SOCIAL HISTORY: The patient is not an active smoker. She is not an active drinker. FAMILY HISTORY: Family history is noncontributory. REVIEW OF SYSTEMS: The patient denies any fever. She has no headache. She has no neck pain. She is not complaining of any chest pain. She does not have any back pain. She does have some cough and shortness of breath. She denies abdominal pain. There is no nausea or vomiting. PHYSICAL EXAMINATION: VITAL SIGNS: The blood pressure is 110/56 and the saturation is 97%. Pulse is 78. HEENT: Shows no facial swelling or erythema. CARDIAC: Reveals regular rate and rhythm with normal S1 and S2. LUNGS: Auscultation of lungs reveals clear breath sounds bilaterally. There is no wheezing. ABDOMEN: Soft and nontender. There is no rebound or guarding. EXTREMITIES: Shows no leg edema or calf tenderness. There is no cyanosis or clubbing. SKIN: Shows no rashes. NEUROLOGICAL: Shows no focal abnormalities. LABORATORY DATA: White blood cell count is 13.98, hemoglobin is 8.9, and the platelet count is 104. BUN to creatinine ratio is 78 to 8.4. The carbon dioxide is 21. RADIOGRAPHIC DATA: Chest x-ray shows increased interstitial markings. There is mild enlargement of the cardiac silhouette. IMPRESSION: 1. Fluid overload secondary to end-stage renal disease. 2. Diabetes. 3. Hypertension. 4. End-stage renal disease. PLAN: 1. Complete dialysis. 2. Continue current antibiotics. 3. Await culture results and COVID-19 testing. MD PARISH Portillo/PINGL /[id number]
[2020-02-24] MEDS ORDERED: LOSARTAN POTASS50 MG PO (16:55)
[2020-02-24] MEDS ORDERED: RENA-VITE TABL0.8 MG PO (16:55)
[2020-02-24] MEDS ORDERED: HUMALOG100 UNIT/1 SQ (16:55)
[2020-02-24] MEDS ORDERED: VELPHORO500 MG PO (16:55)
[2020-02-24] MEDS ORDERED: LANTUS 3ML100 UNITS/ SQ (16:55)
[2020-02-24] MEDS ORDERED: prevagen PO (17:01)
[2020-02-24] MEDS ORDERED: HYDRALAZINE HCL 20 MG/ML VIAL IV PRN (18:00)
[2020-02-24] MEDS ORDERED: MELATONIN 5 MG TABLET PO PRN (18:00)
[2020-02-24] MEDS ORDERED: BENZONATATE 100 MG CAP PO PRN (18:00)
[2020-02-24] MEDS ORDERED: ACETAMINOPHEN 325 MG TAB PO PRN (18:00)
[2020-02-24] MEDS ORDERED: TRAMADOL HCL 50 MG TAB PO PRN (18:00)
[2020-02-24] MEDS ORDERED: ONDANSETRON HCL INJ 2MG/ML 2ML 2 MG/ML VIAL IV PRN (18:00)
--- NOTE | 2020-02-24 18:11 | NUR ---
report given to FRANKLIN Chavez for pt being transferred to room 285. pt will be transferred today after shift change.
--- NOTE | 2020-02-24 19:03 | NUR ---
RECEIVED REPORT. RECEIVED PT LAYING SEMI FOWLERS IN BED, AAOX3, RR EVEN AND NON-LABORED, PRODUCTIVE COUGH NOTED. (L) UPPER ARM FISTULA WITH DRESSING CDI, THRILL AND BRUIT NOTED. LEFT PT LAYING SEMI FOWLERS IN BED, BED IN LOW LOCKED POSITION, SIDE RAILS UPX2, CALL LIGHT AND PHONE WITHIN REACH.
[2020-02-24 19:10] VITALS: BP 120/62
--- NOTE | 2020-02-24 19:16 | NUR ---
REPORT CALLED TO Annie HEREDIA RN FOR PATIENT TRANSFERRING TO ROOM 285.
[2020-02-24 19:33] VITALS: BP 120/62
--- NOTE | 2020-02-24 20:03 | NUR ---
PT TRANSFERRED BY HOSPITAL BED TO ROOM 285. PT IS AAOX3, RR EVEN AND NON-LABORED, ON ROOM AIR. PT IN STABLE CONDITION. NOTIFIED SIZE TESTER OF PATIENT ROOM TRANSFER. ALSO CALLED TO REPORT DIALYSIS RESULTS OF 2L REMOVED TO RECEIVING NURSE.
--- NOTE | 2020-02-24 20:05 | NUR ---
RECEIVED PATIENT FROM DOWNSTAIRS. PATIENT IS AWAKE AND TALKING. NO SIGNS OF DISTRESS NOTED IN PATIENT. PATIENT IS RESTING COMFORTABLY IN THE BED. BED IS IN THE LOWEST POSITION AND CALL LIGHT IS WITHIN REACH. WILL CONTINUE TO MONITOR PATIENT.
[2020-02-24 20:39] VITALS: BP 133/70
[2020-02-24] MEDS: PRAVASTATIN 20 MG TAB PO SCH (21:00)
[2020-02-24] MEDS: DONEPEZIL HCL 5 MG TAB PO SCH (21:00)
[2020-02-24] MEDS: INSULIN GLARGINE 100 UNITS/ML VIAL SQ SCH (21:01)
--- NOTE | 2020-02-24 21:09 | NUR ---
PATIENT'S TEMPERATURE HAS BEEN RECHECKED AND FOUND TO BE 98.9. WILL CONTINUE TO MONITOR PATIENTS TEMPERATURE.
[2020-02-24] MEDS ORDERED: SODIUM CHLORIDE 0.9% 250ML 250 ML ONE (23:05)
[2020-02-25] VITALS (8 sets, daily range): BP systolic 119–142; BP diastolic 51–91
[2020-02-25 04:22] LABS: CREATINE KINASE MB 3.4 ng/mL (0-5.0)
--- NOTE | 2020-02-25 06:43 | NUR ---
REPORT GIVEN TO DAY NURSE. PATIENT IS RESTING COMFORTABLY IN THE BED. NO DISTRESS NOTED.
[2020-02-25 06:49] LABS: BASOPHILS # (AUTO) 0.1 (0.0-0.1); BASOPHILS % 0.6 % (0.0-1.0); EOSINOPHILS # (AUTO) 0.5 (0.0-0.4); EOSINOPHILS % 4.2 % (0.0-6.0); HEMATOCRIT 28.8 % (34.2-44.1); HEMOGLOBIN 8.9 g/dL (12.0-16.0); LYMPHOCYTES # (AUTO) 1.2 (1.0-3.2); LYMPHOCYTES % 10.2 % (18.0-39.1); MEAN CORPUSCULAR HEMOGLOBIN 32.2 pg (28-32); MEAN CORPUSCULAR HGB CONC 30.9 g/dL (31-35); MEAN CORPUSCULAR VOLUME 104.3 fL (81-99); MONOCYTES # (AUTO) 0.8 (0.2-0.8); NEUTROPHILS # (AUTO) 9.1 (2.1-6.9); NEUTROPHILS % 76.3 % (38.7-80.0); PLATELET COUNT 125 x10e3/uL (140-360); RED BLOOD COUNT 2.76 x10e6/uL (3.6-5.1); RED CELL DISTRIBUTION WIDTH 15.4 % (11.7-14.4)
--- NOTE | 2020-02-25 07:00 | NUR ---
Received bedside shift report from off going nurse. Patient in stable condition, no s/s of distress noted. no pain voiced. Telemetry applied and working. Bed in lowest position and working. Call light within reach.
[2020-02-25 07:53] LABS: ALBUMIN 2.7 g/dL (3.5-5.0); ALBUMIN/GLOBULIN RATIO 0.6 (0.8-2.0); ANION GAP 20.8 mmol/L (8-16); CALCIUM 10.2 mg/dL (8.4-10.2); CREATININE, SERUM 4.66 mg/dL (0.57-1.11); POTASSIUM 3.8 mmol/L (3.5-5.1)
[2020-02-25] MEDS: ASPIRIN 81 MG ENTERIC COATED PO SCH (08:37)
[2020-02-25] MEDS: LOSARTAN POTASSIUM 25 MG TAB PO SCH (08:38)
[2020-02-25] MEDS: CARVEDILOL 12.5 MG TAB PO SCH (08:38)
[2020-02-25] MEDS: INSULIN LISPRO 100 UNIT/1 ML 3ML VIAL SQ SCH ×4 (10:13→20:49)
[2020-02-25] MEDS: DOXYCYCLINE 100MG/NS 100ML 100 ML IV SCH (10:40)
[2020-02-25] MEDS: LORATADINE 10 MG TAB PO SCH (10:58)
[2020-02-25] MEDS ORDERED: CEFTRIAXONE SOD 1 GRAM/0.9% SOD CHL 50ML BAG IV SCH (11:00)
[2020-02-25 11:18] LABS: PLATELET MORPHOLOGY COMMENT NORMAL; RBC MORPHOLOGY COMMENT NORMAL
[2020-02-25 11:19] LABS: PLATELET ESTIMATE SLIGHTLY DECREASED
[2020-02-25] MEDS: CEFTRIAXONE SOD 1 GM/NS 50 ML 50 ML IV SCH (12:06)
--- NOTE | 2020-02-25 18:02 | Progress Note ---
DATE: SUBJECTIVE: Ms. Joy is feeling better. She states she has a rough night. She is still not feeling well in general, but there are no specific complaints. PHYSICAL EXAMINATION: GENERAL: Currently alert and oriented. Does not seem to be in acute distress. VITAL SIGNS: Stable, currently afebrile. HEENT: She is not icteric. NECK: Supple. CHEST: Clear. HEART: S1 and S2. No S3, S4, or murmurs. ABDOMEN: Soft. Bowel sounds present. No tenderness. EXTREMITIES: No edema. SKIN: No rash. LABORATORY DATA: Her white count came down to 11.86, hemoglobin 8.9. Her COVID-19 was negative. IMPRESSION: 1. Community-acquired pneumonia. 2. End-stage renal disease, on hemodialysis. 3. Fluid overload. 4. Diabetes mellitus. 5. The patient is currently on Rocephin and doxycycline. She said she is feeling a bit nauseous, could be due to doxycycline, I am going to discontinue that. 6. We will recheck chest x-ray tomorrow. 7. Further recommendations to follow. MD LYN Paz/TIKI /[id number]
[2020-02-25] MEDS ORDERED: GUAIFENESIN/DEXTROMETHORPHAN LIQD 5 ML UDC NG PRN (18:45)
--- NOTE | 2020-02-25 18:55 | NUR ---
Bedside nursing report completed with morning nurse. Pt alert and oriented to name, lying in bed HOB 60 degrees. Denies pain at this time. Call light within reach. Bed low and locked.
--- NOTE | 2020-02-25 18:57 | NUR ---
Completed bedside shift report and rounding with on coming night nurse. Patient in stable condition, no s/s of distress noted. No pain voiced. Telemetry applied. Bed alarm applied and working. Bed in lowest position and locked. Call light within reach.
--- NOTE | 2020-02-25 19:37 | Progress Note ---
DATE: SUBJECTIVE: The patient reports some cough. She has less dyspnea. She notes some postnasal drainage. She reports some acid reflux. PHYSICAL EXAMINATION: VITAL SIGNS: Blood pressure is 133/78, saturation is 94%. CARDIAC: Regular rate and rhythm with normal S1 and S2. LUNGS: Auscultation of the lungs shows clear breath sounds bilaterally. ABDOMEN: Soft, nontender. There is no rebound or guarding. EXTREMITIES: No leg edema or calf tenderness. There is no cyanosis or clubbing. SKIN: No rashes. IMPRESSION: 1. End-stage renal disease. 2. Persistent cough probably secondary to postnasal drainage in acid reflux. 3. Community-acquired pneumonia. 4. Diabetes. PLAN: 1. Continue antibiotics. 2. Dialysis as scheduled. 3. Begin Pepcid to control acid reflux and nasal sprays for cough. Ming Lay MD [facility]/PINGL /[id number]
[2020-02-25] MEDS ORDERED: ONDANSETRON HCL 4 MG ORAL DISINTEGRATING TAB PO PRN (19:45)
[2020-02-25] MEDS: PRAVASTATIN 20 MG TAB PO SCH (20:46)
[2020-02-25] MEDS: DONEPEZIL HCL 5 MG TAB PO SCH (20:46)
[2020-02-25] MEDS: INSULIN GLARGINE 100 UNITS/ML VIAL SQ SCH (20:49)
[2020-02-26] VITALS (8 sets, daily range): BP systolic 132–147; BP diastolic 64–98
[2020-02-26] MEDS: DOXYCYCLINE 100MG/NS 100ML 100 ML IV SCH (00:15)
[2020-02-26 06:04] LABS: BASOPHILS # (AUTO) 0.1 (0.0-0.1); BASOPHILS % 0.7 % (0.0-1.0); EOSINOPHILS # (AUTO) 0.7 (0.0-0.4); EOSINOPHILS % 6.2 % (0.0-6.0); HEMATOCRIT 27.3 % (34.2-44.1); HEMOGLOBIN 8.6 g/dL (12.0-16.0); LYMPHOCYTES # (AUTO) 1.5 (1.0-3.2); LYMPHOCYTES % 13.9 % (18.0-39.1); MEAN CORPUSCULAR HEMOGLOBIN 33.1 pg (28-32); MEAN CORPUSCULAR HGB CONC 31.5 g/dL (31-35); MONOCYTES # (AUTO) 0.8 (0.2-0.8); MONOCYTES % 6.9 % (4.4-11.3); NEUTROPHILS # (AUTO) 7.7 (2.1-6.9); NEUTROPHILS % 70.2 % (38.7-80.0); PLATELET COUNT 129 x10e3/uL (140-360); RED CELL DISTRIBUTION WIDTH 15.3 % (11.7-14.4)
[2020-02-26 06:50] LABS: ALBUMIN 2.5 g/dL (3.5-5.0); ALBUMIN/GLOBULIN RATIO 0.6 (0.8-2.0); ANION GAP 20.8 mmol/L (8-16); CALCIUM 10.1 mg/dL (8.4-10.2); CREATININE, SERUM 6.71 mg/dL (0.57-1.11); MAGNESIUM 2.1 MG/DL (1.3-2.1); POTASSIUM 3.8 mmol/L (3.5-5.1)
[2020-02-26] MEDS: INSULIN LISPRO 100 UNIT/1 ML 3ML VIAL SQ SCH ×4 (07:30→21:00)
[2020-02-26] MEDS: ALBUTEROL SULFATE HFA 8GM INHALATION AEROSOL INH PRN (07:30)
[2020-02-26] MEDS: FLUTICASONE PROPIONATE NASAL SPRAY NS SCH ×2 (08:42→16:24)
[2020-02-26] MEDS: LORATADINE 10 MG TAB PO SCH (08:42)
[2020-02-26] MEDS: ASPIRIN 81 MG ENTERIC COATED PO SCH (08:42)
[2020-02-26] MEDS: CARVEDILOL 12.5 MG TAB PO SCH (08:43)
[2020-02-26] MEDS: LOSARTAN POTASSIUM 25 MG TAB PO SCH (08:46)
--- NOTE | 2020-02-26 09:36 | Diagnostic Imaging Report ---
Examination: Single AP view of the chest. COMPARISON: AP chest 02/24/2020 INDICATION: End-stage renal disease, pneumonia IMPRESSION: 1. Lines and Tubes: None 2. Lungs are well-inflated. Bilateral patchy airspace opacities, predominantly seen in the right mid lung and bilateral lower lungs, which are more prominent than on prior exam, suggesting multifocal pneumonia. Stable prominence of the pulmonary interstitium. 3. Mild enlargement of the cardiac silhouette. Central pulmonary venous congestion. Enlarged pulmonary arteries 4. No acute bony abnormalities. Signed by: Dr. Sulaiman Peñaloza M.D. on 02/26/2020 9:32 AM
--- NOTE | 2020-02-26 09:50 | Progress Note ---
DATE: SUBJECTIVE: The patient was seen and evaluated. Available labs and notes reviewed. Discussed with Dr. Greco. REVIEW OF SYSTEMS: Complains of cough and shortness of breath. No loss of smell or taste. No nausea, no vomiting, no fever, no chills, started to have some headache. PHYSICAL EXAMINATION: VITAL SIGNS: Temperature is 98.8, pulse is 94, respiration 15, blood pressure 147/81. Current O2 saturation is 94%. GENERAL: Alert and oriented, no acute distress, few cough while I was examining the patient. CV: S1-S2. CHEST: Equal expansion. Decreased breath sounds. No acute distress. ABDOMEN: Soft, obese, and nontender. HEENT: Moist. No pallor. No JVD. EXTREMITIES: The left upper extremity AV fistula with a positive thrill. MEDICATIONS: Reviewed from Infectious Disease point of view, the patient is on Rocephin and doxycycline. LABORATORY STUDIES: White count of 10.96, hemoglobin 8.6, platelet 129, which is improving from 104 on admission. Sodium 142, potassium 3.8, and creatinine 6.71. The patient is on dialysis. MICROBIOLOGY: Blood cultures negative from 02/23 with sputum showing gram-positive on Gram stain with usual respiratory nadiya present on culture so far. RADIOLOGY STUDIES: Chest x-ray noted prominence/coarsening of the interstitial markings predominantly in the lung bases again seen, however, slightly increased since the prior exam. No definite consolidation, possible chronic lung changes with superimposed edema or may be a viral infection, possible small volume pleural effusion on the right central pulmonary venous congestion, no acute bony abnormalities. Serology; coronavirus PCR 02/24/2020 is negative. Hepatitis panel was pending. ASSESSMENT AND PLAN: 1. Community-acquired pneumonia. 2. End-stage renal disease. 3. Fluid overload. 4. Diabetes. 5. Obesity. The patient is currently on Rocephin and doxycycline, we will stop doxycycline as planned. Follow with a chest x-ray from today, which I do not see any, we will order one. Continue to monitor the patient clinically and follow with the labs. Please refer to chart for more information. Dictated by David Khoury PA-C (Al) Crystal Greco MD /MODL /[id number]
[2020-02-26] MEDS: CEFTRIAXONE SOD 1 GM/NS 50 ML 50 ML IV SCH (11:48)
--- NOTE | 2020-02-26 16:32 | NUR ---
Nutrition Screen Note RD Recommendation for Physician: -Continue current diet as ordered, diet texture per AIRPORT SALES AGENT Plan of Care: RD following, monitoring for tolerance and adequacy Nutrition reason for involvement: Nutrition Risk Trigger MST Primary Diagnose(s): community acquired PNA PMH: ESRD on HD, fluid overload, DM, obesity Ht: 67in Wt: 165.04lb BMI: 25.8kg/m2 IBW: 135lb +/- 10% RD Assessment: (02/25) Chart reviewed. Labs and meds reviewed. 79yo F, who was admitted for PNA. HbA1c at 5.9%. Visited pt in the room. Pt reported good appetite with 100% observed lunch intake. Pt denied any nausea or vomiting. LBM 02/25. Pt reported some recent weight gain due to physical inactivity. AIRPORT SALES AGENT evaluated pt and recommended MBS to rule out aspiration. Will continue to monitor and follow. Current Diet: renal diabetic diet Malnutrition Evaluation (02/26/2020) The patient does not meet criteria for a specified degree of malnutrition at this time. Will re-evaluate at follow-up as appropriate. Energy intake: Adequate PO intake reported Weight loss: No weight loss reported Fat loss: no loss identified Muscle loss: no loss identified Supporting Evidence: Fluid accumulation: no accumulation identified Functional Status: reduced per patient Diet Education Needs Assessment: Diet education not indicated. Nutrition Care Level: low Signed: Anya Powell, MS, RD, LD
--- NOTE | 2020-02-26 19:00 | NUR ---
Patient visited in room during nursing rounds. Patient alert and oriented x3. Pt on bedrest at this time. Pt just had a bowel movement in diaper and pt was cleaned and changed. Patient aware she is scheduled for an MBS and Hemodialysis tomorrow (02/27/20). Bed alarm active. Call srivastava within reach.
[2020-02-26] MEDS: INSULIN GLARGINE 100 UNITS/ML VIAL SQ SCH (21:00)
[2020-02-26] MEDS: DONEPEZIL HCL 5 MG TAB PO SCH (21:05)
[2020-02-26] MEDS: PRAVASTATIN 20 MG TAB PO SCH (21:05)
[2020-02-27] VITALS (8 sets, daily range): BP systolic 130–167; BP diastolic 66–77
[2020-02-27 05:41] LABS: BASOPHILS # (AUTO) 0.1 (0.0-0.1); BASOPHILS % 0.8 % (0.0-1.0); EOSINOPHILS # (AUTO) 0.8 (0.0-0.4); EOSINOPHILS % 7.1 % (0.0-6.0); HEMOGLOBIN 8.8 g/dL (12.0-16.0); LYMPHOCYTES # (AUTO) 1.4 (1.0-3.2); LYMPHOCYTES % 12.7 % (18.0-39.1); MEAN CORPUSCULAR HEMOGLOBIN 32.6 pg (28-32); MEAN CORPUSCULAR HGB CONC 31.4 g/dL (31-35); MEAN CORPUSCULAR VOLUME 103.7 fL (81-99); MONOCYTES # (AUTO) 0.6 (0.2-0.8); MONOCYTES % 5.9 % (4.4-11.3); NEUTROPHILS # (AUTO) 7.8 (2.1-6.9); PLATELET COUNT 142 x10e3/uL (140-360); RED CELL DISTRIBUTION WIDTH 15.2 % (11.7-14.4)
[2020-02-27 06:09] LABS: ALBUMIN 2.5 g/dL (3.5-5.0); ALBUMIN/GLOBULIN RATIO 0.6 (0.8-2.0); ANION GAP 25.2 mmol/L (8-16); CALCIUM 9.6 mg/dL (8.4-10.2); CREATININE, SERUM 8.22 mg/dL (0.57-1.11); MAGNESIUM 2.2 MG/DL (1.3-2.1); POTASSIUM 4.2 mmol/L (3.5-5.1)
--- NOTE | 2020-02-27 06:52 | NUR ---
Received bedside shift report from off going nurse. Patient is resting in bed, no s/s of distress noted at this time. Call light within reach. Bed in the lowest position. Bed alarm on.
[2020-02-27] MEDS: INSULIN LISPRO 100 UNIT/1 ML 3ML VIAL SQ SCH ×4 (07:30→21:00)
[2020-02-27] MEDS: ALBUTEROL SULFATE HFA 8GM INHALATION AEROSOL INH PRN (07:40)
[2020-02-27] MEDS: LORATADINE 10 MG TAB PO SCH (08:09)
[2020-02-27] MEDS: ASPIRIN 81 MG ENTERIC COATED PO SCH (08:09)
[2020-02-27] MEDS: FLUTICASONE PROPIONATE NASAL SPRAY NS SCH ×2 (08:09→16:04)
[2020-02-27] MEDS: LOSARTAN POTASSIUM 25 MG TAB PO SCH (09:00)
[2020-02-27] MEDS: CARVEDILOL 12.5 MG TAB PO SCH (09:00)
--- NOTE | 2020-02-27 10:12 | Diagnostic Imaging Report ---
Modified Barium Swallow: Clinical History: Aspiration Comparison: None Fluoro time in minutes: 1.9 Radiation dose: 8.28 mGy air Kerma. Report: The patient ingested barium with a speech pathologist in attendance. Impression: A full report from speech pathology will follow. Signed by: Spenser Sanabria MD on 02/27/2020 10:08 AM
[2020-02-27] MEDS: CEFTRIAXONE SOD 1 GM/NS 50 ML 50 ML IV SCH (11:26)
[2020-02-27] MEDS ORDERED: PANTOPRAZOLE SOD 40 MG TABEC PO ONE (11:30)
--- NOTE | 2020-02-27 11:54 | Progress Note ---
DATE: SUBJECTIVE: The patient is seen and evaluated. Available labs and notes reviewed. Discussed with Dr. Greco. REVIEW OF SYSTEMS: Still complains of cough off and on, but no shortness of breath. No nausea, vomiting, fever, chills, chest pain, headache, or rash. MEDICATION: Reviewed. As far as Infectious Disease point of view, the patient is on Rocephin. LABORATORY STUDIES: White count of 10.91, hemoglobin 8.8, and platelet 142. Sodium 143, potassium 4.2, and creatinine 8.22. Serology: Coronavirus PCR not detected on 02/23. Hepatitis panel pending. RADIOLOGY STUDIES: The patient had modified barium swallow, which I do not have access to the result. PHYSICAL EXAMINATION: VITAL SIGNS: Temperature is 98.7, pulse 82, respirations 20, and blood pressure 158/70. GENERAL: Alert and oriented, no acute distress. CV: S1-S2. CHEST: Equal expansion. Clear to auscultation. No acute distress. ABDOMEN: Soft, nontender. No distention. HEENT: Moist. No pallor. No JVD. EXTREMITIES: Moves all. No acute distress. No significant edema. ASSESSMENT AND PLAN: 1. Community-acquired pneumonia. 2. End-stage renal disease. 3. Fluid overload. 4. Obesity. 5. Diabetes. The patient had a swallow test/barium swallow test today, pending for result, stopped doxycycline yesterday, continue with Rocephin, follow with a swallow test. Continue to monitor the patient clinically and follow with the labs. Discussed with Dr. Greco in details. Please refer to chart for more information. Dictated by David Khoury PA-C (Al) Crystal Greco MD /MODL /[id number]
--- NOTE | 2020-02-27 12:09 | NUR ---
Home health referral faxed to [facility] Staff. / .
--- NOTE | 2020-02-27 13:14 | NUR ---
CALLED [facility] TO SCHEDULE PATIENT FOR HD. WAITING FOR CALL BACK.
--- NOTE | 2020-02-27 15:40 | NUR ---
CALLED [facility] A SECOND TIME TO FIND OUT ETA, PER PATIENT'S REQUEST.
--- NOTE | 2020-02-27 16:05 | NUR ---
Received call from [facility] with [facility]. States they received clinicals and are currently pending insurance auth.
[2020-02-27] MEDS ORDERED: EPOETIN ALFA-EPBX 10,000 UNIT/ML VIAL SC SCH (17:00)
--- NOTE | 2020-02-27 17:26 | NUR ---
CALLED [facility] ONE MORE TIME FOR ETA ON PATIENT'S HD. WAITING FOR CALL BACK.
--- NOTE | 2020-02-27 17:40 | NUR ---
CALLED [facility] TO FIND OUT ETA ONE MORE TIME AND SEE IF SOMEBODY CAN CALL NURSE BACK.
--- NOTE | 2020-02-27 19:17 | NUR ---
BEDSIDE SHIFT REPORT GIVEN TO ONCOMING NURSE. PATIENT IS RESTING IN BED, NO ACUTE DISTRESS NOTED. CALL LIGHT WITHIN REACH. BED IN THE LOWEST POSITION.
--- NOTE | 2020-02-27 19:22 | NUR ---
Patient visited in room during nursing rounds. Patient awake and alert x3. Ambulatory with assistance prn. Pt about to have hemodialysis tonight to be done by dialysis nurse (FRANKLIN Adhikari). Left arm AV fistula intact and ready for use. No distress of discomfort noted. Call srivastava within reach. Will monitor pt closely.
--- NOTE | 2020-02-27 19:30 | NUR ---
Hemodialysis started on patient. Patient v/s and condition stable.
[2020-02-27] MEDS ORDERED: SODIUM CHLORIDE 0.9% 1000ML 2,000 ML ONE (19:37)
[2020-02-27] MEDS: INSULIN GLARGINE 100 UNITS/ML VIAL SQ SCH (21:00)
--- NOTE | 2020-02-27 21:00 | NUR ---
Fingerstick blood glucose reading was 161. Insulin meds (Humalog and Lantus) will not be given at this time since patient is having hemodialysis. Will re-check blood glucose after dialysis is done and nurse will determine if insulin doses still necessary at that time. Pt aware and agreed on this plan.
--- NOTE | 2020-02-27 23:04 | NUR ---
Hemodialysis done. Per report from dialysis nurse (Zeynep), patient tolerated dialysis with output of 1.6L. V/S stable (BP = 126/66, HR =101).
[2020-02-27] MEDS: PRAVASTATIN 20 MG TAB PO SCH (23:25)
[2020-02-27] MEDS: DONEPEZIL HCL 5 MG TAB PO SCH (23:25)
--- NOTE | 2020-02-27 23:27 | NUR ---
Fingerstick blood glucose check was 95. Humalog and Lantus doses were not given.
[2020-02-28] VITALS (8 sets, daily range): BP systolic 99–156; BP diastolic 48–83
[2020-02-28] MEDS: INSULIN LISPRO 100 UNIT/1 ML 3ML VIAL SQ SCH ×4 (07:30→21:26)
--- NOTE | 2020-02-28 07:30 | NUR ---
PT UP IN BED AWAKE,DENIES PAIN,NO DISTRESS NOTED
[2020-02-28] MEDS: FLUTICASONE PROPIONATE NASAL SPRAY NS SCH ×2 (08:48→17:00)
[2020-02-28] MEDS: PANTOPRAZOLE SOD 40 MG TABEC PO SCH (08:48)
[2020-02-28] MEDS: LORATADINE 10 MG TAB PO SCH (08:48)
[2020-02-28] MEDS: ASPIRIN 81 MG ENTERIC COATED PO SCH (08:48)
[2020-02-28] MEDS: LOSARTAN POTASSIUM 25 MG TAB PO SCH (08:49)
[2020-02-28] MEDS: CARVEDILOL 12.5 MG TAB PO SCH (08:49)
--- NOTE | 2020-02-28 10:29 | Progress Note ---
DATE: SUBJECTIVE: The patient is seen and evaluated. Available labs and notes reviewed. Discussed with staff. The patient is seen with the nurse in the room. REVIEW OF SYSTEMS: Complained of sweating, but no fever. No nausea. No vomiting. No chest pain. No shortness of breath. No diarrhea. OBJECTIVE: VITAL SIGNS: Temperature is 98.6 with a maximum temperature of a 100 last night, midnight. Pulse is 83, respirations 18, and blood pressure 118/61. GENERAL: Alert and oriented, in no acute distress. CV: S1-S2. CHEST: Equal expansion. Clear to auscultation. No acute distress. ABDOMEN: Soft and nontender. No distention. HEENT: Moist. No pallor. No JVD. EXTREMITIES: Weak. No obvious acute finding. MEDICATIONS: Medication list reviewed as far as Infectious Disease point of view, the patient is on Rocephin. LABORATORY STUDIES: No new CBC or BMP from today. Serology: No new serology. Coronavirus PCR was not detected on 02/23. Hep panel was negative. MICROBIOLOGY: Blood culture 02/23 and sputum culture 02/23 are negative. RADIOLOGY STUDIES: No new radiology studies available, had a modified barium swallow yesterday. Pending full pathology report. ASSESSMENT AND PLAN: 1. Community-acquired pneumonia. 2. End-stage renal disease. 3. Diabetes. 4. Fluid overload. 5. Obesity. 6. The patient remains on Rocephin, follow with the barium swallow test. Continue PT/OT. Monitor the patient clinically and follow with the labs. 7. End-stage renal disease. Dialysis per Nephrology. Please refer to chart for more information. Discussed with Dr. Greco in details. Dictated by David Khoury PA-C (Al) Crystal Greco MD /MODL /[id number]
[2020-02-28] MEDS: CEFTRIAXONE SOD 1 GM/NS 50 ML 50 ML IV SCH (11:47)
--- NOTE | 2020-02-28 15:30 | NUR ---
SPOKE WITH [facility] REGARDING POSSIBLE DISCHAGE IN AM ,WILL TRY TO DO DIALYSIS IN AM
--- NOTE | 2020-02-28 17:43 | NUR ---
PT UP IN BED ,DENIES PAIN,O2 SATS ON RA 96%,BUT PT REQUESTING TO HAVE O2 ON
--- NOTE | 2020-02-28 19:00 | NUR ---
RECEIVED PATIENT IN BEDSIDE SHIFT REPORT. PATIENT RESTING IN BED AT THIS TIME. NO PAIN REPORTED. NO S&S OF DSITRESS NOTED. BED LOCKED IN LOWEST POSITION, SIDE RAILS UPX2, CALL LIGHT IN REACH.
[2020-02-28] MEDS: PRAVASTATIN 20 MG TAB PO SCH (21:25)
[2020-02-28] MEDS: DONEPEZIL HCL 5 MG TAB PO SCH (21:25)
[2020-02-28] MEDS: INSULIN GLARGINE 100 UNITS/ML VIAL SQ SCH (21:26)
[2020-02-29] VITALS: BP 140/64
[2020-02-29 04:00] VITALS: BP 143/58
[2020-02-29 05:43] LABS: BASOPHILS # (AUTO) 0.1 (0.0-0.1); BASOPHILS % 0.7 % (0.0-1.0); EOSINOPHILS # (AUTO) 0.6 (0.0-0.4); EOSINOPHILS % 5.8 % (0.0-6.0); HEMATOCRIT 28.6 % (34.2-44.1); HEMOGLOBIN 8.8 g/dL (12.0-16.0); LYMPHOCYTES # (AUTO) 1.5 (1.0-3.2); LYMPHOCYTES % 14.8 % (18.0-39.1); MEAN CORPUSCULAR HEMOGLOBIN 32.5 pg (28-32); MEAN CORPUSCULAR HGB CONC 30.8 g/dL (31-35); MEAN CORPUSCULAR VOLUME 105.5 fL (81-99); MONOCYTES # (AUTO) 0.8 (0.2-0.8); MONOCYTES % 7.5 % (4.4-11.3); NEUTROPHILS # (AUTO) 6.8 (2.1-6.9); NEUTROPHILS % 68.3 % (38.7-80.0); PLATELET COUNT 134 x10e3/uL (140-360); RED BLOOD COUNT 2.71 x10e6/uL (3.6-5.1); RED CELL DISTRIBUTION WIDTH 15.2 % (11.7-14.4)
[2020-02-29 06:16] LABS: ANION GAP 19.1 mmol/L (8-16); CALCIUM 10.4 mg/dL (8.4-10.2); CREATININE, SERUM 7.04 mg/dL (0.57-1.11); MAGNESIUM 2.2 MG/DL (1.3-2.1); PHOSPHORUS 8.9 MG/DL (2.3-4.7); POTASSIUM 4.1 mmol/L (3.5-5.1)
[2020-02-29] MEDS: ALBUTEROL SULFATE HFA 8GM INHALATION AEROSOL INH PRN (07:20)
[2020-02-29 07:30] VITALS: BP 133/60
[2020-02-29] MEDS: INSULIN LISPRO 100 UNIT/1 ML 3ML VIAL SQ SCH (07:30)
--- NOTE | 2020-02-29 07:30 | NUR ---
PT UP IN BED DENIES PAIN,NO DISTRESS NOTED.
[2020-02-29 07:35] VITALS: BP 133/60
[2020-02-29] MEDS: PANTOPRAZOLE SOD 40 MG TABEC PO SCH (08:17)
[2020-02-29] MEDS: FLUTICASONE PROPIONATE NASAL SPRAY NS SCH (08:17)
[2020-02-29] MEDS: ASPIRIN 81 MG ENTERIC COATED PO SCH (08:17)
[2020-02-29] MEDS: LORATADINE 10 MG TAB PO SCH (08:18)
[2020-02-29] MEDS ORDERED: SODIUM CHLORIDE 0.9% 1000ML 2,000 ML ONE (08:25)
--- NOTE | 2020-02-29 08:30 | NUR ---
DIALYSIS STARTED,SPOKE WITH [facility],STATED PT TO BE DISCHARGED.
[2020-02-29] MEDS: LOSARTAN POTASSIUM 25 MG TAB PO SCH (09:00)
[2020-02-29] MEDS: CARVEDILOL 12.5 MG TAB PO SCH (09:00)
[2020-02-29 11:11] LABS: PLATELET ESTIMATE ADEQUATE; POLYCHROMASIA FEW; RBC MORPHOLOGY COMMENT NORMAL
[2020-02-29 11:12] LABS: PLATELET MORPHOLOGY COMMENT NORMAL
[2020-02-29 11:26] VITALS: BP 110/58
--- NOTE | 2020-02-29 11:29 | Progress Note ---
DATE: SUBJECTIVE: The patient is seen and evaluated, discussed with Dr. Greco, discussed with the nurse. No new events overnight. Discussed with the attendings team Mr. Matthew NP. REVIEW OF SYSTEMS: No nausea, vomiting, fever, chills, chest pain, shortness of breath, headache, rash, dysuria, or polyuria. PHYSICAL EXAMINATION: VITAL SIGNS: Temperature 98.4, pulse is 84, respiration 21, and blood pressure 132/60. GENERAL: Alert and oriented, in no acute distress. CV: S1, S2. CHEST: Equal expansion, clear to auscultation, in no acute distress. ABDOMEN: Soft, nontender, no distention. HEENT: Moist. No pallor. No JVD. EXTREMITIES: No edema, in no acute distress, no cyanosis. MEDICATIONS: Medication list is reviewed. From Infectious Disease point of view, the patient is on Rocephin. LABORATORY STUDIES: Sodium 140, potassium 4.1, and creatinine 7.04. The patient on dialysis. White blood cells 10, hemoglobin 8.8, and platelets 134. MICROBIOLOGY: Blood culture on 02/23 and sputum culture on 02/23 are negative found on results of culture. RADIOLOGIC STUDIES: There are no new radiology studies available. ASSESSMENT AND PLAN: 1. Community-acquired pneumonia. 2. End-stage renal disease. 3. Diabetes. 4. Fluid overload. 5. Obesity. 6. Debility. The patient is currently on Rocephin. Discharge planning noted. Had a swallow test done on 02/26. Discharge planning noted. Discussed with Dr. Greco. Okay to discharge with Augmentin 875 p.o. daily for 3 days. Prescription is in the chart. Please refer to chart for more information. Discussed with Dr. Greco in detail. Dictated by David Khoury PA-C (Al) Crystal Greco MD /MODL /[id number]
[2020-02-29] MEDS ORDERED: CEFUROXIME250 MG PO (12:27)
[2020-02-29] MEDS ORDERED: TESSALON PERLE100 MG PO (12:27)
[2020-02-29] MEDS ORDERED: Fluticasone Propionate NS (12:27)
[2020-02-29] MEDS ORDERED: AUGMENTIN 875-1 EACH PO (12:29)
--- NOTE | 2020-03-01 03:28 | Discharge Summary ---
CONSULTING PHYSICIANS: Crystal Greco MD, with Infectious Diseases; Dimple Shepard MD, with Nephrology; Ming Lay MD, with Pulmonology. CHIEF COMPLAINT: Cough, congestion, runny nose. HISTORY OF PRESENT ILLNESS: The patient is a 79-year-old female, was admitted after being turned away at dialysis center due to cough and congestion for 3 weeks. She admitted to associated watery eyes, runny nose, but denied fever. She denied any sick contacts or recent travel. PAST MEDICAL HISTORY: End-stage renal disease, hypertension, type 2 diabetes mellitus, peripheral neuropathy, and gastroesophageal reflux disease. PAST SURGICAL HISTORY: Right total knee replacement, cataract surgery, bladder suspension, AV fistula, right total hip replacement, hysterectomy, parathyroidectomy. FAMILY HISTORY: Mother had cancer. SOCIAL HISTORY: Noncontributory. She quit smoking 1 year ago. ALLERGIES: CODEINE AND ETODOLAC. ADMITTING DIAGNOSES: 1. Community-acquired pneumonia, present on admission. 2. End-stage renal disease with fluid overload. 3. Hypertension with end-stage renal disease. 4. Type 2 diabetes mellitus with end-stage renal disease. 5. Transaminitis. DISCHARGE DIAGNOSES: 1. Bilateral lower lobe community-acquired pneumonia, present on admission. 2. Chronic kidney disease 5. 3. Hypertension with chronic kidney disease 5. 4. Type 2 diabetes mellitus with chronic kidney disease 4. On admission, WBC 13.98, hemoglobin 8.9, hematocrit 28.4, platelets 104. PT 14.2, INR 1.04, PTT 21.9. Sodium 142, potassium 4.2, chloride 100, CO2 of 21, anion gap 25.2, BUN 78, creatinine 8.4, estimated GFR 5, glucose 157, calcium 10.6, magnesium 2.4, total protein 0.4, AST 55, ALT 71, alkaline phosphatase 158. Creatine kinase 99, CK-MB 1.9, troponin I 0.031. Total protein 7.6, albumin 2.8. Mixon virus by PCR on 02/23 was not detected. Hepatitis profile was negative. Blood cultures x2 showed no growth after 5 days, this is the final report and was collected 02/23. Sputum Gram stain culture and sensitivity showed no growth and that is the final result. Initial chest x-ray showed lungs well inflated, prominence/coarsening of the interstitial markings predominantly in the lung bases, slightly increased since prior exam, stable blunting of the right lateral costophrenic sulcus, possibly reflecting small volume pleural effusion or pleural thickening, mild enlargement of the cardiac silhouette. Follow up chest x-ray showed bilateral patchy airspace opacities predominantly seen in the right mid lung and bilateral lower lungs, which are more prominent than on prior exam suggesting multifocal pneumonia, stable prominence of the pulmonary interstitium. She underwent a modified barium swallow on 02/26. Per speech therapist's note, the patient presented with safe functional swallow and protected her airway with all consistencies tested. She passed the MBS. B-type natriuretic peptide on admission 195. Hemoglobin A1c was 5.9%, parathyroid hormone 45. During her stay, she was treated with ceftriaxone IV antibiotic, guaifenesin, dextromethorphan, Tessalon Perles, fluticasone propionate, albuterol inhaler. Her LFTs trended down and improved. She received hemodialysis on 02/26 with 1.6 L removed. She is currently undergoing hemodialysis now with a goal of 2 L with plans to discharge right after dialysis. Today, temperature 98.4, heart rate 84, blood pressure 133/60, respirations 21, oxygen saturation 96% on room air. Yesterday, she had sweating, poor appetite, nauseated, malaise, low energy, sleepy, generally did not feel well. Today, she is feeling much better. Case was discussed with Al, physician's research assistant, with Dr. Greco and the patient can discharge home from his standpoint on Augmentin 875 mg p.o. daily for three days. We will also send her home with a prescription for fluticasone propionate and Tessalon Perles for runny/stuffy nose and cough. Today, sodium 140, potassium 4.1, chloride 101, CO2 of 24, BUN 56, creatinine 7.04, estimated GFR six, glucose 79, and calcium 10.4, phosphorus 8.9, magnesium 2.2. Fingerstick blood glucose level 97. WBC 10.0, hemoglobin 8.8, hematocrit 28.6, platelets 134. She is to continue renal ADA diet. Follow up with her PCP, Dr. Chris Hartmann, in 1-2 weeks. Follow up with Dr. Greco as directed. Continue outpatient hemodialysis as she normally would. Activity level as tolerated. Dictated by Matthew W Dylon, CAFETERIA AIDE MD STEPHANIE Gamez/TIKI /[id number]
== END 2020-02-29 14:30 | disposition home or self-care (01) | DRG 193 ==
LOC: ER 10:22 → ERHOLD 11:16 → IMCU 12:36 → MED/SURG3 20:06
PROVIDERS: ADMIT Internal Medicine; ATTEND Internal Medicine
PROC: 5A1D70Z Performance of Urinary Filtration, Intermittent, Less than 6 Hours Per Day (ICD-10-PCS; principal; 2020-02-24)
DX: J18.9 Pneumonia, unspecified organism (principal); N18.6 End stage renal disease; I12.0 Hypertensive chronic kidney disease with stage 5 chronic kidney disease or end stage renal disease; E87.70 Fluid overload, unspecified; E11.22 Type 2 diabetes mellitus with diabetic chronic kidney disease; Z99.2 Dependence on renal dialysis; Z11.59 Encounter for screening for other viral diseases; Z96.653 Presence of artificial knee joint, bilateral; Z96.641 Presence of right artificial hip joint; Z87.891 Personal history of nicotine dependence; E66.9 Obesity, unspecified; Z68.26 Body mass index [BMI] 26.0-26.9, adult; K21.9 Gastro-esophageal reflux disease without esophagitis
CPT/HCPCS: 36415; 71045; 74230; 80048; 80053; 82550; 82553; 82948; 83036; 83735; 83880; 83970; 84100; 84484; 85025; 85610; 85730; 87040; 87070; 87205; 87635; 90962; 93005; 94664; 96372; 97139; 99284; J0696; J1815; J1940; J7030; J7050

== ENCOUNTER 2020-11-02 09:46 | Inpatient (IN) | payer MEDICARE ==
[~2020-11-02] VITALS: Ht 170.2 cm; Wt 75.7 kg
[~2020-11-02 09:46] MED LIST changes: +AUGMENTIN 875-1 EACH PO; +CEFUROXIME250 MG PO; +Fluticasone Propionate NS; +HUMALOG100 UNIT/1 SQ; +LANTUS 3ML100 UNITS/ SQ; +LOSARTAN POTASS50 MG PO; +RENA-VITE TABL0.8 MG PO; +TESSALON PERLE100 MG PO; +VELPHORO500 MG PO; +prevagen PO
[2020-11-02] MEDS ORDERED: DEXAMETHASONE SOD PHOS 10 MG/1 ML VIAL IV ONE (10:30)
[2020-11-02 11:09] LABS: BASOPHILS % 0.3 % (0.0-1.0); EOSINOPHILS % 0.3 % (0.0-6.0); HEMATOCRIT 33.2 % (34.2-44.1); HEMOGLOBIN 10.6 g/dL (12.0-16.0); LYMPHOCYTES # (AUTO) 0.6 (1.0-3.2); LYMPHOCYTES % 4.4 % (18.0-39.1); MEAN CORPUSCULAR HEMOGLOBIN 31.8 pg (28-32); MEAN CORPUSCULAR HGB CONC 31.9 g/dL (31-35); MEAN CORPUSCULAR VOLUME 99.7 fL (81-99); MONOCYTES # (AUTO) 0.9 (0.2-0.8); MONOCYTES % 6.8 % (4.4-11.3); NEUTROPHILS % 87.1 % (38.7-80.0); PLATELET COUNT 151 x10e3/uL (140-360); RED BLOOD COUNT 3.33 x10e6/uL (3.6-5.1); RED CELL DISTRIBUTION WIDTH 17.2 % (11.7-14.4)
[2020-11-02] MEDS: CEFTRIAXONE SOD 1 GM/NS 50 ML 50 ML IV SCH (11:09)
[2020-11-02 11:17] LABS: INR 1.32; PROTHROMBIN TIME 17.3 seconds (11.9-14.5)
[2020-11-02 11:26] LABS: ALBUMIN 2.9 g/dL (3.5-5.0); ALBUMIN/GLOBULIN RATIO 0.6 (0.8-2.0); ANION GAP 28.7 mmol/L (8-16); CALCIUM 9.3 mg/dL (8.4-10.2); CREATININE, SERUM 11.48 mg/dL (0.57-1.11); MAGNESIUM 2.8 MG/DL (1.3-2.1); POTASSIUM 5.7 mmol/L (3.5-5.1)
[2020-11-02 11:32] LABS: CREATINE KINASE MB 7.2 ng/mL (0-5.0)
[2020-11-02] MEDS ORDERED: DEXTROSE 50% SYRINGE 50 ML IV STA (11:49)
[2020-11-02] MEDS ORDERED: SODIUM BICARBONATE 8.4% INJ 50 ML SYR IV STA (11:55)
[2020-11-02] MEDS ORDERED: INSULIN REGULAR, HUMAN 100 UNIT/1 ML 3ML VIAL IV ONE (12:00)
[2020-11-02] MEDS: AZITHROMYCIN 500MG/NS 250 ML 250 ML IV SCH (12:00)
[2020-11-02] MEDS ORDERED: CALCIUM GLUCONATE 10% INJ 4.65 MEQ in SODIUM CHLORIDE 0.9% 50ML 50 ML IV ONE (12:30)
[2020-11-02] MEDS ORDERED: ONDANSETRON HCL INJ 2MG/ML 2ML 2 MG/ML VIAL IV PRN ×2 (12:30→20:15)
[2020-11-02] MEDS ORDERED: SODIUM CHLORIDE 0.9% 1000ML 2,000 ML ONE (14:29)
[2020-11-02] MEDS ORDERED: ALBUMIN 25% 12.5GM 0.25 GM/ML BTL IV PRN ×2 (14:45)
[2020-11-02] MEDS ORDERED: EPOETIN ALFA-EPBX 10,000 UNIT/ML VIAL SC SCH (18:00)
[2020-11-02] MEDS ORDERED: DIPHENHYDRAMINE HCL 25 MG CAP PO PRN (20:15)
[2020-11-02] MEDS ORDERED: POLYETHYLENE GLYCOL 3350 17 GM PACK PO PRN (20:15)
[2020-11-02] MEDS ORDERED: SIMETHICONE 80 MG CHEW PO PRN (20:15)
[2020-11-02] MEDS ORDERED: LIDOCAINE 4% PATCH TP PRN (20:15)
[2020-11-02] MEDS ORDERED: DOCUSATE SODIUM 100 MG CAP PO PRN (20:15)
[2020-11-02] MEDS ORDERED: MELATONIN 5 MG TABLET PO PRN (20:15)
[2020-11-02] MEDS ORDERED: ACETAMINOPHEN 325 MG TAB PO PRN (20:15)
[2020-11-02] MEDS ORDERED: DEXTROSE 50% SYRINGE 50 ML IV PRN ×2 (20:15→20:30)
[2020-11-03] VITALS (8 sets, daily range): BP systolic 152–181; BP diastolic 70–84
[2020-11-03] MEDS: BENZONATATE 100 MG CAP PO PRN (05:00)
[2020-11-03 08:25] LABS: BASOPHILS % 0.3 % (0.0-1.0); EOSINOPHILS # (AUTO) 0.4 (0.0-0.4); EOSINOPHILS % 2.9 % (0.0-6.0); HEMATOCRIT 37.7 % (34.2-44.1); HEMOGLOBIN 12.1 g/dL (12.0-16.0); LYMPHOCYTES # (AUTO) 0.5 (1.0-3.2); LYMPHOCYTES % 4.4 % (18.0-39.1); MEAN CORPUSCULAR HEMOGLOBIN 31.7 pg (28-32); MEAN CORPUSCULAR HGB CONC 32.1 g/dL (31-35); MEAN CORPUSCULAR VOLUME 98.7 fL (81-99); MONOCYTES # (AUTO) 0.8 (0.2-0.8); MONOCYTES % 6.3 % (4.4-11.3); NEUTROPHILS # (AUTO) 10.2 (2.1-6.9); PLATELET COUNT 137 x10e3/uL (140-360); RED BLOOD COUNT 3.82 x10e6/uL (3.6-5.1); RED CELL DISTRIBUTION WIDTH 17.3 % (11.7-14.4)
[2020-11-03 08:58] LABS: CREATINE KINASE MB 4.3 ng/mL (0-5.0)
[2020-11-03 09:05] LABS: ALBUMIN 2.8 g/dL (3.5-5.0); ALBUMIN/GLOBULIN RATIO 0.6 (0.8-2.0); ANION GAP 27.8 mmol/L (8-16); CALCIUM 9.6 mg/dL (8.4-10.2); CREATININE, SERUM 7.33 mg/dL (0.57-1.11); POTASSIUM 4.8 mmol/L (3.5-5.1)
[2020-11-03 09:25] LABS: MAGNESIUM 2.4 MG/DL (1.3-2.1); PHOSPHORUS 9.2 MG/DL (2.3-4.7)
[2020-11-03] MEDS: CEFTRIAXONE SOD 1 GM/NS 50 ML 50 ML IV SCH (10:15)
[2020-11-03] MEDS ORDERED: SODIUM CHLORIDE 0.9% 250ML 250 ML ONE (11:19)
[2020-11-03] MEDS: HYDRALAZINE HCL 20 MG/ML VIAL IV PRN (12:31)
[2020-11-03] MEDS: PANTOPRAZOLE SOD 40 MG TABEC PO SCH (14:33)
[2020-11-03] MEDS: PRAVASTATIN 20 MG TAB PO SCH (20:49)
[2020-11-03] MEDS: DONEPEZIL HCL 5 MG TAB PO SCH (20:49)
[2020-11-03] MEDS: HEPARIN SOD (PORCINE) 5,000 UNIT/ML VIAL SC SCH (21:00)
[2020-11-04] VITALS (9 sets, daily range): BP systolic 150–176; BP diastolic 76–109
[2020-11-04 05:55] LABS: BASOPHILS # (AUTO) 0.1 (0.0-0.1); BASOPHILS % 0.4 % (0.0-1.0); EOSINOPHILS % 0.2 % (0.0-6.0); HEMATOCRIT 37.8 % (34.2-44.1); HEMOGLOBIN 12.2 g/dL (12.0-16.0); LYMPHOCYTES # (AUTO) 0.8 (1.0-3.2); LYMPHOCYTES % 6.2 % (18.0-39.1); MEAN CORPUSCULAR HEMOGLOBIN 31.8 pg (28-32); MEAN CORPUSCULAR HGB CONC 32.3 g/dL (31-35); MEAN CORPUSCULAR VOLUME 98.4 fL (81-99); MONOCYTES # (AUTO) 0.9 (0.2-0.8); MONOCYTES % 6.6 % (4.4-11.3); NEUTROPHILS # (AUTO) 10.9 (2.1-6.9); NEUTROPHILS % 84.9 % (38.7-80.0); PLATELET COUNT 126 x10e3/uL (140-360); RED BLOOD COUNT 3.84 x10e6/uL (3.6-5.1); RED CELL DISTRIBUTION WIDTH 17.1 % (11.7-14.4)
[2020-11-04 05:57] LABS: ANION GAP 24.4 mmol/L (8-16); CALCIUM 9.3 mg/dL (8.4-10.2); CREATININE, SERUM 7.96 mg/dL (0.57-1.11); POTASSIUM 4.4 mmol/L (3.5-5.1)
[2020-11-04] MEDS: PANTOPRAZOLE SOD 40 MG TABEC PO SCH (08:24)
[2020-11-04] MEDS: CARVEDILOL 12.5 MG TAB PO SCH (08:34)
[2020-11-04] MEDS: HEPARIN SOD (PORCINE) 5,000 UNIT/ML VIAL SC SCH ×2 (08:35→21:00)
[2020-11-04] MEDS: AZITHROMYCIN 500MG/NS 250 ML 250 ML IV SCH (10:00)
[2020-11-04] MEDS: BENZONATATE 100 MG CAP PO PRN ×2 (10:28→16:21)
[2020-11-04] MEDS: CEFTRIAXONE SOD 1 GM/NS 50 ML 50 ML IV SCH (11:15)
[2020-11-04] MEDS ORDERED: DEXTROSE 50% SYRINGE 50 ML IV PRN (12:30)
[2020-11-04] MEDS: SEVELAMER CARBONATE 800 MG TAB PO SCH (16:19)
[2020-11-04] MEDS: AMLODIPINE BESYLATE 5 MG TAB PO SCH (16:19)
[2020-11-04] MEDS: INSULIN LISPRO 100 UNIT/1 ML 3ML VIAL SQ SCH ×2 (16:30→21:01)
[2020-11-04] MEDS: PRAVASTATIN 20 MG TAB PO SCH (21:00)
[2020-11-04] MEDS: DONEPEZIL HCL 5 MG TAB PO SCH (21:00)
[2020-11-05] VITALS (7 sets, daily range): BP systolic 110–182; BP diastolic 63–91
[2020-11-05] MEDS: BENZONATATE 100 MG CAP PO PRN ×2 (04:49→12:31)
[2020-11-05] MEDS: HYDRALAZINE HCL 20 MG/ML VIAL IV PRN (05:40)
[2020-11-05] MEDS: INSULIN LISPRO 100 UNIT/1 ML 3ML VIAL SQ SCH ×3 (07:30→16:30)
[2020-11-05] MEDS ORDERED: SODIUM CHLORIDE 0.9% 1000ML 2,000 ML ONE (08:10)
[2020-11-05] MEDS: SEVELAMER CARBONATE 800 MG TAB PO SCH ×3 (08:19→16:07)
[2020-11-05] MEDS: PANTOPRAZOLE SOD 40 MG TABEC PO SCH (08:19)
[2020-11-05] MEDS: CARVEDILOL 12.5 MG TAB PO SCH (08:20)
[2020-11-05] MEDS: AMLODIPINE BESYLATE 5 MG TAB PO SCH (08:20)
[2020-11-05] MEDS: HEPARIN SOD (PORCINE) 5,000 UNIT/ML VIAL SC SCH ×2 (09:00→20:50)
[2020-11-05] MEDS ORDERED: BALSAM PERU/CASTOR OIL 60 GM OINT...G. TP SCH (09:00)
[2020-11-05] MEDS: AZITHROMYCIN 500MG/NS 250 ML 250 ML IV SCH (12:17)
[2020-11-05] MEDS: CEFTRIAXONE SOD 1 GM/NS 50 ML 50 ML IV SCH (14:15)
[2020-11-05 14:26] LABS: BASOPHILS # (AUTO) 0.1 (0.0-0.1); BASOPHILS % 0.5 % (0.0-1.0); EOSINOPHILS # (AUTO) 0.1 (0.0-0.4); EOSINOPHILS % 1.1 % (0.0-6.0); HEMATOCRIT 35.3 % (34.2-44.1); HEMOGLOBIN 11.2 g/dL (12.0-16.0); LYMPHOCYTES # (AUTO) 0.5 (1.0-3.2); LYMPHOCYTES % 4.7 % (18.0-39.1); MEAN CORPUSCULAR HGB CONC 31.7 g/dL (31-35); MEAN CORPUSCULAR VOLUME 100.9 fL (81-99); MONOCYTES # (AUTO) 0.6 (0.2-0.8); MONOCYTES % 5.6 % (4.4-11.3); NEUTROPHILS # (AUTO) 9.3 (2.1-6.9); NEUTROPHILS % 84.2 % (38.7-80.0); PLATELET COUNT 139 x10e3/uL (140-360); RED CELL DISTRIBUTION WIDTH 17.2 % (11.7-14.4)
[2020-11-05] MEDS ORDERED: CARVEDILOL 12.5 MG TAB PO SCH (17:00)
[2020-11-05] MEDS ORDERED: CEFDINIR300 MG PO (17:53)
[2020-11-05] MEDS: DONEPEZIL HCL 5 MG TAB PO SCH (20:50)
[2020-11-05] MEDS: PRAVASTATIN 20 MG TAB PO SCH (20:50)
== END 2020-11-05 21:09 | disposition home or self-care (01) | DRG 193 ==
LOC: ER 10:22 → ERHOLD 12:24 → MED/SURG2 11-03 04:31
PROVIDERS: ADMIT Internal Medicine; ATTEND Internal Medicine
PROC: 5A1D70Z Performance of Urinary Filtration, Intermittent, Less than 6 Hours Per Day (ICD-10-PCS; principal; 2020-11-02)
PROC: 5A1D70Z Performance of Urinary Filtration, Intermittent, Less than 6 Hours Per Day (ICD-10-PCS; 2020-11-05)
DX: J15.9 Unspecified bacterial pneumonia (principal); J80 Acute respiratory distress syndrome; N18.6 End stage renal disease; I12.0 Hypertensive chronic kidney disease with stage 5 chronic kidney disease or end stage renal disease; E11.22 Type 2 diabetes mellitus with diabetic chronic kidney disease; Z99.2 Dependence on renal dialysis; F03.90 Unspecified dementia, unspecified severity, without behavioral disturbance, psychotic disturbance, mood disturbance, and anxiety; E87.5 Hyperkalemia; D63.1 Anemia in chronic kidney disease; Z96.641 Presence of right artificial hip joint; Z96.651 Presence of right artificial knee joint; Z87.891 Personal history of nicotine dependence; Z88.5 Allergy status to narcotic agent; Z88.8 Allergy status to other drugs, medicaments and biological substances; Z82.49 Family history of ischemic heart disease and other diseases of the circulatory system; Z83.3 Family history of diabetes mellitus
CPT/HCPCS: 36415; 71045; 74018; 80048; 80053; 82550; 82553; 82948; 83735; 83880; 84100; 84484; 85025; 85610; 85730; 87040; 93005; 97139; 99251; 99284; J0360; J0456; J0610; J0696; J1100; J1644; J1817; J2405; J7030; J7050; J7799; U0002

== ENCOUNTER 2020-12-26 14:47 | Emergency (ER) | payer MEDICARE ==
[~2020-12-26] VITALS: Ht 170.2 cm; Wt 75.7 kg
[~2020-12-26 14:47] MED LIST changes: +CEFDINIR300 MG PO
[2020-12-26] MEDS ORDERED: SODIUM CHLORIDE 0.9% 1000ML 1,000 ML IV STA (14:59)
[2020-12-26] MEDS ORDERED: ASPIRIN 81 MG CHEW TAB PO ONE (15:00)
[2020-12-26 15:28] LABS: BASOPHILS # (AUTO) 0.1 (0.0-0.1); BASOPHILS % 0.4 % (0.0-1.0); EOSINOPHILS # (AUTO) 0.3 (0.0-0.4); EOSINOPHILS % 2.1 % (0.0-6.0); HEMATOCRIT 31.2 % (34.2-44.1); HEMOGLOBIN 9.9 g/dL (12.0-16.0); LYMPHOCYTES # (AUTO) 0.6 (1.0-3.2); LYMPHOCYTES % 4.5 % (18.0-39.1); MEAN CORPUSCULAR HEMOGLOBIN 32.2 pg (28-32); MEAN CORPUSCULAR HGB CONC 31.7 g/dL (31-35); MEAN CORPUSCULAR VOLUME 101.6 fL (81-99); MONOCYTES # (AUTO) 0.7 (0.2-0.8); MONOCYTES % 5.7 % (4.4-11.3); NEUTROPHILS # (AUTO) 10.9 (2.1-6.9); NEUTROPHILS % 86.7 % (38.7-80.0); PLATELET COUNT 150 x10e3/uL (140-360); RED BLOOD COUNT 3.07 x10e6/uL (3.6-5.1); RED CELL DISTRIBUTION WIDTH 18.3 % (11.7-14.4)
[2020-12-26 15:45] LABS: ALBUMIN 3.5 g/dL (3.5-5.0); ALBUMIN/GLOBULIN RATIO 0.8 (0.8-2.0); CALCIUM 9.8 mg/dL (8.4-10.2); CREATININE, SERUM 4.48 mg/dL (0.57-1.11)
[2020-12-26 23:18] VITALS: BP 149/85
== END 2020-12-26 21:00 | disposition home or self-care (01) ==
LOC: ER 14:53
DX: M25.552 Pain in left hip (principal); M25.551 Pain in right hip; R50.9 Fever, unspecified; J06.9 Acute upper respiratory infection, unspecified; R53.1 Weakness; R53.81 Other malaise; I12.0 Hypertensive chronic kidney disease with stage 5 chronic kidney disease or end stage renal disease; E11.22 Type 2 diabetes mellitus with diabetic chronic kidney disease; N18.6 End stage renal disease; Z99.2 Dependence on renal dialysis; K21.9 Gastro-esophageal reflux disease without esophagitis; Z96.641 Presence of right artificial hip joint; Z96.651 Presence of right artificial knee joint; Z20.822 Contact with and (suspected) exposure to COVID-19; R94.31 Abnormal electrocardiogram [ECG] [EKG]
CPT/HCPCS: 36415; 71045; 73552; 73590; 80053; 82550; 82553; 83880; 84484; 85025; 93005; 99284; J7030; U0002

== ENCOUNTER 2021-01-02 15:21 | Inpatient (IN) | payer MEDICARE, OTHER ==
[~2021-01-02] VITALS: Ht 170.2 cm; Wt 75.7 kg
[2021-01-02 16:01] LABS: BASOPHILS # (AUTO) 0.1 (0.0-0.1); BASOPHILS % 0.4 % (0.0-1.0); EOSINOPHILS # (AUTO) 0.4 (0.0-0.4); EOSINOPHILS % 2.6 % (0.0-6.0); HEMATOCRIT 30.5 % (34.2-44.1); HEMOGLOBIN 9.8 g/dL (12.0-16.0); LYMPHOCYTES % 6.9 % (18.0-39.1); MEAN CORPUSCULAR HEMOGLOBIN 31.8 pg (28-32); MEAN CORPUSCULAR HGB CONC 32.1 g/dL (31-35); MONOCYTES # (AUTO) 0.6 (0.2-0.8); MONOCYTES % 4.1 % (4.4-11.3); NEUTROPHILS % 83.2 % (38.7-80.0); PLATELET COUNT 223 x10e3/uL (140-360); RED BLOOD COUNT 3.08 x10e6/uL (3.6-5.1); RED CELL DISTRIBUTION WIDTH 18.2 % (11.7-14.4)
[2021-01-02 16:09] LABS: INR 1.15; PARTIAL THROMBOPLASTIN TIME 29.7 seconds (23.8-35.5); PROTHROMBIN TIME 15.5 seconds (11.9-14.5)
[2021-01-02 16:19] LABS: ALBUMIN 2.6 g/dL (3.5-5.0); ALBUMIN/GLOBULIN RATIO 0.5 (0.8-2.0); ANION GAP 20.5 mmol/L (8-16); CALCIUM 9.8 mg/dL (8.4-10.2); CREATININE, SERUM 4.35 mg/dL (0.57-1.11); MAGNESIUM 2.1 MG/DL (1.3-2.1); POTASSIUM 3.5 mmol/L (3.5-5.1)
[2021-01-02 16:26] LABS: CREATINE KINASE MB 1.4 ng/mL (0-5.0)
[2021-01-02] MEDS ORDERED: METOPROLOL TARTRATE INJ 1 MG/ML VIAL IV ONE (18:00)
[2021-01-02 19:03] LABS: COLOR,URINE YELLOW (YELLOW)
[2021-01-02 19:07] LABS: CLARITY,URINE SL CLOUDY (CLEAR); KETONES,URINE NEGATIVE (NEGATIVE); LEUKOCYTE ESTERASE ,URINE SMALL (NEGATIVE); NITRITE,URINE NEGATIVE (NEGATIVE); PROTEIN,URINE DIPSTICK >=300 (NEGATIVE); URINE UROBILINOGEN 0.2 mg/dL (0.2 - 1)
[2021-01-02 19:13] LABS: BACTERIA,URINE MODERATE /HPF; EPITHELIAL CELLS,URINE MANY /LPF; RBC,URINE 0-5 /HPF (0-5); RENAL EPITHELIAL CELLS,URINE RARE; TRANSITIONAL EPI CELLS,URINE FEW
[2021-01-02] MEDS ORDERED: METOPROLOL TARTRATE INJ 1 MG/ML VIAL IV PRN (19:30)
[2021-01-02] MEDS ORDERED: DEXTROSE 50% SYRINGE 50 ML IV PRN (19:30)
[2021-01-02] MEDS ORDERED: ONDANSETRON HCL INJ 2MG/ML 2ML 2 MG/ML VIAL IV PRN (19:30)
[2021-01-02] MEDS: HEPARIN SOD (PORCINE) 5,000 UNIT/ML VIAL SC SCH (19:53)
[2021-01-02] MEDS: INSULIN LISPRO 100 UNIT/1 ML 3ML VIAL SQ SCH (21:00)
[2021-01-02 21:38] VITALS: BP 143/73
[2021-01-03] VITALS (9 sets, daily range): BP systolic 122–186; BP diastolic 67–85
[2021-01-03 01:17] LABS: CREATINE KINASE MB 0.8 ng/mL (0-5.0)
[2021-01-03] MEDS: HEPARIN SOD (PORCINE) 5,000 UNIT/ML VIAL SC SCH ×3 (01:50→17:52)
[2021-01-03] MEDS ORDERED: ACETAMINOPHEN 325 MG TAB PO PRN (05:00)
[2021-01-03] MEDS ORDERED: POLYETHYLENE GLYCOL 3350 17 GM PACK PO PRN (05:00)
[2021-01-03 06:03] LABS: BASOPHILS # (AUTO) 0.1 (0.0-0.1); BASOPHILS % 0.4 % (0.0-1.0); EOSINOPHILS # (AUTO) 0.1 (0.0-0.4); EOSINOPHILS % 1.1 % (0.0-6.0); HEMATOCRIT 30.9 % (34.2-44.1); HEMOGLOBIN 9.5 g/dL (12.0-16.0); LYMPHOCYTES # (AUTO) 0.7 (1.0-3.2); LYMPHOCYTES % 5.9 % (18.0-39.1); MEAN CORPUSCULAR HEMOGLOBIN 31.9 pg (28-32); MEAN CORPUSCULAR HGB CONC 30.7 g/dL (31-35); MEAN CORPUSCULAR VOLUME 103.7 fL (81-99); MONOCYTES # (AUTO) 0.7 (0.2-0.8); MONOCYTES % 5.9 % (4.4-11.3); NEUTROPHILS # (AUTO) 10.3 (2.1-6.9); NEUTROPHILS % 82.7 % (38.7-80.0); PLATELET COUNT 181 x10e3/uL (140-360); RED BLOOD COUNT 2.98 x10e6/uL (3.6-5.1); RED CELL DISTRIBUTION WIDTH 18.3 % (11.7-14.4)
[2021-01-03 06:33] LABS: ALBUMIN 2.3 g/dL (3.5-5.0); ALBUMIN/GLOBULIN RATIO 0.5 (0.8-2.0); ANION GAP 22.4 mmol/L (8-16); CREATININE, SERUM 5.86 mg/dL (0.57-1.11); POTASSIUM 4.4 mmol/L (3.5-5.1)
[2021-01-03 06:55] LABS: CREATINE KINASE MB 0.7 ng/mL (0-5.0)
[2021-01-03 07:05] LABS: CHOL/HDL RATIO 4.6 (3.0-3.6)
[2021-01-03 07:27] LABS: THYROID STIMULATING HORMONE 0.13 uIU/mL (0.350-4.940)
[2021-01-03] MEDS: INSULIN LISPRO 100 UNIT/1 ML 3ML VIAL SQ SCH ×4 (07:30→20:30)
[2021-01-03] MEDS: DOCUSATE SODIUM 100 MG CAP PO SCH ×2 (09:00→17:32)
[2021-01-03] MEDS: PIPERACILLIN/TAZOBAC 3.375 GM in SODIUM CHLORIDE 0.9% 50ML 50 ML IV SCH ×2 (12:50→17:52)
[2021-01-03] MEDS: METOPROLOL TARTRATE INJ 1 MG/ML VIAL IV PRN (12:50)
[2021-01-03] MEDS ORDERED: SODIUM CHLORIDE 0.9% 250ML 250 ML ONE (13:03)
[2021-01-03 15:00] LABS: CREATINE KINASE MB 0.8 ng/mL (0-5.0)
[2021-01-03] MEDS: FAMOTIDINE 20 MG TAB PO SCH (15:00)
[2021-01-03] MEDS ORDERED: AZITHROMYCIN 500MG/NS 250 ML 250 ML IV SCH (17:00)
[2021-01-03] MEDS: BENZONATATE 100 MG CAP PO PRN (17:39)
[2021-01-03] MEDS: AZITHROMYCIN 500MG/NS 250 ML 250 ML IV SCH (20:43)
[2021-01-03] MEDS: PRAVASTATIN 20 MG TAB PO SCH (20:43)
[2021-01-03] MEDS: GUAIFENESIN 200 MG/10 ML UDC PO PRN (23:14)
[2021-01-04] VITALS (8 sets, daily range): BP systolic 110–149; BP diastolic 71–112
[2021-01-04] MEDS: HEPARIN SOD (PORCINE) 5,000 UNIT/ML VIAL SC SCH ×3 (02:00→18:14)
[2021-01-04] MEDS: PIPERACILLIN/TAZOBAC 3.375 GM in SODIUM CHLORIDE 0.9% 50ML 50 ML IV SCH ×5 (06:00→18:13)
[2021-01-04] MEDS: BENZONATATE 100 MG CAP PO PRN ×2 (06:03→17:42)
[2021-01-04 06:13] LABS: BASOPHILS # (AUTO) 0.1 (0.0-0.1); BASOPHILS % 0.5 % (0.0-1.0); EOSINOPHILS # (AUTO) 0.4 (0.0-0.4); EOSINOPHILS % 3.7 % (0.0-6.0); HEMATOCRIT 30.7 % (34.2-44.1); HEMOGLOBIN 9.4 g/dL (12.0-16.0); LYMPHOCYTES # (AUTO) 1.1 (1.0-3.2); LYMPHOCYTES % 9.4 % (18.0-39.1); MEAN CORPUSCULAR HEMOGLOBIN 31.5 pg (28-32); MEAN CORPUSCULAR HGB CONC 30.6 g/dL (31-35); MONOCYTES # (AUTO) 0.8 (0.2-0.8); MONOCYTES % 6.8 % (4.4-11.3); NEUTROPHILS # (AUTO) 8.3 (2.1-6.9); NEUTROPHILS % 74.4 % (38.7-80.0); PLATELET COUNT 169 x10e3/uL (140-360); RED BLOOD COUNT 2.98 x10e6/uL (3.6-5.1); RED CELL DISTRIBUTION WIDTH 18.3 % (11.7-14.4)
[2021-01-04 06:26] LABS: ALBUMIN 2.4 g/dL (3.5-5.0); ALBUMIN/GLOBULIN RATIO 0.5 (0.8-2.0); ANION GAP 24.4 mmol/L (8-16); CREATININE, SERUM 6.89 mg/dL (0.57-1.11); POTASSIUM 4.4 mmol/L (3.5-5.1)
[2021-01-04] MEDS: INSULIN LISPRO 100 UNIT/1 ML 3ML VIAL SQ SCH ×4 (07:30→21:00)
[2021-01-04] MEDS ORDERED: NON-FORMULARY MEDICATION (Losartan Potassium 50 MG) PO SCH (09:00)
[2021-01-04] MEDS: LOSARTAN POTASSIUM 25 MG TAB PO SCH (09:00)
[2021-01-04] MEDS: DOCUSATE SODIUM 100 MG CAP PO SCH ×2 (09:00→17:44)
[2021-01-04] MEDS: ASPIRIN 81 MG ENTERIC COATED PO SCH (09:00)
[2021-01-04] MEDS: FAMOTIDINE 20 MG TAB PO SCH (09:01)
[2021-01-04] MEDS: FOLIC ACID/CYANOCOB/PYRIDOXINE TAB PO SCH (09:01)
[2021-01-04] MEDS: GUAIFENESIN 200 MG/10 ML UDC PO PRN ×2 (10:54→22:21)
[2021-01-04] MEDS ORDERED: SODIUM CHLORIDE 0.9% 1000ML 2,000 ML ONE (14:28)
[2021-01-04] MEDS: METOPROLOL TARTRATE INJ 1 MG/ML VIAL IV PRN (17:40)
[2021-01-04] MEDS: AZITHROMYCIN 500MG/NS 250 ML 250 ML IV SCH (20:31)
[2021-01-04] MEDS: PRAVASTATIN 20 MG TAB PO SCH (20:31)
[2021-01-05] VITALS (8 sets, daily range): BP systolic 118–155; BP diastolic 56–83
[2021-01-05] MEDS: METOPROLOL TARTRATE INJ 1 MG/ML VIAL IV PRN ×2 (00:03→06:03)
[2021-01-05] MEDS: HEPARIN SOD (PORCINE) 5,000 UNIT/ML VIAL SC SCH ×3 (02:00→21:00)
[2021-01-05] MEDS: BENZONATATE 100 MG CAP PO PRN (03:03)
[2021-01-05] MEDS: PIPERACILLIN/TAZOBAC 3.375 GM in SODIUM CHLORIDE 0.9% 50ML 50 ML IV SCH ×5 (06:03→18:21)
[2021-01-05 06:52] LABS: BASOPHILS # (AUTO) 0.1 (0.0-0.1); BASOPHILS % 0.8 % (0.0-1.0); EOSINOPHILS # (AUTO) 0.3 (0.0-0.4); EOSINOPHILS % 2.8 % (0.0-6.0); HEMATOCRIT 32.4 % (34.2-44.1); HEMOGLOBIN 9.7 g/dL (12.0-16.0); LYMPHOCYTES % 9.4 % (18.0-39.1); MEAN CORPUSCULAR HEMOGLOBIN 31.1 pg (28-32); MEAN CORPUSCULAR HGB CONC 29.9 g/dL (31-35); MEAN CORPUSCULAR VOLUME 103.8 fL (81-99); MONOCYTES # (AUTO) 0.8 (0.2-0.8); MONOCYTES % 7.1 % (4.4-11.3); NEUTROPHILS # (AUTO) 8.1 (2.1-6.9); NEUTROPHILS % 74.3 % (38.7-80.0); PLATELET COUNT 153 x10e3/uL (140-360); RED BLOOD COUNT 3.12 x10e6/uL (3.6-5.1); RED CELL DISTRIBUTION WIDTH 18.4 % (11.7-14.4)
[2021-01-05 07:20] LABS: ANION GAP 24.5 mmol/L (8-16); CALCIUM 10.3 mg/dL (8.4-10.2); CREATININE, SERUM 5.4 mg/dL (0.57-1.11); POTASSIUM 4.5 mmol/L (3.5-5.1)
[2021-01-05] MEDS: INSULIN LISPRO 100 UNIT/1 ML 3ML VIAL SQ SCH ×4 (07:30→21:00)
[2021-01-05] MEDS: ASPIRIN 81 MG ENTERIC COATED PO SCH (09:07)
[2021-01-05] MEDS: DOCUSATE SODIUM 100 MG CAP PO SCH ×2 (09:07→17:11)
[2021-01-05] MEDS: FAMOTIDINE 20 MG TAB PO SCH (09:08)
[2021-01-05] MEDS: FOLIC ACID/CYANOCOB/PYRIDOXINE TAB PO SCH (09:08)
[2021-01-05] MEDS: LOSARTAN POTASSIUM 25 MG TAB PO SCH (09:08)
[2021-01-05] MEDS: METOPROLOL TARTRATE 25 MG TAB PO SCH ×2 (09:23→16:50)
[2021-01-05] MEDS ORDERED: TRAMADOL HCL 50 MG TAB PO PRN (20:15)
[2021-01-05] MEDS: PRAVASTATIN 20 MG TAB PO SCH (20:50)
[2021-01-05] MEDS: AZITHROMYCIN 500MG/NS 250 ML 250 ML IV SCH (20:50)
[2021-01-06] VITALS (8 sets, daily range): BP systolic 139–178; BP diastolic 71–96
[2021-01-06] MEDS: METOPROLOL TARTRATE INJ 1 MG/ML VIAL IV PRN (04:40)
[2021-01-06 05:38] LABS: BASOPHILS # (AUTO) 0.1 (0.0-0.1); BASOPHILS % 0.8 % (0.0-1.0); EOSINOPHILS # (AUTO) 0.5 (0.0-0.4); EOSINOPHILS % 4.7 % (0.0-6.0); HEMATOCRIT 29.9 % (34.2-44.1); HEMOGLOBIN 9.1 g/dL (12.0-16.0); LYMPHOCYTES # (AUTO) 1.2 (1.0-3.2); LYMPHOCYTES % 10.6 % (18.0-39.1); MEAN CORPUSCULAR HEMOGLOBIN 31.9 pg (28-32); MEAN CORPUSCULAR HGB CONC 30.4 g/dL (31-35); MEAN CORPUSCULAR VOLUME 104.9 fL (81-99); MONOCYTES # (AUTO) 0.7 (0.2-0.8); MONOCYTES % 6.4 % (4.4-11.3); NEUTROPHILS # (AUTO) 8.2 (2.1-6.9); NEUTROPHILS % 70.7 % (38.7-80.0); PLATELET COUNT 177 x10e3/uL (140-360); RED BLOOD COUNT 2.85 x10e6/uL (3.6-5.1); RED CELL DISTRIBUTION WIDTH 18.5 % (11.7-14.4)
[2021-01-06] MEDS: PIPERACILLIN/TAZOBAC 3.375 GM in SODIUM CHLORIDE 0.9% 50ML 50 ML IV SCH ×3 (06:00)
[2021-01-06 06:01] LABS: ANION GAP 27.3 mmol/L (8-16); CREATININE, SERUM 6.59 mg/dL (0.57-1.11); POTASSIUM 4.3 mmol/L (3.5-5.1)
[2021-01-06] MEDS: INSULIN LISPRO 100 UNIT/1 ML 3ML VIAL SQ SCH ×4 (08:30→21:00)
[2021-01-06] MEDS: ASPIRIN 81 MG ENTERIC COATED PO SCH (08:41)
[2021-01-06] MEDS: LOSARTAN POTASSIUM 25 MG TAB PO SCH (08:41)
[2021-01-06] MEDS: DOCUSATE SODIUM 100 MG CAP PO SCH ×2 (08:41→17:00)
[2021-01-06] MEDS: FAMOTIDINE 20 MG TAB PO SCH (08:43)
[2021-01-06] MEDS: FOLIC ACID/CYANOCOB/PYRIDOXINE TAB PO SCH (08:43)
[2021-01-06] MEDS: METOPROLOL TARTRATE 25 MG TAB PO SCH ×2 (08:43→17:00)
[2021-01-06] MEDS: HEPARIN SOD (PORCINE) 5,000 UNIT/ML VIAL SC SCH ×2 (08:44→20:35)
[2021-01-06] MEDS ORDERED: SODIUM CHLORIDE 0.9% 250ML 250 ML ONE (20:30)
[2021-01-06] MEDS: PRAVASTATIN 20 MG TAB PO SCH (20:33)
[2021-01-06] MEDS: AZITHROMYCIN 500MG/NS 250 ML 250 ML IV SCH (20:33)
[2021-01-06] MEDS: GUAIFENESIN 200 MG/10 ML UDC PO PRN (20:49)
[2021-01-06] MEDS: PIPERACILLIN/TAZOBACTAM 2.25 GM in SODIUM CHLORIDE 0.9% 50ML 50 ML IV SCH (22:00)
[2021-01-07] VITALS: BP 158/80
[2021-01-07 04:00] VITALS: BP 170/80
[2021-01-07] MEDS: PIPERACILLIN/TAZOBACTAM 2.25 GM in SODIUM CHLORIDE 0.9% 50ML 50 ML IV SCH ×2 (05:53→14:04)
[2021-01-07 06:08] LABS: BASOPHILS # (AUTO) 0.1 (0.0-0.1); BASOPHILS % 0.7 % (0.0-1.0); EOSINOPHILS # (AUTO) 0.8 (0.0-0.4); EOSINOPHILS % 6.3 % (0.0-6.0); HEMATOCRIT 28.9 % (34.2-44.1); HEMOGLOBIN 8.9 g/dL (12.0-16.0); LYMPHOCYTES # (AUTO) 1.3 (1.0-3.2); LYMPHOCYTES % 10.6 % (18.0-39.1); MEAN CORPUSCULAR HEMOGLOBIN 32.4 pg (28-32); MEAN CORPUSCULAR HGB CONC 30.8 g/dL (31-35); MEAN CORPUSCULAR VOLUME 105.1 fL (81-99); MONOCYTES # (AUTO) 0.7 (0.2-0.8); MONOCYTES % 5.4 % (4.4-11.3); NEUTROPHILS # (AUTO) 8.9 (2.1-6.9); NEUTROPHILS % 72.2 % (38.7-80.0); PLATELET COUNT 170 x10e3/uL (140-360); RED BLOOD COUNT 2.75 x10e6/uL (3.6-5.1); RED CELL DISTRIBUTION WIDTH 18.6 % (11.7-14.4)
[2021-01-07 06:37] LABS: ANION GAP 25.7 mmol/L (8-16); CALCIUM 10.2 mg/dL (8.4-10.2); CREATININE, SERUM 7.76 mg/dL (0.57-1.11); POTASSIUM 4.7 mmol/L (3.5-5.1)
[2021-01-07] MEDS: INSULIN LISPRO 100 UNIT/1 ML 3ML VIAL SQ SCH ×4 (07:30→21:00)
[2021-01-07] MEDS: ASPIRIN 81 MG ENTERIC COATED PO SCH (09:05)
[2021-01-07] MEDS: LOSARTAN POTASSIUM 25 MG TAB PO SCH (09:06)
[2021-01-07] MEDS: METOPROLOL TARTRATE 25 MG TAB PO SCH ×2 (09:06→18:04)
[2021-01-07] MEDS: FAMOTIDINE 20 MG TAB PO SCH (09:07)
[2021-01-07] MEDS: FOLIC ACID/CYANOCOB/PYRIDOXINE TAB PO SCH (09:07)
[2021-01-07 09:09] VITALS: BP 160/97
[2021-01-07] MEDS: HEPARIN SOD (PORCINE) 5,000 UNIT/ML VIAL SC SCH ×2 (09:18→20:25)
[2021-01-07] MEDS: DOCUSATE SODIUM 100 MG CAP PO SCH ×2 (09:37→17:00)
[2021-01-07 09:46] VITALS: BP 160/97
[2021-01-07] MEDS ORDERED: ONDANSETRON HCL 4 MG ORAL DISINTEGRATING TAB PO PRN (13:00)
[2021-01-07] MEDS ORDERED: SODIUM CHLORIDE 0.9% 1000ML 1,000 ML ONE (14:03)
[2021-01-07] MEDS ORDERED: ZOSYN 2.252.25 GM/51 IV (14:11)
[2021-01-07] MEDS ORDERED: FAMOTIDINE20 MG PO (14:11)
[2021-01-07] MEDS ORDERED: ONDANSETRON ODT4 MG PO (14:11)
[2021-01-07] MEDS ORDERED: MIRALAX17 GM PO (14:11)
[2021-01-07] MEDS ORDERED: GUAIFENESI100 MG/5 M PO (14:11)
[2021-01-07] MEDS ORDERED: COLACE100 MG PO (14:11)
[2021-01-07] MEDS ORDERED: HEPARIN SC (14:11)
[2021-01-07] MEDS ORDERED: ACETAMINOPHEN325 M1 PO (14:11)
[2021-01-07] MEDS ORDERED: AZITHROMYCIN500 M3 IV (14:11)
[2021-01-07] MEDS ORDERED: ULTRAM 50MG50 MG PO (14:11)
[2021-01-07] MEDS ORDERED: Insulin Lispro SQ (14:11)
[2021-01-07] MEDS ORDERED: LOPRESSOR25 MG PO (14:11)
[2021-01-07 17:55] VITALS: BP 158/76
[2021-01-07 20:00] VITALS: BP 180/84
[2021-01-07] MEDS: AZITHROMYCIN 500MG/NS 250 ML 250 ML IV SCH (20:30)
[2021-01-07] MEDS: PRAVASTATIN 20 MG TAB PO SCH (20:30)
[2021-01-07] MEDS: METOPROLOL TARTRATE INJ 1 MG/ML VIAL IV PRN (21:30)
== END 2021-01-07 22:10 | DRG 871 ==
LOC: ER 16:46 → ERHOLD 19:24 → MED/SURG3 21:11
PROVIDERS: ADMIT Internal Medicine; ATTEND Internal Medicine
PROC: 5A1D70Z Performance of Urinary Filtration, Intermittent, Less than 6 Hours Per Day (ICD-10-PCS; principal; 2021-01-02)
DX: A41.9 Sepsis, unspecified organism (principal); J69.0 Pneumonitis due to inhalation of food and vomit; G93.41 Metabolic encephalopathy; N18.6 End stage renal disease; J18.9 Pneumonia, unspecified organism; I12.0 Hypertensive chronic kidney disease with stage 5 chronic kidney disease or end stage renal disease; E11.22 Type 2 diabetes mellitus with diabetic chronic kidney disease; E11.9 Type 2 diabetes mellitus without complications; I48.91 Unspecified atrial fibrillation; Z99.2 Dependence on renal dialysis; R09.02 Hypoxemia; D64.9 Anemia, unspecified
CPT/HCPCS: 36415; 51700; 70450; 70551; 71045; 71250; 80048; 80053; 80061; 81001; 82140; 82550; 82553; 82948; 83036; 83605; 83735; 83880; 84443; 84484; 85025; 85610; 85730; 86706; 87040; 87086; 87340; 93005; 93306; 93880; 97139; 99284; J0456; J1644; J2543; J7030; J7050; U0002